=== PATIENT | male | born 1985 | race Caucasian/White ===

== ENCOUNTER 2018-07-18 17:08 | Emergency (ER) | payer MEDICAID, SELFPAY ==
[2018-07-18 17:13] VITALS: BP 145/79; PULSE 82; RESP 16; TEMP 36.8; O2SAT 99
--- NOTE | 2018-07-18 17:50 | W.ED.GENAD ---
Discharge Plan Disposition Patient Disposition: HOME Condition: Stable Discharge Details Chief Complaint: RespSymp Clinical Impression: Infection, respiratory tract Primary Care Provider: George Vigil ED Provider: Juan Rollins Home Meds and New Rx's Prescriptions: New azithromycin 250 mg tablet 250 mg PO DAILY 4 Days Qty: 4 RF: 0 benzonatate 200 mg capsule 200 mg PO TID PRN (Reason: cough) Qty: 30 RF: 0 Discharge Instructions Instructions: Cold Symptoms (ED) Additional Instructions: Return immediately for any new or significant worsening symptoms including high fevers, difficulty breathing, severe chest pain or further concerns he may have. Otherwise take medication as prescribed and follow-up with your primary care provider for reassessment if not improved in the next week Referrals: George Vigil [Primary Care Provider] - 1 week (If not improved) Medical Decision Making MDM Narrative Medical decision making narrative: Patient presenting to the emergency department for worsening cough. He states that his symptoms began about 2 weeks ago and thought it was his normal annual cold that he gets this time a year over the past 4 days has had significant worsening of cough, low-grade fever, and productive sputum. Physical exam shows clear lung sounds, ethmoid sinus tenderness, and mild erythema to the tonsils otherwise stable afebrile patient. Given patient's symptoms have worsened I am concerned for possible bacterial source of his illness and given his chief complaint of worsening cough I am concerned for a possible bronchitis or sinus infection. Patient is otherwise stable and there is still possibility that this is viral in nature so patient placed upon azithromycin given his otherwise healthy background and low risk. Patient given Tessalon Perles for cough suppressant and encouraged to use [id number] Mucinex and stay well-hydrated along with get plenty of rest. Patient encouraged to return for any new or worsening symptoms. After discussion of diagnosis and plan of care patient patient states no further needs, questions, or concerns at this time HPI General Mode of arrival: ambulatory. Date/Time Provider Initiated Documentation: 07/18/18 17:14. Limitations to Documentation: no limitations. Information obtained by: patient. History of Present Illness 33 year old M presents to the emergency department with the chief complaint of Cough, described as severe, with intensity rated at 5. and is localized to the chest. Patient reports no radiation. Patient started experiencing this week(s) (2) and it has been constant. No relieving factors improve symptom(s), No exacerbating factors reported . Patient did receive the following treatments prior to arrival, other (Tamiflu) Related Data Previous Rx's Medication Instructions Recorded azithromycin 250 mg PO DAILY 4 Days #4 tab 07/18/18 benzonatate 200 mg PO TID PRN #30 cap 07/18/18 Allergies Allergy/AdvReac Type Severity Reaction Status Date / Time aspirin AdvReac Unverified 07/18/18 17:19 General Stated Complaint: RespSymp FABY: 3 Review of Systems Constitutional Reports chills, Reports difficulty sleeping (Due to coughing), Reports fatigue, Reports fever(s) and Reports malaise ENT Reports hoarseness, Reports nasal congestion, Reports sinus pressure and Reports sore throat Cardiovascular Denies dyspnea Respiratory Denies dyspnea Musculoskeletal Denies joint swelling Integumentary/Breasts Denies rash Endocrine Reports fatigue PFSH Social History Smoking/Tobacco Use Status: Current every day Exam Const General: cooperative, comfortable and no acute distress Orientation: alert, awake and oriented x3 HENMT Head: normal to inspection Ears: hearing grossly normal bilaterally Face and sinus: sinus tenderness ethmoid Mouth: oral mucosae normal Throat: abnormal tonsil bilaterally erythema (mild) Eyes General: appearance normal, both eyes and all related structures Conjunctivae: conjunctivae normal Sclera: sclerae normal Neck Neck: normal visual inspection, full ROM, no lymphadenopathy, meningismus present and no JVD Resp Effort & Inspection: normal respiratory effort, able to speak in complete sentences, no audible wheezes, cough Quality of cough: actively coughing and not labored Auscultation: clear to auscultation bilaterally Cardio Rate: regular rate Rhythm: regular rhythm Heart Sounds: S1 normal and S2 normal Skin General skin exam: no rashes or lesions noted and dry skin Rashes: no rashes Neuro General: alert, awake, oriented x3 and gait normal Course Vital Signs Temperature 36.8 C 07/18/18 17:13 Pulse 82 07/18/18 17:13 Respiratory Rate 16 07/18/18 17:13 Blood Pressure 145/79 H 07/18/18 17:13 Pulse Oximetry 99 07/18/18 17:13 Temperature 36.8 C 07/18/18 17:13 Pulse 82 07/18/18 17:13 Respiratory Rate 16 07/18/18 17:13 Blood Pressure 145/79 H 07/18/18 17:13 Pulse Oximetry 99 07/18/18 17:13
--- NOTE | 2018-07-18 18:01 | ED.GENADUL_ITS ---
Discharge Plan Disposition Patient Disposition: HOME Condition: Stable Discharge Details Chief Complaint: RespSymp Clinical Impression: Infection, respiratory tract Primary Care Provider: George Vigil ED Provider: Juan Rollins Home Meds and New Rx's Prescriptions: New azithromycin 250 mg tablet 250 mg PO DAILY 4 Days Qty: 4 RF: 0 benzonatate 200 mg capsule 200 mg PO TID PRN (Reason: cough) Qty: 30 RF: 0 Discharge Instructions Instructions: Cold Symptoms (ED) Additional Instructions: Return immediately for any new or significant worsening symptoms including high fevers, difficulty breathing, severe chest pain or further concerns he may have. Otherwise take medication as prescribed and follow-up with your primary care provider for reassessment if not improved in the next week Referrals: George Vigil [Primary Care Provider] - 1 week (If not improved) Medical Decision Making MDM Narrative Medical decision making narrative: Patient presenting to the emergency department for worsening cough. He states that his symptoms began about 2 weeks ago and thought it was his normal annual cold that he gets this time a year over the past 4 days has had significant worsening of cough, low-grade fever, and productive sputum. Physical exam shows clear lung sounds, ethmoid sinus tenderness, and mild erythema to the tonsils otherwise stable afebrile patient. Given patient's symptoms have worsened I am concerned for possible bacterial source of his illness and given his chief complaint of worsening cough I am concerned for a possible bronchitis or sinus infection. Patient is otherwise stable and there is still possibility that this is viral in nature so patient placed upon azithromycin given his otherwise healthy background and low risk. Patient given Tessalon Perles for cough suppressant and encouraged to use [id number] Mucinex and stay well-hydrated along with get plenty of rest. Patient encouraged to return for any new or worsening symptoms. After discussion of diagnosis and plan of care patient patient states no further needs , questions, or concerns at this time HPI General Mode of arrival: ambulatory . Date/Time Provider Initiated Documentation: 07/18/18 17:14 . Limitations to Documentation: no limitations . Information obtained by: patient . History of Present Illness 33 year old M presents to the emergency department with the chief complaint of Cough, described as severe, with intensity rated at 5. and is localized to the chest. Patient reports no radiation. Patient started experiencing this week(s) (2) and it has been constant. No relieving factors improve symptom(s), No exacerbating factors reported . Patient did receive the following treatments prior to arrival, other (Tamiflu) Related Data Previous Rx's Medication Instructions Recorded azithromycin 250 mg PO DAILY 4 Days #4 tab 07/18/18 benzonatate 200 mg PO TID PRN #30 cap 07/18/18 Allergies Allergy/AdvReac Type Severity Reaction Status Date / Time aspirin AdvReac Unverified 07/18/18 17:19 General Stated Complaint: RespSymp FABY: 3 Review of Systems Constitutional Reports chills, Reports difficulty sleeping (Due to coughing), Reports fatigue, Reports fever(s) and Reports malaise ENT Reports hoarseness, Reports nasal congestion, Reports sinus pressure and Reports sore throat Cardiovascular Denies dyspnea Respiratory Denies dyspnea Musculoskeletal Denies joint swelling Integumentary/Breasts Denies rash Endocrine Reports fatigue PFSH Social History Smoking/Tobacco Use Status: Current every day Exam Const General: cooperative, comfortable and no acute distress Orientation: alert, awake and oriented x3 HENMT Head: normal to inspection Ears: hearing grossly normal bilaterally Face and sinus: sinus tenderness ethmoid Mouth: oral mucosae normal Throat: abnormal tonsil bilaterally erythema (mild) Eyes General: appearance normal, both eyes and all related structures Conjunctivae: conjunctivae normal Sclera: sclerae normal Neck Neck: normal visual inspection, full ROM, no lymphadenopathy, meningismus present and no JVD Resp Effort & Inspection: normal respiratory effort, able to speak in complete sentences, no audible wheezes, cough Quality of cough: actively coughing and not labored Auscultation: clear to auscultation bilaterally Cardio Rate: regular rate Rhythm: regular rhythm Heart Sounds: S1 normal and S2 normal Skin General skin exam: no rashes or lesions noted and dry skin Rashes: no rashes Neuro General: alert, awake, oriented x3 and gait normal Course Vital Signs Temperature 36.8 C 07/18/18 17:13 Pulse 82 07/18/18 17:13 Respiratory Rate 16 07/18/18 17:13 Blood Pressure 145/79 H 07/18/18 17:13 Pulse Oximetry 99 07/18/18 17:13 Temperature 36.8 C 07/18/18 17:13 Pulse 82 07/18/18 17:13 Respiratory Rate 16 07/18/18 17:13 Blood Pressure 145/79 H 07/18/18 17:13 Pulse Oximetry 99 07/18/18 17:13
[2018-07-18 18:15] VITALS: BP 122/80; PULSE 86; RESP 18; TEMP 36.8; O2SAT 99
[2018-07-18] MEDS: Azithromycin 250 MG TAB 500 MG PO (18:15)
[2018-07-18] MEDS: Benzonatate 200 MG CAP PO (18:15)
== END 2018-07-18 18:16 | disposition home or self-care (01) ==
PROVIDERS: Emergency Provider Nurse Practitioner Family; PCP Family Medicine
DX: J06.9 Acute upper respiratory infection, unspecified (principal)
CPT/HCPCS: 99283

== ENCOUNTER 2018-07-21 19:32 | Emergency (ER) | payer MEDICAID, SELFPAY ==
[2018-07-21 19:36] VITALS: PULSE 66; RESP 17; TEMP 37.1; O2SAT 98
--- NOTE | 2018-07-21 19:46 | DI.RAD_ITS ---
SYMPTOMS/DIAGNOSIS: COUGH, WHEEZE PA AND LATERAL CHEST: Comparison 11/03/17. The heart is normal in size. The lungs are clear. The mediastinal structures and pleura appear intact. CONCLUSION: Normal chest.
--- NOTE | 2018-07-21 19:47 | W.ED.GENAD ---
Discharge Plan Disposition Patient Disposition: HOME Condition: Good Discharge Details Chief Complaint: Recheck Clinical Impression: Bronchitis, acute, with bronchospasm Primary Care Provider: George Vigil ED Provider: Reji Staples Home Meds and New Rx's Prescriptions: New prednisone 20 mg tablet 40 mg PO DAILY 5 Days Qty: 10 RF: 0 Continue azithromycin 250 mg tablet 250 mg PO DAILY 4 Days Qty: 4 RF: 0 benzonatate 200 mg capsule 200 mg PO TID PRN (Reason: cough) Qty: 30 RF: 0 Discharge Instructions Instructions: Acute Bronchitis (ED) Additional Instructions: Continue your efforts to decrease smoking. Continue the previously prescribed azithromycin. Take prednisone as prescribed, next dose tomorrow morning. May use albuterol inhaler as needed every 4 hours during times of illness. May use Robitussin at bedtime as needed for cough. Follow-up with Dr. Vigil for recheck if not improving in 5-7 days time Medical Decision Making 33-year-old male smoker presents with persistent cough for 10-14 days time in the face of recent initiation of azithromycin. He is afebrile and well-appearing but with end expiratory wheeze bilaterally on exam. Differential diagnosis is bronchitis, bronchospasm, must rule out a pneumonia. Patient given oral steroids, inhaled DuoNeb and referred for chest x-ray. Patient improved with inhaled beta agonist. No evidence of pneumonia on x-ray. We will have him continue previously prescribed azithromycin. I will add a burst of steroids as do feel he has a significant component of bronchospasm. Will trial a small amount of Robitussin for home use as well. Stable for discharge to home. Return precautions to the ER were discussed with the patient prior to discharge. HPI General Mode of arrival: ambulatory. Date/Time Provider Initiated Documentation: 07/21/18 19:40. Limitations to Documentation: no limitations. Information obtained by: patient. History of Present Illness 33 year old M presents to the emergency department with the chief complaint of Cough, described as moderate, Quality is described as aching, and is localized to the chest. Patient reports no radiation. Patient started experiencing this day(s) No relieving factors improve symptom(s), No exacerbating factors reported . Patient notes other (Post tussive emesis); denies headaches, syncope and weakness. HPI Narrative: Cough: 33-year-old male smoker presents with 2+ weeks of persistent cough, congestion. He was seen on the and started on azithromycin which she has been taking for 3 days. No fever. Minimal production of sputum. No chest pain. Related Data Home Medications Medication Instructions Recorded Confirmed azithromycin 250 mg PO DAILY 4 Days #4 tab 07/18/18 benzonatate 200 mg PO TID PRN #30 cap 07/18/18 prednisone 40 mg PO DAILY 5 Days #10 tab 07/21/18 Previous Rx's Medication Instructions Recorded azithromycin 250 mg PO DAILY 4 Days #4 tab 07/18/18 benzonatate 200 mg PO TID PRN #30 cap 07/18/18 prednisone 40 mg PO DAILY 5 Days #10 tab 07/21/18 Allergies Allergy/AdvReac Type Severity Reaction Status Date / Time aspirin AdvReac Unverified 07/18/18 17:19 General Stated Complaint: Recheck FABY: 4 Review of Systems Review of Systems 6 systems reviewed and otherwise - [facility] Social History Smoking/Tobacco Use Status: Current every day Exam Narrative Exam Narrative: GEN: awake, alert, oriented 3. Pleasant, well groomed, interactive. HEAD: Normocephalic, atraumatic ENT: Mucous membranes moist, oropharynx unremarkable, External ear exam unremarkable EYES: PERRL, EOMI NECK: Full ROM, no KAMLESH, no menigismus CHEST/RESP: Nontender, bilateral and expiratory wheeze with trace rhonchi present CARDIOVASCULAR: RRR, no murmur, rub mansoor. 2+ Rad pulse bilateral ABDOMEN: Soft, nontender, no mass. +Bowel sounds EXT: Full ROM, no edema, no rash Neuro: Grossly normal neurologic exam, conversant, interactive. Psych: Speech fluent, thoughts congruent, affect normal Course Vital Signs Temperature 37.1 C 07/21/18 19:36 Pulse 66 07/21/18 19:36 Respiratory Rate 17 07/21/18 19:36 Pulse Oximetry 98 07/21/18 19:36 Temperature 37.1 C 07/21/18 19:36 Temperature Source Temporal Artery Scan 07/21/18 19:36 Pulse 66 07/21/18 19:36 Respiratory Rate 17 07/21/18 19:36 Respiratory Effort 07/21/18 19:36 Blood Pressure Position Sitting 07/21/18 19:36 Pulse Oximetry 98 07/21/18 19:36 Oxygen Delivery Method Room Air 07/21/18 19:36 Oxygen Flow Rate 0 07/21/18 19:36 Pain Level 8 07/21/18 19:36
--- NOTE | 2018-07-21 19:50 | ED.GENADUL_ITS ---
Discharge Plan Disposition Patient Disposition: HOME Condition: Good Discharge Details Chief Complaint: Recheck Clinical Impression: Bronchitis, acute, with bronchospasm Primary Care Provider: George Vigil ED Provider: Reji Staples Home Meds and New Rx's Prescriptions: New prednisone 20 mg tablet 40 mg PO DAILY 5 Days Qty: 10 RF: 0 Continue azithromycin 250 mg tablet 250 mg PO DAILY 4 Days Qty: 4 RF: 0 benzonatate 200 mg capsule 200 mg PO TID PRN (Reason: cough) Qty: 30 RF: 0 Discharge Instructions Instructions: Acute Bronchitis (ED) Additional Instructions: Continue your efforts to decrease smoking. Continue the previously prescribed azithromycin. Take prednisone as prescribed, next dose tomorrow morning. May use albuterol inhaler as needed every 4 hours during times of illness. May use Robitussin at bedtime as needed for cough. Follow-up with Dr. Vigil for recheck if not improving in 5-7 days time Medical Decision Making 33-year-old male smoker presents with persistent cough for 10-14 days time in the face of recent initiation of azithromycin. He is afebrile and well- appearing but with end expiratory wheeze bilaterally on exam. Differential diagnosis is bronchitis, bronchospasm, must rule out a pneumonia. Patient given oral steroids, inhaled DuoNeb and referred for chest x-ray. Patient improved with inhaled beta agonist. No evidence of pneumonia on x-ray. We will have him continue previously prescribed azithromycin. I will add a burst of steroids as do feel he has a significant component of bronchospasm. Will trial a small amount of Robitussin for home use as well. Stable for discharge to home. Return precautions to the ER were discussed with the patient prior to discharge. HPI General Mode of arrival: ambulatory . Date/Time Provider Initiated Documentation: 07/21/18 19:40 . Limitations to Documentation: no limitations . Information obtained by: patient . History of Present Illness 33 year old M presents to the emergency department with the chief complaint of Cough, described as moderate, Quality is described as aching, and is localized to the chest. Patient reports no radiation. Patient started experiencing this day(s) No relieving factors improve symptom(s), No exacerbating factors reported . Patient notes other (Post tussive emesis); denies headaches, syncope and weakness. HPI Narrative: Cough: 33-year-old male smoker presents with 2+ weeks of persistent cough, congestion. He was seen on the and started on azithromycin which she has been taking for 3 days. No fever. Minimal production of sputum. No chest pain. Related Data Home Medications Medication Instructions Recorded Confirmed azithromycin 250 mg PO DAILY 4 Days #4 tab 07/18/18 benzonatate 200 mg PO TID PRN #30 cap 07/18/18 prednisone 40 mg PO DAILY 5 Days #10 tab 07/21/18 Previous Rx's Medication Instructions Recorded azithromycin 250 mg PO DAILY 4 Days #4 tab 07/18/18 benzonatate 200 mg PO TID PRN #30 cap 07/18/18 prednisone 40 mg PO DAILY 5 Days #10 tab 07/21/18 Allergies Allergy/AdvReac Type Severity Reaction Status Date / Time aspirin AdvReac Unverified 07/18/18 17:19 General Stated Complaint: Recheck FABY: 4 Review of Systems Review of Systems 6 systems reviewed and otherwise - [facility] Social History Smoking/Tobacco Use Status: Current every day Exam Narrative Exam Narrative: GEN: awake, alert, oriented 3. Pleasant, well groomed, interactive. HEAD: Normocephalic, atraumatic ENT: Mucous membranes moist, oropharynx unremarkable, External ear exam unremarkable EYES: PERRL, EOMI NECK: Full ROM, no KAMLESH, no menigismus CHEST/RESP: Nontender, bilateral and expiratory wheeze with trace rhonchi present CARDIOVASCULAR: RRR, no murmur, rub mansoor. 2+ Rad pulse bilateral ABDOMEN: Soft, nontender, no mass. +Bowel sounds EXT: Full ROM, no edema, no rash Neuro: Grossly normal neurologic exam, conversant, interactive. Psych: Speech fluent, thoughts congruent, affect normal Course Vital Signs Temperature 37.1 C 07/21/18 19:36 Pulse 66 07/21/18 19:36 Respiratory Rate 17 07/21/18 19:36 Pulse Oximetry 98 07/21/18 19:36 Temperature 37.1 C 07/21/18 19:36 Temperature Source Temporal Artery Scan 07/21/18 19:36 Pulse 66 07/21/18 19:36 Respiratory Rate 17 07/21/18 19:36 Respiratory Effort 07/21/18 19:36 Blood Pressure Position Sitting 07/21/18 19:36 Pulse Oximetry 98 07/21/18 19:36 Oxygen Delivery Method Room Air 07/21/18 19:36 Oxygen Flow Rate 0 07/21/18 19:36 Pain Level 8 07/21/18 19:36
[2018-07-21] MEDS: predniSONE 20 MG TAB 60 MG PO (20:00)
[2018-07-21 20:24] VITALS: RESP 4
[2018-07-21] MEDS: Albuterol/Ipratropium 3 ML UPD VIAL UPD (20:24)
[2018-07-21] MEDS: guaiFENesin/D-METHORPHAN HB 5 ML CUP 10 ML PO (21:19)
[2018-07-21] MEDS: Albuterol HFA 8 GM 60 PUFF INH IH (21:19)
[2018-07-21] MEDS: guaiFENesin/D-METHORPHAN HB 5 ML CUP 20 ML PO (21:46)
[2018-07-21 21:56] VITALS: PULSE 66; RESP 17; TEMP 37.1; O2SAT 98
--- NOTE | 2018-07-21 22:03 | DI.VRAD_ITS ---
EXAM: XR Chest, 2 Views EXAM DATE/TIME: 07/21/2018 7:47 PM CLINICAL HISTORY: 33 years old, male; Signs and symptoms; Cough TECHNIQUE: XR of the chest, 2 views. COMPARISON: CR CHEST 2 VIEWS PA,LAT 11/03/2017 4:59 PM FINDINGS: Lungs: Unremarkable. No consolidation. Pleural space: Unremarkable. No pleural effusion. No pneumothorax. Heart/Mediastinum: Unremarkable. No cardiomegaly. Bones/joints: Unremarkable for patient's age. IMPRESSION: No acute findings. Dictated and Authenticated by: Kevin Lucero MD. Ordering:OSMIN OAKLEY MD
== END 2018-07-21 22:00 | disposition home or self-care (01) ==
PROVIDERS: Emergency Provider Emergency Medicine; PCP Family Medicine
DX: J20.9 Acute bronchitis, unspecified (principal); F17.210 Nicotine dependence, cigarettes, uncomplicated
CPT/HCPCS: 94640; 99284; 71046; J7512; J7620

== ENCOUNTER 2018-12-06 18:04 | Emergency (ER) | payer MEDICAID, SELFPAY ==
[2018-12-06] VITALS (7 sets, daily range): BP systolic 129–138; BP diastolic 64–101; PULSE 64–73; RESP 16–22; TEMP 36.6; O2SAT 96–99
--- NOTE | 2018-12-06 18:24 | DI.RAD_ITS ---
SYMPTOM/DIAGNOSIS: CHEST PAIN. CHEST X-RAY: PA and lateral. Comparison 07/21/18 The heart is normal in size. The lungs are clear. The mediastinal structures and pleura appear intact. CONCLUSION: Normal chest.
--- NOTE | 2018-12-06 18:25 | W.ED.GENAD ---
Discharge Plan Disposition Patient Disposition: HOME Condition: Stable Discharge Details Chief Complaint: GenMedical Clinical Impression: Chest pain Primary Care Provider: George Vigil ED Provider: Ramesh Avalos Home Meds and New Rx's Prescriptions: No Action benzonatate 200 mg capsule 200 mg PO TID PRN (Reason: cough) Qty: 30 RF: 0 Discharge Instructions Instructions: Chest Pain (ED) Additional Instructions: Your blood work, ecg and chest xray did not show any significant abnormalities Follow up with your primary care provider within 1-2 weeks if you feel your pain is worsening, difficulty breathing or feel significantly more ill return to the emergency department Medical Decision Making 33 yo male come in with chest pain since yesterday along with cough for several days and had small amount of blood in his sputum yesterday. Denies any recent travel, surgeries, and has no pain with exertion, shortness of breath or n/v or diaphoresis. He has no murmurs, clear lungs, no leg swelling or calf pain. Has no rashes, does smoke, denies alcohol or drug use. Has reproducible chest tenderness on exam. His heart score is 1 based on his hx of smoking, ekg shows no ischemic findings, will send troponin. Jama alas, had hemoptysis yesterday so can't use perc, will send d d felipa. Normal vascular exam so doubt dissection and no tearing back pain pt remains stable, labs and imaging negative, given over 4 hours of pain do not feel repeat troponin indicated. Advised f/u with pcp and return precautions Differential Diagnosis chest wall pain, pna, bronchitis, pe, acs Imaging Data Radiologic Study: Attestation: I personally reviewed and interpreted this imaging study as follows: Imaging: X-Ray Radiologist's impression: negative chest Lab Data Lab results reviewed: Yes I reviewed the patient's lab results. ECG Data Attestation: I personally reviewed and interpreted this ECG (s) as follows: Prior ECG tracings: not available for review Interpretation: sinus rhythm, rate of 55, pr 164, no acute st t wave ischemic findings HPI General Mode of arrival: ambulatory. Date/Time Provider Initiated Documentation: 12/06/18 18:10. Limitations to Documentation: no limitations. Information obtained by: patient. History of Present Illness 33 year old M presents to the emergency department with the chief complaint of chest pain, described as moderate, with intensity rated at 4. Quality is described as aching, and is localized to the chest. Patient reports no radiation. Patient started experiencing this day(s) (1) and it has been constant. No relieving factors improve symptom(s), No exacerbating factors reported . Patient notes cough. Patient did receive the following treatments prior to arrival, none Related Data Home Medications Medication Instructions Recorded Confirmed benzonatate 200 mg PO TID PRN #30 cap 07/18/18 Previous Rx's Medication Instructions Recorded benzonatate 200 mg PO TID PRN #30 cap 07/18/18 Allergies Allergy/AdvReac Type Severity Reaction Status Date / Time aspirin AdvReac Unverified 07/18/18 17:19 General Stated Complaint: GenMedical FABY: 2 Review of Systems Review of Systems All systems reviewed & are unremarkable except as noted in HPI and below Constitutional Denies chills, Denies fever(s) and Denies weakness ENT Denies change in voice Cardiovascular Denies dyspnea Respiratory Reports cough and Denies dyspnea Gastrointestinal Denies abdominal pain, Denies nausea and Denies vomiting Musculoskeletal Denies joint swelling Integumentary/Breasts Denies rash Neurologic Denies weakness Endocrine Denies cold intolerance and Denies heat intolerance [facility] Social History Smoking and Tabacco status: Current every day Exam Const General: no acute distress Orientation: alert HENMT Head: normal to inspection Ears: external ears normal General nose exam: external nose normal Mouth: moist mucous membranes Eyes General: appearance normal, both eyes and all related structures Neck Neck: normal visual inspection Resp Effort & Inspection: normal respiratory effort and able to speak in complete sentences Cardio Rate: regular rate Skin General skin exam: no rashes or lesions noted Neuro General: alert and oriented x3 Extrem General: normal to inspection Psych Mental Status: mental status grossly normal Course Vital Signs Temperature 36.6 C 12/06/18 18:09 Pulse 69 12/06/18 18:09 Respiratory Rate 18 12/06/18 18:09 Blood Pressure 130/101 H 12/06/18 18:09 Pulse Oximetry 99 12/06/18 18:09 Temperature 36.6 C 12/06/18 18:09 Temperature Source Temporal Artery Scan 12/06/18 18:09 Pulse 69 12/06/18 18:09 Respiratory Rate 18 12/06/18 18:09 Respiratory Effort Non-Labored 12/06/18 18:12 Blood Pressure 130/101 H 12/06/18 18:09 Blood Pressure Position Sitting 12/06/18 18:09 Pulse Oximetry 99 12/06/18 18:09 Oxygen Delivery Method Room Air 12/06/18 18:09 Oxygen Flow Rate 0 12/06/18 18:09
--- NOTE | 2018-12-06 18:29 | ED.GENADUL_ITS ---
Discharge Plan Disposition Patient Disposition: HOME Condition: Stable Discharge Details Chief Complaint: GenMedical Clinical Impression: Chest pain Primary Care Provider: George Vigil ED Provider: Ramesh Avalos Home Meds and New Rx's Prescriptions: No Action benzonatate 200 mg capsule 200 mg PO TID PRN (Reason: cough) Qty: 30 RF: 0 Discharge Instructions Instructions: Chest Pain (ED) Additional Instructions: Your blood work, ecg and chest xray did not show any significant abnormalities Follow up with your primary care provider within 1-2 weeks if you feel your pain is worsening, difficulty breathing or feel significantly more ill return to the emergency department Medical Decision Making 33 yo male come in with chest pain since yesterday along with cough for several days and had small amount of blood in his sputum yesterday. Denies any recent travel, surgeries, and has no pain with exertion, shortness of breath or n/v or diaphoresis. He has no murmurs, clear lungs, no leg swelling or calf pain. Has no rashes, does smoke, denies alcohol or drug use. Has reproducible chest tenderness on exam. His heart score is 1 based on his hx of smoking, ekg shows no ischemic findings, will send troponin. Jama alas, had hemoptysis yesterday so can't use perc, will send d d felipa. Normal vascular exam so doubt dissection and no tearing back pain pt remains stable, labs and imaging negative, given over 4 hours of pain do not feel repeat troponin indicated. Advised f/u with pcp and return precautions Differential Diagnosis chest wall pain, pna, bronchitis, pe, acs Imaging Data Radiologic Study: Attestation: I personally reviewed and interpreted this imaging study as follows: Imaging: X-Ray Radiologist's impression: negative chest Lab Data Lab results reviewed: Yes I reviewed the patient's lab results. ECG Data Attestation: I personally reviewed and interpreted this ECG (s) as follows: Prior ECG tracings: not available for review Interpretation: sinus rhythm, rate of 55, pr 164, no acute st t wave ischemic findings HPI General Mode of arrival: ambulatory . Date/Time Provider Initiated Documentation: 12/06/18 18:10 . Limitations to Documentation: no limitations . Information obtained by: patient . History of Present Illness 33 year old M presents to the emergency department with the chief complaint of chest pain, described as moderate, with intensity rated at 4. Quality is described as aching, and is localized to the chest. Patient reports no radiation. Patient started experiencing this day(s) (1) and it has been constant. No relieving factors improve symptom(s), No exacerbating factors reported . Patient notes cough. Patient did receive the following treatments prior to a rrival, none Related Data Home Medications Medication Instructions Recorded Confirmed benzonatate 200 mg PO TID PRN #30 cap 07/18/18 Previous Rx's Medication Instructions Recorded benzonatate 200 mg PO TID PRN #30 cap 07/18/18 Allergies Allergy/AdvReac Type Severity Reaction Status Date / Time aspirin AdvReac Unverified 07/18/18 17:19 General Stated Complaint: GenMedical FABY: 2 Review of Systems Review of Systems All systems reviewed & are unremarkable except as noted in HPI and below Constitutional Denies chills, Denies fever(s) and Denies weakness ENT Denies change in voice Cardiovascular Denies dyspnea Respiratory Reports cough and Denies dyspnea Gastrointestinal Denies abdominal pain, Denies nausea and Denies vomiting Musculoskeletal Denies joint swelling Integumentary/Breasts Denies rash Neurologic Denies weakness Endocrine Denies cold intolerance and Denies heat intolerance [facility] Social History Smoking and Tabacco status: Current every day Exam Const General: no acute distress Orientation: alert HENMT Head: normal to inspection Ears: external ears normal General nose exam: external nose normal Mouth: moist mucous membranes Eyes General: appearance normal, both eyes and all related structures Neck Neck: normal visual inspection Resp Effort & Inspection: normal respiratory effort and able to speak in complete sentences Cardio Rate: regular rate Skin General skin exam: no rashes or lesions noted Neuro General: alert and oriented x3 Extrem General: normal to inspection Psych Mental Status: mental status grossly normal Course Vital Signs Temperature 36.6 C 12/06/18 18:09 Pulse 69 12/06/18 18:09 Respiratory Rate 18 12/06/18 18:09 Blood Pressure 130/101 H 12/06/18 18:09 Pulse Oximetry 99 12/06/18 18:09 Temperature 36.6 C 12/06/18 18:09 Temperature Source Temporal Artery Scan 12/06/18 18:09 Pulse 69 12/06/18 18:09 Respiratory Rate 18 02/08/19 18:09 Respiratory Effort Non-Labored 12/06/18 18:12 Blood Pressure 130/101 H 12/06/18 18:09 Blood Pressure Position Sitting 12/06/18 18:09 Pulse Oximetry 99 12/06/18 18:09 Oxygen Delivery Method Room Air 12/06/18 18:09 Oxygen Flow Rate 0 12/06/18 18:09
[2018-12-06 18:51] LABS: Abs Immature Grans 0.02 k/cumm (0.0-0.09); Absolute Basophil Count 0.04 k/cumm (0.0-0.2); Absolute Eosinophil Count 0.22 k/cumm (0.0-0.7); Absolute Lymphocyte Count 2.91 k/cumm (1.2-3.4); Absolute Monocyte Count 0.76 k/cumm (0.11-0.7); Absolute Neutrophil Count 3.56 k/cumm (1.2-6.7); Basophils % 0.5; Eosinophils % 2.9; HCT 41.6 % (40.0-50.0); HGB 14.3 g/dL (13.5-17.5); Immature Grans % 0.3; Lymphocytes % 38.7; Mean Corp. HGB Concentration 34.4 g/dL (32.0-36.0); Mean Corpuscular Hemoglobin 31.1 pg (27.0-33.0); Mean Corpuscular Volume 90.4 fL (80-95); Mean Platelet Volume 8.9 fL (8.0-11.0); Monocytes % 10.1; Neutrophils % 47.5; Platelet Count 256 x1000/uL (130-400); RBC Distribution Width 12.1 % (11.8-14.1); White Blood Cell Count 7.51 k/cumm (4.4-10.8)
[2018-12-06] MEDS: Normal Saline Flush 10 ML SYR IVP (18:52)
[2018-12-06 19:15] LABS: ALT 24 U/L (12-78); AST 23 U/L (15-37); Albumin 3.9 g/dL (3.4-5.0); Alkaline Phosphatase 79 U/L (46-116); BUN 11 mg/dL (7-18); Bilirubin, Direct 0.08 mg/dL (0.00-0.20); Bilirubin, Total 0.3 mg/dL (0.2-1.0); CREATININE 0.93 mg/dL (0.70-1.30); Calcium 8.7 mg/dL (8.5-10.1); Chloride 105 mmol/L (98-107); Glucose 98 mg/dL (70-100); Lipase 126 U/L (73-393); Magnesium 1.9 mg/dL (1.8-2.4); Potassium 3.4 mmol/L (3.5-5.1); Sodium 141 mmol/L (136-145); Total Protein 7.3 g/dL (6.4-8.2); Troponin I < 0.02 ng/mL (0.00-0.06)
--- NOTE | 2018-12-06 19:21 | DI.VRAD_ITS ---
EXAM: XR Chest, 2 Views EXAM DATE/TIME: 12/06/2018 6:25 PM CLINICAL HISTORY: 33 years old, male; Pain; Chest pain; Type not specified TECHNIQUE: XR of the chest, 2 views. COMPARISON: CR XR CHEST 2V PA LATERAL 07/21/2018 8:35 PM FINDINGS: Lungs: Unremarkable. No consolidation. Pleural space: Unremarkable. No pleural effusion. No pneumothorax. Heart/Mediastinum: Unremarkable. No cardiomegaly. Bones/joints: Unremarkable. IMPRESSION: Negative chest. Dictated and Authenticated by: Jeremie Valencia MD. Ordering:JAIME Chandler MD
[2018-12-06 19:26] LABS: D-Dimer 177 ng/mlFEU (<500)
== END 2018-12-06 20:00 | disposition home or self-care (01) ==
PROVIDERS: Emergency Provider Emergency Medicine; PCP Family Medicine
DX: R07.9 Chest pain, unspecified (principal); R05 Cough; Z87.891 Personal history of nicotine dependence
CPT/HCPCS: 36415; 80053; 80076; 83690; 93005; 99285; 71046; 83735; 84484; 85025; 85379; 93010; J3490

== ENCOUNTER 2019-07-03 22:13 | Emergency (ER) | payer MEDICAID, SELFPAY ==
[2019-07-03 22:27] VITALS: BP 134/61; PULSE 81; RESP 16; TEMP 36.2; O2SAT 97
--- NOTE | 2019-07-03 22:32 | W.ED.GENAD ---
Discharge Plan Disposition Patient Disposition: HOME Condition: Stable Discharge Details Chief Complaint: Nk/Back Pain Clinical Impression: Acute low back pain with sciatica Primary Care Provider: George Vigil ED Provider: Juan Rollins Home Meds and New Rx's Prescriptions: New prednisone 20 mg tablet See Rx Instructions .ROUTE .COMPLEX Qty: 7 RF: 0 cyclobenzaprine 10 mg tablet 10 mg PO TID PRN (Reason: muscle spasm) Qty: 20 RF: 0 Discharge Instructions Instructions: Sciatica (ED), Lower Back Exercises (ED) Additional Instructions: Return immediately to the emergency department for any fever associate with your back pain, saddle anesthesia, change in bowel or bladder function, or significant or severe dysfunction of your lower extremities. Otherwise you should minimize heavy lifting bending and twisting type motions and perform gentle range of motion of your lower back. If not improving over the next week please follow-up with your primary care provider for reassessment. Please minimize use of NSAIDs while on steroids but you may take acetaminophen 1000 mg every 6 hours. You may take your Flexeril you have at home this evening or use Benadryl as sleep aid if needed. Referrals: George Vigil [Primary Care Provider] - (As needed for reassessment) Medical Decision Making Patient presenting to the emergency department for chief complaint of back pain. Patient reports this morning he woke up and noted a dull ache in his back with some radiation down his left leg. Throughout the course of the day pain is got significantly worse. Patient states history of bulging disc and that he had seen [facility] neurosurgery in the past with MRIs and that he was a possible surgical candidate but he did not follow-up with them as he did not want to have surgery performed. Patient does state he took a Flexeril this morning along with some Tylenol and acetaminophen with minimal improvement. Patient denies any fever chills, saddle anesthesia, change in bowel or bladder function. Physical exam is remarkable for mid lumbar tenderness with right buttock tenderness. DTRs are intact and equal bilateral, pulses also intact and strong bilateral, patient has positive straight leg test, otherwise unremarkable exam. Patient has no signs of cauda equina, central cord syndrome, or epidural abscess. Patient drove himself to the emergency department so we will plan to give patient ketorolac and lidocaine patch. Given patient's history of herniated disc I do feel that burst of steroids may be of benefit to patient. Patient placed on prednisone for radiculopathy. Return precautions discussed. After discussion of diagnosis and plan of care patient has no further needs, questions, or concerns and states clear understanding to return to the emergency department for any worsening symptoms. HPI General Mode of arrival: ambulatory. Date/Time Provider Initiated Documentation: 07/03/19 22:19. Limitations to Documentation: no limitations. Information obtained by: patient and RN notes reviewed. History of Present Illness 33 year old M presents to the emergency department with the chief complaint of Back pain, described as severe, with intensity rated at 8. Quality is described as sharp, and is localized to the back. Patient extremity (Right leg). Patient started experiencing this hour(s) (16) and it has been constant. Movement worsens symptoms . Patient notes no other symptoms.. Patient did receive the following treatments prior to arrival, NSAID Related Data Home Medications Medication Instructions Recorded Confirmed cyclobenzaprine 10 mg PO TID PRN #20 tab 07/03/19 prednisone See Rx Instructions .ROUTE 07/03/19 .COMPLEX #7 tab Previous Rx's Medication Instructions Recorded cyclobenzaprine 10 mg PO TID PRN #20 tab 07/03/19 prednisone See Rx Instructions .ROUTE 07/03/19 .COMPLEX #7 tab Allergies Allergy/AdvReac Type Severity Reaction Status Date / Time aspirin AdvReac Unverified 07/03/19 22:30 General Stated Complaint: Nk/Back Pain FABY: 4 Review of Systems Constitutional Denies chills and Denies fever(s) Cardiovascular Denies chest pain and Denies dyspnea on exertion Respiratory Denies cough and Denies dyspnea on exertion Gastrointestinal Denies abdominal pain, Denies change in bowel habits, Denies diarrhea, Denies nausea and Denies vomiting Genitourinary Denies difficulty urinating and Denies urinary incontinence Musculoskeletal Reports as per HPI and Reports back pain Neurologic Denies sensory deficit [facility] Social History Smoking/Tobacco Use Status: Current every day Drug use: Never Do you feel safe at home: Yes Do you feel safe in your relationship?: Yes Exam Const General: cooperative and no acute distress Orientation: alert, awake and oriented x3 Neck Neck: normal visual inspection, full ROM and no meningeal signs Resp Effort & Inspection: normal respiratory effort Auscultation: clear to auscultation bilaterally Cardio Rate: regular rate Rhythm: regular rhythm Heart Sounds: S1 normal and S2 normal Back/Spine/Pelvis Thoracic/Lumbar Spine: No mass, pain with thoraco-lumbar ROM, paraspinal tenderness, thoraco-lumbar ROM limited, No thoracic spinal tenderness, lumbar spinal tenderness (C3-C4) and straight leg raise positive Pelvis: no pain with anterior-posterior compression, no pain with lateral compression, buttock tenderness on the right and sciatic notch tenderness on the right Neuro General: alert, awake and oriented x3 DTR's: Rt Patellar: 2+, Lt Patellar: 2+, Rt Ankle: 2+ and Lt Ankle: 2+ Extrem Right lower extremity: full ROM and normal capillary refill Course Vital Signs Temperature 36.2 C L 07/03/19 22:27 Pulse 81 07/03/19 22:27 Respiratory Rate 16 07/03/19 22:27 Blood Pressure 134/61 07/03/19 22:27 Pulse Oximetry 97 07/03/19 22:27 Temperature 36.2 C L 07/03/19 22:27 Temperature Source Temporal Artery Scan 07/03/19 22:27 Pulse 81 07/03/19 22:27 Respiratory Rate 16 07/03/19 22:27 Respiratory Effort Non-Labored 07/03/19 22:30 Blood Pressure 134/61 07/03/19 22:27 Blood Pressure Position Sitting 07/03/19 22:27 Pulse Oximetry 97 07/03/19 22:27 Oxygen Delivery Method Room Air 07/03/19 22:27 Oxygen Flow Rate 0 07/03/19 22:27 Pain Level 8 07/03/19 22:30
[2019-07-03] MEDS: Lidocaine 5% Patch 1 PATCH TP (22:35)
[2019-07-03] MEDS: Ketorolac 60 MG/2 ML VIAL IM (22:36)
[2019-07-03 23:08] VITALS: BP 134/61; PULSE 81; RESP 16; TEMP 36.2; O2SAT 97
== END 2019-07-03 23:10 | disposition home or self-care (01) ==
PROVIDERS: Emergency Provider Nurse Practitioner Family; PCP Family Medicine
DX: M54.41 Lumbago with sciatica, right side (principal)
CPT/HCPCS: 96372; 99284; 99283; J1885

== ENCOUNTER 2019-09-07 19:34 | Emergency (ER) | payer MEDICAID, SELFPAY ==
[2019-09-07 19:40] VITALS: BP 138/91; PULSE 83; RESP 18; TEMP 36.5; O2SAT 98
--- NOTE | 2019-09-07 19:56 | ED.GENADUL_ITS ---
Discharge Plan Disposition Patient Disposition: HOME Condition: Good Discharge Details Chief Complaint: RespSymp Clinical Impression: Strep pharyngitis, Pneumonia Primary Care Provider: George Vigil ED Provider: Tess Bautista Home Meds and New Rx's Prescriptions: New amoxicillin-pot clavulanate [Augmentin] 875-125 mg tablet 1 tab PO BID Qty: 20 RF: 0 Discharge Instructions Instructions: Strep Throat (ED), Pneumonia (ED) Additional Instructions: Drink plenty of fluids. Motrin or Tylenol for soreness if needed. Use antibiotic as prescribed. Warm salt water gargles for comfort. Consider Cepacol lozenge for comfort. Throw away her toothbrush on day 3 of treatment then again at the end of course of treatment. Rest activities as tolerated. Increase vitamin C. Recheck with primary care doctor if not improving the next 3 to 5 days as discussed as expected. Return for any alarming symptoms, worsening, difficulty breathing, difficulty swallowing or eating as discussed if needed Medical Decision Making Is a 34-year-old gentleman who presents to the emergency room this evening for complaints of 2 days of illness. Patient reports mild nasal congestion, denies ear pain. Denies significant headache or dizziness. Patient does report fever of 102 noted today. Sore throat present without associated voice change or trismus. Patient does report a cough, is a smoker. Does report mild increase in cough with mild associated wheezing and occasional shortness of breath but no significant difficulty breathing. Patient does report he did have a coughing episode in which he produced sputum which was blood-tinged, this was a single isolated episode. Patient denies chest or back pain. Denies vomiting but does report nausea which began today. Patient does report a few bouts of diarrhea in the last 2 days with no associated blood. Denies abdominal pain. On exam patient is noted to have pharyngeal erythema associated with cervical lymphadenopathy. Clear breath sounds. Abdominal exam today is benign. Strep, flu, mono test ordered. Chest x-ray ordered given blood-tinged sputum described. Patient strep is ultimately positive. Negative influenza and mono testing. Chest x-ray does reveal mild right basilar airspace opacity likely representing atelectasis and/or pneumonia per V rad. This was discussed with the patient. Given patient's positive strep finding as well as a question of pneumonia we will cover patient with Augmentin. Patient agrees with plan of care. The patient was stable and requested discharge. Prior to discharge, my usual and customary return precautions were reviewed with the patient - this included follow-up instructions and reasons to return to the Emergency Department if conditions worsens, does not improve as expected, or other new concerns arise. HPI General Date/Time Provider Initiated Documentation: 09/07/19 19:40 . HPI Narrative: 34-year-old gentleman presents for complaints of fever for 2 days. Patient reports nasal congestion, sore throat and cough. Patient reports temperature of 102 today. Mild nausea noted today without active vomiting. Patient does report diarrhea present. No significant headache or joint pain. Patient reports cough was mildly productive today and he did have a single episode when coughing where he produced sputum which was blood tinged. Patient denies active chest or back pain. Patient denies abdominal pain. Patient reports mild wheezing but no associated difficulty breathing or shortness of breath. No voice change or trismus. Denies ear pain Related Data Home Medications Medication Instructions Recorded Confirmed amoxicillin-pot clavulanate 1 tab PO BID #20 tab 09/07/19 [Augmentin] Previous Rx's Medication Instructions Recorded amoxicillin-pot clavulanate 1 tab PO BID #20 tab 09/07/19 [Augmentin] Allergies Allergy/AdvReac Type Severity Reaction Status Date / Time aspirin AdvReac Unverified 09/07/19 19:43 General Stated Complaint: RespSymp FABY: 4 Review of Systems All systems reviewed & are unremarkable except as noted in HPI and below Constitutional Constitutional: Reports chills, Denies fatigue, Reports fever(s) and Denies headache(s) ENT Ears, Nose, Mouth, and Throat: Denies dental pain, Denies otalgia, Denies headache(s), Reports nasal congestion, Denies nasal obstruction, Reports post nasal drip, Denies sinus pain, Denies sinus pressure and Reports sore throat Cardiovascular Cardiovascular: Denies dyspnea on exertion Respiratory Respiratory: Reports cough, Denies pain with cough, Denies dyspnea on exertion and Reports wheezing Gastrointestinal Gastrointestinal: Denies abdominal pain, Reports diarrhea and Reports nausea Genitourinary Genitourinary: Denies dysuria Neurologic Neurologic: Denies headache(s) Endocrine Endocrine: Denies fatigue Allergic/Immunologic Allergic/Immunologic: Reports wheezing [facility] Social History Smoking/Tobacco Use Status: Current every day Tobacco Type: cigarettes Alcohol Intake: never Drug use: Never Substance use type: does not use Do you feel safe at home: Yes Do you feel safe in your relationship?: Yes Exam Narrative Exam Narrative: CONST: Healthy appearing patient, in no acute distress. Well hydrated. Alert and alert. HENMT: Head nomocephalic, normal to inspection. Atraumatic. Hearing grossly normal. External ear canal no erythema or swelling. TM normal bilaterally. Nose normal to inspection. No rhinnorhea. Normal facial exam. Oral mucosa normal. Tounge normal. Dentition normal. Erythema of posterior oropharynx. Uvula midline. EYES: General normal appearance. Alignment normal. Eyelids normal. Conjunctiva normal. Sclera normal. PERRL. NECK: Normal visual inspection. FROM. Bilateral lymphadenopathy. Trachea midline. No Midline tenderness. CHEST: Normal insepection of the chest. RESP: Normal respiratory effort. Speaking full sentences. No cough. No wheezing. No retractions. Clear to auscaltation. Breath sound equal and present bilaterally. CARDIO: No JVD. Normal PMI. Regular Rate. Regular Rhythm. Normal peripheral pulses. GI: Normal inspection of abdomen. No distension. Soft. Nontender. Bowel sounds present in all 4 quadrants. No rebound. No gaurding. Course Vital Signs Vital signs: Vital Signs Temperature 36.5 C 09/07/19 19:40 Pulse 83 09/07/19 19:40 Respiratory Rate 18 09/07/19 19:40 Blood Pressure 138/91 H 09/07/19 19:40 Pulse Oximetry 98 09/07/19 19:40 Temperature 36.5 C 09/07/19 19:40 Temperature Source Tympanic 09/07/19 19:40 Pulse 83 09/07/19 19:40 Respiratory Rate 18 09/07/19 19:40 Respiratory Effort Non-Labored 09/07/19 19:44 Respiratory Depth Normal 09/07/19 19:44 Blood Pressure 138/91 H 09/07/19 19:40 Blood Pressure Position Sitting 09/07/19 19:40 Pulse Oximetry 98 09/07/19 19:40 Oxygen Delivery Method Room Air 09/07/19 19:40 Oxygen Flow Rate 0 09/07/19 19:40 Pain Level 9 09/07/19 19:40
--- NOTE | 2019-09-07 20:10 | DI.RAD_ITS ---
EXAM: XR CHEST 2V PA LATERAL INDICATION: cough, blood tinged, fever. COMPARISON: XR CHEST 2V PA LATERAL from 12/06/2018 TECHNIQUE: 2D digital imaging was performed. FINDINGS: Heart size and pulmonary vasculature are within normal limits. The lungs appear unchanged compared to the prior examination. No focal consolidating infiltrates are present. No effusions or pneumothoraces are identified. The bones are unremarkable. IMPRESSION: No change in appearance of the chest x-ray compared to the prior examination. No acute pulmonary pro cess.
[2019-09-07 20:20] LABS: Mono Screening Negative (Negative)
--- NOTE | 2019-09-07 20:35 | DI.VRAD_ITS ---
PROCEDURE INFORMATION: Exam: XR Chest, 2 Views Exam date and time: 09/07/2019 8:06 PM Clinical history: 34 years old, male; Shortness of breath; Patient HX: SOB, swollen lymph nodes per PT TECHNIQUE: Imaging protocol: XR of the chest Views: 2 views. COMPARISON: CR XR CHEST 2V PA LATERAL 12/06/2018 6:51 PM FINDINGS: Lungs: Mild patchy airspace opacity in the right lower lung likely represent atelectasis and/or pneumonia. Mild peribronchial thickening, likely infectious or inflammatory. Pleural space: No pleural effusion. No pneumothorax. Heart/Mediastinum: No cardiomegaly. Bones/joints: No acute findings. IMPRESSION: Mild right basilar airspace opacity likely representing atelectasis and/or pneumonia. Dictated and Authenticated by: Tess Bermudez MD. Ordering:EDILBERTO Pulido MD
[2019-09-07] MEDS: Amoxicillin 875/Clav. 125 TAB PO (21:15)
== END 2019-09-07 21:15 | disposition home or self-care (01) ==
PROVIDERS: Emergency Provider Physician Assistant; PCP Family Medicine
DX: J18.9 Pneumonia, unspecified organism (principal); J02.0 Streptococcal pharyngitis
CPT/HCPCS: 36415; 87449; 87880; 99283; 71046; 86308

== ENCOUNTER 2019-09-16 16:47 | Emergency (ER) | payer MEDICAID, SELFPAY ==
[2019-09-16 16:52] VITALS: BP 137/82; PULSE 86; RESP 16; TEMP 36.7; O2SAT 100
--- NOTE | 2019-09-16 17:11 | DI.RAD_ITS ---
EXAM: XR CHEST 2V PA LATERAL CLINICAL HISTORY: cough TECHNIQUE: 2D digital imaging was performed. COMPARISON: No exams were available for comparison FINDINGS: The cardiac and mediastinal contours have a normal appearance. The lungs are well inflated and clear . No infiltrate, effusion or pneumothorax is seen. No spine or rib fracture is identified. IMPRESSION: Negative chest x-ray.
--- NOTE | 2019-09-16 17:12 | W.ED.GENAD ---
Discharge Plan Disposition Patient Disposition: HOME Condition: Stable Discharge Details Chief Complaint: RespSymp Clinical Impression: SOB (shortness of breath) Primary Care Provider: George Vigil ED Provider: Ramesh Avalos Home Meds and New Rx's Prescriptions: New prednisone 20 mg tablet 60 mg PO DAILY 4 Days Qty: 12 RF: 0 Continued amoxicillin-pot clavulanate [Augmentin] 875-125 mg tablet 1 tab PO BID Qty: 20 RF: 0 acetaminophen [Tylenol] 325 mg Tablet 975 mg PO ONCE RF: 0 ibuprofen [Advil] 200 mg Tablet 600 mg PO Q6H PRNRF: 0 Discharge Instructions Additional Instructions: use the inhaler 2 puffs every 4 hours as needed start taking the prednisone tomorrow I placed you on our follow up list to get set up with a primary care provider for follow up return to the emergency department if you feel more ill, have worsening difficulty breathing or high fevers return to the emergency department Medical Decision Making 34 yo male who denies chronic medical problems comes in with continued cough and shortness of breath. Was diagnosed with strep throat and pna on 09/07 and is on augmentin for this. Denies any fevers and systemically feels well but still has some shortness of breath and cough. He denies recent travel, does smoke but denies alcohol or drug use. HE is in no distress on exam with no murmurs, does have bilateral apical wheezing on exam otherwise clear lungs. N ojvd calf pain or leg swelling. Suspect this could be pneumonitis, but given continued symptoms will give prednisone and steroids and repeat xray. HE is wells low and perc negative so doubt PE and no chest pain/pressure, jvd or leg edema so feel acs and chf unlikely as well pt remains stable, xray unremarkable and lung sounds have improved. Given stable vital signs and reassuring exam feel he can be d/c'd. Will place on short course of steroids with albuterol inhaler and return precautions given, and will also place on f/u list to get set up with pcp Differential Diagnosis Differential Diagnosis: cap, pneumonitis, rad Medical Records Medical records reviewed: Yes I reviewed the patient's medical records. Imaging Data Radiologic Study: Attestation: I personally reviewed and interpreted this imaging study as follows: Imaging: X-Ray Radiologist's impression: no acute findings HPI General Mode of arrival: ambulatory. Date/Time Provider Initiated Documentation: 09/16/19 17:07. Limitations to Documentation: no limitations. Information obtained by: patient. History of Present Illness 34 year old M presents to the emergency department with the chief complaint of cough, described as moderate, and it has been constant. No relieving factors improve symptom(s), No exacerbating factors reported . Related Data Home Medications Medication Instructions Recorded Confirmed amoxicillin-pot clavulanate 1 tab PO BID #20 tab 09/07/19 09/16/19 [Augmentin] acetaminophen [Tylenol] 975 mg PO ONCE 09/16/19 09/16/19 ibuprofen [Advil] 600 mg PO Q6H PRN 09/16/19 09/16/19 prednisone 60 mg PO DAILY 4 Days #12 tab 09/16/19 Previous Rx's Medication Instructions Recorded amoxicillin-pot clavulanate 1 tab PO BID #20 tab 09/07/19 [Augmentin] prednisone 60 mg PO DAILY 4 Days #12 tab 09/16/19 Allergies Allergy/AdvReac Type Severity Reaction Status Date / Time aspirin AdvReac Unverified 09/16/19 16:56 General Stated Complaint: RespSymp FABY: 3 Review of Systems All systems reviewed & are unremarkable except as noted in HPI and below Constitutional Constitutional: Denies chills, Denies fever(s) and Denies weakness ENT Ears, Nose, Mouth, and Throat: Denies change in voice Gastrointestinal Gastrointestinal: Denies abdominal pain, Denies nausea and Denies vomiting Musculoskeletal Musculoskeletal: Denies joint swelling Neurologic Neurologic: Denies weakness [facility] Social History Smoking/Tobacco Use Status: Current every day Tobacco Type: cigarettes Alcohol Intake: never Drug use: Never Substance use type: does not use Do you feel safe at home: Yes Do you feel safe in your relationship?: Yes Exam Const General: no acute distress Orientation: alert HENMT Head: normal to inspection Ears: external ears normal General nose exam: external nose normal Mouth: moist mucous membranes Eyes General: appearance normal, both eyes and all related structures Neck Neck: normal visual inspection Resp Effort & Inspection: normal respiratory effort and able to speak in complete sentences Cardio Rate: regular rate Skin General skin exam: no rashes or lesions noted Neuro General: alert and oriented x3 Extrem General: normal to inspection Psych Mental Status: mental status grossly normal Course Vital Signs Vital signs: Vital Signs Temperature 36.7 C 09/16/19 16:52 Pulse 86 09/16/19 16:52 Respiratory Rate 16 09/16/19 16:52 Blood Pressure 137/82 09/16/19 16:52 Pulse Oximetry 100 09/16/19 16:52 Temperature 36.7 C 09/16/19 16:52 Temperature Source Temporal Artery Scan 09/16/19 16:52 Pulse 86 09/16/19 16:52 Respiratory Rate 16 09/16/19 16:52 Respiratory Effort 09/16/19 16:59 Respiratory Depth Normal 09/16/19 16:59 Blood Pressure 137/82 09/16/19 16:52 Blood Pressure Position Sitting 09/16/19 16:52 Pulse Oximetry 100 09/16/19 16:52 Oxygen Delivery Method Room Air 09/16/19 16:52 Oxygen Flow Rate 0 09/16/19 16:52 Pain Level 0 09/16/19 16:52
[2019-09-16 17:16] VITALS: RESP 8
[2019-09-16] MEDS: Albuterol/Ipratropium 3 ML UPD VIAL UPD (17:16)
[2019-09-16] MEDS: predniSONE 20 MG TAB 60 MG PO (17:16)
--- NOTE | 2019-09-16 17:51 | DI.VRAD_ITS ---
PROCEDURE INFORMATION: Exam: XR Chest, 2 Views Exam date and time: 09/16/2019 5:39 PM Age: 34 years old Clinical history: Other: Cough TECHNIQUE: Imaging protocol: XR of the chest Views: 2 views. COMPARISON: CR XR CHEST 2V PA LATERAL 09/07/2019 8:04 PM FINDINGS: Lungs: Unremarkable. No consolidation. Pleural space: Unremarkable. No pleural effusion. No pneumothorax. Heart/Mediastinum: Unremarkable. No cardiomegaly. Bones/joints: Unremarkable. IMPRESSION: No acute intrathoracic process or explanation for the patient's cough. Dictated and Authenticated by: Robinson Mora MD. Ordering:JAIME Chandler MD
[2019-09-16] MEDS: Albuterol HFA 8 GM 60 PUFF INH IH (18:16)
[2019-09-16 18:17] VITALS: BP 137/82; PULSE 86; RESP 16; TEMP 36.7; O2SAT 100
[2019-09-16] MEDS: Inhaler, Assist Device 1 EACH MC (18:17)
== END 2019-09-16 18:15 | disposition home or self-care (01) ==
PROVIDERS: Emergency Provider Emergency Medicine; PCP Family Medicine
DX: R06.02 Shortness of breath (principal)
CPT/HCPCS: 94640; 99283; 71046; J7512; J7620

== ENCOUNTER 2020-06-16 19:24 | Emergency (ER) | payer MEDICAID, SELFPAY ==
--- NOTE | 2020-06-16 19:32 | NUR.NOTE ---
Called by access, pt refusing to wear a mask. Out to speak to pt, states he is here for neck pain, states has chronic bronchitis and beginning stages of COPD and masks make him feel claustrophobic. Advised him hospital policy is everyone has to wear a mask. Nursing automobile body repair supervisor called to speak to pt. Pt is speaking in full sentences, ambulating with steady gait and moving all extremities.
[2020-06-16 19:42] VITALS: BP 130/95; PULSE 66; RESP 16; TEMP 36.8; O2SAT 96
--- NOTE | 2020-06-16 19:46 | NUR.NOTE ---
To room 3 after speaking to nursing retail shift supervisor. Pt and daughter agreeable to wearing masks.
--- NOTE | 2020-06-16 20:07 | W.ED.GENAD ---
Discharge Plan Disposition Patient Disposition: HOME Condition: Good Discharge Details Chief Complaint: Cellulitis Clinical Impression: Cellulitis of neck Primary Care Provider: George Vigil ED Provider: Moses Bal Home Meds and New Rx's Prescriptions: New mupirocin 2 % ointment 1 applic TP TID Qty: 15 RF: 0 cephalexin [Keflex] 500 mg capsule 500 mg PO QID 7 Days Qty: 28 RF: 0 Continued acetaminophen [Tylenol] 325 mg Tablet 975 mg PO ONCE RF: 0 ibuprofen [Advil] 200 mg Tablet 600 mg PO Q6H PRNRF: 0 Discontinued amoxicillin-pot clavulanate [Augmentin] 875-125 mg tablet 1 tab PO BID Qty: 20 RF: 0 Discharge Instructions Instructions: Cellulitis (ED) Additional Instructions: At this time there is no evidence of abscess that needs drainage. Please apply the mupirocin ointment 3 times per day, keep the areas covered and bandaged at all times and do not scrape or itch them at all. Do this for the next 3 to 4 days, if you notice improvement when you continue the topical antibiotic until symptom resolution. If you notice no improvement then I would start taking the oral antibiotic Keflex. If you notice that the lesions enlarge in size please contact me here in the emergency department after 8 PM to speak personally with me or you can speak with any physician in the ED at any time if you call at a different time. If you notice any worsening of your symptoms, or any new symptoms such as vomiting, diarrhea, fever, chills, shortness of breath, chest pain, numbness, weakness, or fainting , please return immediately to the emergency department for reevaluation. Please follow up with your primary care provider as soon as possible for reassessment and reevaluation. As always, it was a pleasure participating in your medical care today. Referrals: George Vigil [Primary Care Provider] - Medical Decision Making 34-year-old male with no significant past medical history presents today for evaluation of 2 lesions on his neck. The patient states that over the last 3 weeks he has had small little areas on his neck that he felt started as pimples, and then unfortunately he would scratch them notably regularly and squeeze them, getting out a clear serous colored fluid with occasional small amounts of blood. He denied any purulent material or white material. He denies fevers or chills. He denies any other complaints at this time. 1 is healing, the other 2 are not. He denies any Taoism ethnicity, history of Behcet's syndrome, oral lesions in his mouth, new pets, new detergents, or other lesions on the rest of his body. He has no history of interaction with the medical field in regards to MRSA risk. He denies IV or illicit drug use. He has not been applying anything to the lesions. Physical exam demonstrates 2 lesions on the posterior scalp/neck which appear to be pimples that were subsequently scratched notably. No abscess, fluctuance, or signs of significant cellulitis. With no significant risk factors for MRSA, we will prescribe mupirocin ointment for potential mild topical irritation/cellulitis. I discussed with the patient that if his symptoms do not show any improvement after 4 to 5 days and he can start taking oral Keflex. Discussed red flags which to return. No other concerning red flags at this time. I have extensively reviewed the treatment plan and discharge instructions with the patient. I have addressed all patient concerns at this time. The patient was made aware of what symptoms to monitor for that would warrant a return to the emergency department. Discussed the plan with the patient, they demonstrate verbal understanding and agreement with our assessment and plan at this time. HPI General Date/Time Provider Initiated Documentation: 06/16/20 19:31. HPI Narrative: 34-year-old male with no significant past medical history presents today for evaluation of 2 lesions on his neck. The patient states that over the last 3 weeks he has had small little areas on his neck that he felt started as pimples, and then unfortunately he would scratch them notably regularly and squeeze them, getting out a clear serous colored fluid with occasional small amounts of blood. He denied any purulent material or white material. He denies fevers or chills. He denies any other complaints at this time. 1 is healing, the other 2 are not. He denies any Taoism ethnicity, history of Behcet's syndrome, oral lesions in his mouth, new pets, new detergents, or other lesions on the rest of his body. He has no history of interaction with the medical field in regards to MRSA risk. He denies IV or illicit drug use. He has not been applying anything to the lesions. Related Data Home Medications Medication Instructions Recorded Confirmed acetaminophen [Tylenol] 975 mg PO ONCE 09/16/19 09/16/19 ibuprofen [Advil] 600 mg PO Q6H PRN 09/16/19 09/16/19 cephalexin [Keflex] 500 mg PO QID 7 Days #28 cap 06/16/20 mupirocin 1 applic TP TID #15 gm 06/16/20 Previous Rx's Medication Instructions Recorded cephalexin [Keflex] 500 mg PO QID 7 Days #28 cap 06/16/20 mupirocin 1 applic TP TID #15 gm 06/16/20 Allergies Allergy/AdvReac Type Severity Reaction Status Date / Time aspirin AdvReac Unverified 09/16/19 16:56 General Stated Complaint: Cellulitis FABY: 4 Review of Systems All systems reviewed & are unremarkable except as noted in HPI and below PFSH Social History Smoking/Tobacco Use Status: Current every day Tobacco Type: cigarettes Alcohol Intake: never Drug use: Never Substance use type: does not use Do you feel safe at home: Yes Do you feel safe in your relationship?: Yes Exam Narrative Exam Narrative: 1.Const: Well-nourished, Well-developed, appearing stated age 2.Eyes: PERRL, no conjunctival injection, and symmetrical lids. 3.ENT: Atraumatic external nose and ears. Moist MM. Neck: Symmetric, trachea midline, No thyromegaly. Patient demonstrates good movement of cervical neck. There is no nuchal rigidity, no nuchal tenderness. Patient is able to flex the neck without any difficulty or significant pain. Negative Kernig's and Brudzinski sign. 4.CVS: +S1/S2, No murmurs or gallops. Peripheral pulses 2+ and equal in all extremities. Brisk capillary refill in all extremities. 5.RESP: Unlabored respiratory effort. Clear to auscultation bilaterally. No wheezes rales or rhonchi 6.GI: Soft, Nontender/Nondistended, No hepatosplenomegaly. No guarding or rebound. 7.MSK: Normocephalic/Atraumatic, Extremities w/o deformity or ttp No cyanosis or clubbing, Normal movement of all extremities 8.Skin: Warm, Dry. Patient has 2 pimple-like lesions on his posterior neck which demonstrate notable excoriations from scratching. No fluctuant areas, no evidence of abscess requiring drainage, no evidence of significant erythema or redness. No other swelling or cervical lymphadenopathy. 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 Sensation grossly intact, no focal neurologic deficits. 10.Psych: (AAO) x3. Appropriate mood and affect Course Vital Signs Vital signs: Vital Signs Temperature 36.8 C 06/16/20 19:42 Pulse 66 06/16/20 19:42 Respiratory Rate 16 06/16/20 19:42 Blood Pressure 130/95 H 06/16/20 19:42 Pulse Oximetry 96 06/16/20 19:42 Temperature 36.8 C 06/16/20 19:42 Temperature Source Skin 06/16/20 19:42 Pulse 66 06/16/20 19:42 Respiratory Rate 16 06/16/20 19:42 Respiratory Effort Non-Labored 06/16/20 19:44 Blood Pressure 130/95 H 06/16/20 19:42 Blood Pressure Position Sitting 06/16/20 19:42 Pulse Oximetry 96 06/16/20 19:42 Oxygen Delivery Method Room Air 06/16/20 19:42 Oxygen Flow Rate 0 06/16/20 19:42 Pain Level 7 06/16/20 19:42
== END 2020-06-16 20:20 | disposition home or self-care (01) ==
LOC: ER 20:29
PROVIDERS: Emergency Provider Student in an Organized Health Care Education/Training Program; PCP Family Medicine
DX: L03.221 Cellulitis of neck (principal)
CPT/HCPCS: 99283

== ENCOUNTER 2021-01-13 22:26 | Emergency (ER) | payer MEDICAID, SELFPAY ==
[2021-01-13] VITALS (8 sets, daily range): BP systolic 127–144; BP diastolic 77–81; PULSE 74–93; RESP 14–18; TEMP 36.1; O2SAT 100
--- NOTE | 2021-01-13 22:30 | RT.EKG_ITS ---
APPROVED REPORT Exam: Resting ECG Patient Location: E HR:72 bpm ECG Measurements Heart Rate 72 AXIS MD 162 P 62 QRSd 103 QRS 72 QT 402 T 52 QTc 440 Conclusion Sinus rhythm...normal P axis, V-rate 60- 99 Probable left ventricular hypertrophy...multiple LVH criteria I have reviewed and interpreted ECG and agree with software generated interpretation.
--- NOTE | 2021-01-13 22:38 | ED.GENADUL_ITS ---
Discharge Plan Disposition Patient Disposition: HOME Condition: Stable Discharge Details Clinical Impression: Adverse reaction to antidepressant drug, Chest pain, Shortness of breath, Twitching Primary Care Provider: Leda Briggs ED Provider: Vishal Moses Home Meds and New Rx's Prescriptions: Continued acetaminophen [Tylenol] 325 mg Tablet 975 mg PO ONCE RF: 0 ibuprofen [Advil] 200 mg Tablet 600 mg PO Q6H PRNRF: 0 mupirocin 2 % ointment 1 applic TP TID Qty: 15 RF: 0 Discontinued fluoxetine 10 mg tablet 10 mg PO DAILY RF: 0 Discharge Instructions Additional Instructions: It is quite likely that the symptoms can be attributed to an adverse reaction to the fluoxetine. Please discontinue this medication. Use diphenhydramine 25 mg every 4-6 hours for the next few days. Contact the provider who prescribed the fluoxetine for follow-up and further management. Return to the ED for mental status changes, neurologic changes, fever, difficulty breathing, other concerns. Referrals: Leda Briggs [Primary Care Provider] - Discharge Data Discharge Date/Time-TO BE ENTERED AT DEPARTURE: 01/14/21 03:19 Medical Decision Making <Linda Watson DO - Last Filed: 01/14/21 21:17> 35-year-old male with a history migraine, depression who presents for sudden onset of chest pain, palpitations, shortness of breath, generalized twitching and shaking for the past hour. EKG notes a rate of 72, sinus, no STEMI, nondiagnostic. Vitals within normal limits. Patient is twitching and appears to have rigors but appears nontoxic. His temp is 97. Lungs clear bilaterally. Abdomen soft nontender. Patient notes increased stress recently. Suspect most likely anxiety but also consider PE, ACS, electrolyte abnormality, arrhythmia. Will place an IV, bolus IV fluids, Ativan, and will obtain a CT chest and abdomen/pelvis. Case endorsed to Dr. Moses to follow-up on labs and imaging. Will plan for repeat troponin and EKG. If work-up negative will plan for discharged home with follow-up with PCP. ECG Data Attestation: I personally reviewed and interpreted this ECG (s) as follows: Interpretation: Rate of 72, sinus, no STEMI, nondiagnostic. <Vishal Moses MD - Last Filed: 01/14/21 03:18> Patient signed out to me after presenting with onset of chest pain, shortness of breath, twitching. [place] to likely be anxiety related but full work-up to rule out life threat initiated. Initial laboratory studies are unremarkable other than potassium being slightly low at 3.2. CTA chest abdomen completely normal. On reevaluation patient sleeping but once I woke him up he began having more myoclonic jerking as opposed to what I would describe as twitching. Patient also still reports chest pain and shortness of breath despite receiving Ativan earlier. He has recently been started on fluoxetine. It can cause anxiety and extraparametal symptoms. He denies drug use but urine drug screen pending. Is being held for second troponin and EKG at 3 hours. 03:10 - Patient's repeat EKG and troponin remain normal. Patient continues to have involuntary muscle twitching consistent with myoclonic jerks of the major muscles. Occasionally some stuttering. Nonfocal neurologically. Hemodynamically stable. Ativan did seem to help some but symptoms returning as time goes on. Thinking this may be related to adverse reaction to the fluoxetine that he started about 3 weeks ago and may be related to extraparametal symptoms patient given dose of IV Benadryl. Patient feels that this did help a fair amount and the twitching has decreased. Will therefore discontinue the fluoxetine. Will have patient take 25 mg of diphenhydramine every 4-6 hours for the next couple of days. Contact the provider that started the fluoxetine for follow-up and further management. Return to ED for altered mental status, neurologic change, fever, other concerns. Lab Data Lab results reviewed: Yes I reviewed the patient's lab results. ECG Data Attestation: I personally reviewed and interpreted this ECG (s) as follows: Prior ECG tracings: available for review Interpretation: normal HPI <Linda Watson DO - Last Filed: 01/14/21 21:17> General Mode of arrival: wheelchair . Date/Time Provider Initiated Documentation: 01/13/21 22:27 . Limitations to Documentation: no limitations . Information obtained by: patient . HPI Narrative: Patient is a 35-year-old male with a history of depression, migraines and chronic tobacco smoker who presents to the ED with complaint of chest pain, shortness of breath, palpitations, shaking and twitching that started suddenly 1 hour ago at home. He states he has constant pressure-like substernal chest and epigastric pain. There is no radiation of pain. Patient states he was attempting to fall asleep when the symptoms awoke him suddenly from sleep. Patient states he also feels like he is having racing thoughts of thinking about shapes and lactic lesions but denies any visual or auditory hallucinations. He denies any suicidal homicidal ideations. Patient states he drinks 10 Red Bulls daily which is not unusual for him. He also states he ate a marijuana gummy today at noon but states his mom usual. He denies any other alcohol or drug use. He denies any recent illness, fever, cough, vomiting, diarrhea or urinary symptoms. He also states he started Celexa for depression 3 weeks ago and he is unsure if this is a reaction to that medication. Related Data Home Medications Medication Instructions Recorded Confirmed acetaminophen [Tylenol] 975 mg PO ONCE 09/16/19 01/13/21 ibuprofen [Advil] 600 mg PO Q6H PRN 09/16/19 01/13/21 mupirocin 1 applic TP TID #15 gm 06/16/20 01/13/21 Previous Rx's Medication Instructions Recorded mupirocin 1 applic TP TID #15 gm 06/16/20 Allergies Allergy/AdvReac Type Severity Reaction Status Date / Time aspirin AdvReac Unverified 01/13/21 22:34 General Stated Complaint: GenMedical FABY: 3 Review of Systems <Linda Watson DO - Last Filed: 01/14/21 21:17> All systems reviewed & are unremarkable except as noted in HPI and below Constitutional Constitutional: Reports as per HPI, Denies chills and Denies fever(s) Eyes Eyes: Denies blurry vision ENT Ears, Nose, Mouth, and Throat: Reports dizziness, Denies sore throat and Denies throat swelling Cardiovascular Cardiovascular: Reports chest pain and Reports dyspnea Respiratory Respiratory: Denies cough and Reports dyspnea Gastrointestinal Gastrointestinal: Denies abdominal pain, Denies diarrhea and Denies vomiting Genitourinary Genitourinary: Denies hematuria and Denies dysuria Musculoskeletal Musculoskeletal: Denies back pain and Denies numbness Integumentary/Breasts Skin/Breast: Denies lesions and Denies rash Neurologic Neurologic: Reports dizziness, Denies localized weakness, Denies numbness and Reports other (Generalized twitching and shaking) Allergic/Immunologic Allergic/Immunologic: Denies throat swelling PFSH <Linda Watson DO - Last Filed: 01/14/21 21:17> Medical History (Updated 01/14/21 @ 03:15 by Vishal Moses MD) Acute angle-closure glaucoma Chronic lower back pain History of depression Hx of migraines Muscle spasm Tobacco dependence Surgical History (Updated 01/13/21 @ 23:10 by Linda Watson DO) History of hernia repair History of knee surgery History of surgery on wrist Social History Smoking/Tobacco Use Status: Current every day Tobacco Type: cigarettes Smoking risk assessment performed?: Yes Alcohol Intake: never Drug use: Never Substance use type: does not use Do you feel safe at home: Yes Do you feel safe in your relationship?: Yes Exam <Linda Watson DO - Last Filed: 01/14/21 21:17> Const General: cooperative and other (Teeth chattering & generalized twitching at times, not c/w seizure activity) Orientation: alert, awake and oriented x3 HENMT Head: normal to inspection Ears: hearing grossly normal bilaterally, external ears normal and TM's normal bilaterally General nose exam: external nose normal Face and sinus: normal facial exam Mouth: oral mucosae normal Teeth and gingiva: dentition normal Throat: posterior oropharynx normal Eyes General: appearance normal, both eyes and all related structures Eyelids: eyelids normal EOM: EOM intact bilaterally Neck Neck: normal visual inspection Lymphatic: no lymphadenopathy noted Chest Chest: normal inspection of the chest, normal palpation of entire chest wall and no tenderness Resp Effort & Inspection: normal respiratory effort and able to speak in complete sentences Auscultation: clear to auscultation bilaterally Cardio Rate: regular rate Rhythm: regular rhythm GI Inspection: normal to inspection Palpation: soft, not firm, no guarding, no hepatosplenomegaly, no masses and nontender Auscultation: normal bowel sounds Skin General skin exam: no rashes or lesions noted Neuro General: patient alert and patient awake Cognition: normal cognition Speech: speech normal Gait: normal gait Motor: muscle tone normal throughout Sensory Exam: no sensory deficits noted Extrem General: normal to inspection, full ROM, capillary refill normal and no edema Psych Appearance: grossly normal Mental Status: mental status grossly normal Speech and Movement: speech and movement normal Affect: normal affect Thought Process: normal Course <Linda Watson DO - Last Filed: 01/14/21 21:17> Vital Signs Vital signs: Vital Signs Temperature 97.0 F L 01/13/21 22:31 Pulse 90 01/13/21 22:31 Respiratory Rate 18 01/13/21 22:31 Blood Pressure 144/79 H 01/13/21 22:31 Pulse Oximetry 100 01/13/21 22:31 Temperature 97.0 F L 01/13/21 22:31 Temperature Source Tympanic 01/13/21 22:31 Pulse 90 01/13/21 22:31 Respiratory Rate 18 01/13/21 22:31 Blood Pressure 144/79 H 01/13/21 22:31 Pulse Oximetry 100 01/13/21 22:31 Pain Level 0 01/13/21 22:31 Sign Out <Linda Watson DO - Last Filed: 01/14/21 21:17> Sign Out Data: Sign Out Comment: Follow-up on labs and CT imaging results. Follow-up on repeat troponin and EKG. If work-up negative and patient feels better, will plan for discharged home. Last updated by Linda Watson DO at 01/13/21 23:24
--- NOTE | 2021-01-13 23:00 | RT.EKG_ITS ---
APPROVED REPORT Exam: Resting ECG Patient Location: E HR:67 bpm ECG Measurements Heart Rate 67 AXIS MD 176 P 53 QRSd 98 QRS 64 QT 405 T 44 QTc 427 Conclusion Sinus rhythm...normal P axis, V-rate 60- 99 Normal Electrocardiogram There are no significant changes compared to prior EKG performed on 01/13/2021 at 22:59.
[2021-01-13 23:10] LABS: Abs Immature Grans 0.02 10^3/uL (0.0-0.06); Absolute Basophil Count 0.07 10^3/uL (0.0-0.2); Absolute Eosinophil Count 0.15 10^3/uL (0.0-0.7); Absolute Lymphocyte Count 2.71 10^3/uL (1.2-3.4); Absolute Monocyte Count 0.96 10^3/uL (0.1-0.8); Absolute Neutrophil Count 4.73 10^3/uL (1.2-6.7); Basophils % 0.8; Eosinophils % 1.7; HCT 40.3 % (40.0-50.0); HGB 14.5 g/dL (13.5-17.5); Immature Grans % 0.2; Lymphocytes % 31.4; MCH 31.3 pg (27.0-33.0); MCV 86.9 fL (80-95); MPV 8.9 fL (8.0-11.0); Monocytes % 11.1; Neutrophils % 54.8; Nucleated RBC 0 %; Platelet Count 260 10^3/uL (130-400); RBC 4.64 10^6/uL (4.36-5.78); RDW 11.3 % (11.8-14.1); RDW-SD 36.2 fL; WBC 8.64 10^3/uL (4.4-10.8)
[2021-01-13] MEDS: Normal Saline Flush 10 ML SYR IVP (23:16)
[2021-01-13 23:21] LABS: Lipase 83 U/L (73-393); Magnesium 1.9 mg/dL (1.8-2.4)
[2021-01-13] MEDS: Omnipaque 350 MG/ML 100 ML BTL IJ (23:21)
[2021-01-13] MEDS: Normal Saline - Diluent 50 ML VIAL IV (23:21)
--- NOTE | 2021-01-13 23:22 | DI.CT_ITS ---
EXAM: CT CHEST PE ABD PELVIS W CLINICAL HISTORY: substernal chest pain, epigastric pain. TECHNIQUE: Imaging Protocol: Axial CT angiography was performed with multi-slice acquisition and m ulti-planar and/or 3D reconstructions. CONTRAST MATERIAL: Intravenous: Omnipaque 350 Contrast volume:100 ml Oral: None COMPARISON: CT ABD PELVIS WITH CONTRAST from 12/06/2016 FINDINGS: CHEST: Respiratory motion artifact evident. PULMONARY ARTERIES: There are no intra-arterial filling defects to suggest the presence of acute pulm onary emboli. LUNGS: There is no evidence of pulmonary infarction. There are no pleural effusions. MEDIASTINUM: There is no hilar nor mediastinal adenopathy. Visualized thyroid unremarkable. CARDIAC: Heart size is normal. There is no pericardial effusion. There is no significant shift of t he interventricular septum.Caliber of the thoracic aorta is within normal limits. OSSEOUS: No significant osseous lesions.. ABDOMEN: There is no ascites. LIVER: There are no focal hepatic lesions nor dilatation of intrahepatic ducts. GALLBLADDER/BILIARY: No obvious gallbladder pathology. CBD is not dilated. PANCREAS: No evidence of pancreatic mass nor dilatation of the pancreatic duct. SPLEEN: Spleen is not enlarged. There are no intrasplenic lesions. Splenic and portal veins are aranda nt. ADRENALS: There are no significant adrenal masses. KIDNEYS:No cysts evident. No calculi nor hydronephrosis. No solid renal masses. ABDOMINAL AORTA: Abdominal aorta is not enlarged. LYMPH NODES: There is no retroperitoneal or para-aortic adenopathy. ABDOMINAL WALL/GI: No evidence of significant anterior abdominal wall hernia. No bowel obstruction. PELVIS: LYMPH NODES: There is no intrapelvic nor inguinal adenopathy. GI: No evidence of appendicitis.No evidence of sigmoid diverticulitis. URINARY BLADDER: No calculi nor masses evident REPRODUCTIVE: OSSEOUS: There is a unilateral pars interarticularis defect at L5 left side. Sclerosis is seen in th e right pars at this level. There is no significant slippage of L5 upon S1. No foraminal stenosis. IMPRESSION: 1. No evidence of acute pulmonary emboli nor pulmonary infarction. 2. There are no pleural effusions. 3. No obvious acute findings in the abdomen and pelvis. 4. Left-sided pars defect at L5. No listhesis RADIATION DOSE DELIVERED: 914.16mGy.cm Total DLP DATA REPOSITORY: All CT scans at this facility are submitted to the National Radiology Data Registry (NRDR) Dose Index Registry (DIR) with the [employer] (A[employer]). RADIATION OPTIMIZATION: All CT scans at this facility use at least one of these dose optimization te chniques: automated exposure control; mA and/or kV adjustment per patient size (includes targeted exa ms where dose is matched to clinical indication); or iterative reconstruction.
[2021-01-13 23:23] LABS: INR 1.1 (0.9-1.1); Prothrombin Time 10.8 sec (9.3-11.0)
[2021-01-13 23:27] LABS: ALT 32 U/L (16-63); AST 26 U/L (15-37); Albumin 4.2 g/dL (3.4-5.0); Alkaline Phosphatase 76 U/L (46-116); Anion Gap 10.9 mmol/L (3-11); BUN 14 mg/dL (7-18); Bilirubin, Total 0.7 mg/dL (0.2-1.0); CO2 27.1 mmol/L (21.0-32.0); CREATININE 1.1 mg/dL (0.70-1.30); Calcium 9.3 mg/dL (8.5-10.1); Chloride 102 mmol/L (98-107); Glucose 144 mg/dL (74-106); Potassium 3.2 mmol/L (3.5-5.1); Sodium 140 mmol/L (136-145); Total Protein 7.2 g/dL (6.4-8.2)
[2021-01-13 23:28] LABS: Troponin I < 0.05 ng/mL (<0.06)
[2021-01-13] MEDS: LORazepam 2 MG/ML VIAL 1 MG IVP (23:31)
[2021-01-13] MEDS: Normal Saline 1,000 ML 1000 ML IV (23:31)
--- NOTE | 2021-01-14 00:09 | DI.VRAD_ITS ---
PROCEDURE INFORMATION: Exam: CT Angiography Chest With Contrast Exam date and time: 01/13/2021 11:02 PM Age: 35 years old Clinical indication: Sternal or substernal pain; Abdominal pain; Patient HX: Substernal chest pain, epigastric pain, ? pe, effusion; Additional info: Sudden onset uncontrollable twitching TECHNIQUE: Imaging protocol: Computed tomographic angiography of the chest with contrast. 3D rendering (Not supervised by radiologist): MIP and/or 3D reconstructed images were created by the technologist. Radiation optimization: All CT scans at this facility use at least one of these dose optimization techniques: automated exposure control; mA and/or kV adjustment per patient size (includes targeted exams where dose is matched to clinical indication); or iterative reconstruction. Contrast material: [id number]; Contrast volume: 100 ml; Contrast route: INTRAVENOUS (IV); COMPARISON: CR XR CHEST 2V PA LATERAL 09/16/2019 5:38 PM FINDINGS: Pulmonary arteries: No pulmonary artery filling defects. Aorta: Unremarkable. No aortic aneurysm. No aortic dissection. Lungs: Unremarkable. No consolidation. No masses. Pleural spaces: Unremarkable. No pneumothorax. No pleural effusion. Heart: Unremarkable. No cardiomegaly. No pericardial effusion. Lymph nodes: Unremarkable. No enlarged lymph nodes. Bones/joints: Unremarkable. No acute fracture. Soft tissues: Unremarkable. IMPRESSION: No acute findings. PROCEDURE INFORMATION: Exam: CT Angiography Abdomen With Contrast Exam date and time: 01/13/2021 11:02 PM Age: 35 years old Clinical indication: Sternal or substernal pain; Abdominal pain; Patient HX: Substernal chest pain, epigastric pain, ? pe, effusion; Additional info: Sudden onset uncontrollable twitching TECHNIQUE: Imaging protocol: Computed tomographic angiography images of the abdomen with intravenous contrast material. 3D rendering (Not supervised by radiologist): MIP and/or 3D reconstructed images were created by the technologist. Radiation optimization: All CT scans at this facility use at least one of these dose optimization techniques: automated exposure control; mA and/or kV adjustment per patient size (includes targeted exams where dose is matched to clinical indication); or iterative reconstruction. Contrast material: [id number]; Contrast volume: 100 ml; Contrast route: INTRAVENOUS (IV); COMPARISON: CR XR CHEST 2V PA LATERAL 09/16/2019 5:38 PM FINDINGS: Aorta: No aortic aneurysm. No aortic dissection. Celiac trunk and mesenteric arteries: No occlusion or significant stenosis. Renal arteries: No occlusion or significant stenosis. Liver: Normal. No mass. Gallbladder and bile ducts: Normal. No calcified stones. No ductal dilation. Pancreas: Normal. No ductal dilation. Spleen: Normal. No splenomegaly. Adrenals: Normal. No mass. Kidneys and ureters: Normal. No hydronephrosis. Stomach and bowel: No dilated loops of small bowel or colonic dilatation. Appendix: Normal appendix. Lymph nodes: Unremarkable. No enlarged lymph nodes. Intraperitoneal space: No free intraperitoneal gas. No ascites. Bones/joints: Unremarkable. No acute fracture. No dislocation. Soft tissues: Unremarkable. IMPRESSION: No acute findings. Dictated and Authenticated by: Aurelio Abraham MD. Ordering:EULALIA Mckeon MD
[2021-01-14 00:20] VITALS: O2SAT 97
[2021-01-14 00:21] VITALS: BP 114/67; PULSE 81; O2SAT 96
[2021-01-14] MEDS: Potassium Chloride 20 MEQ TABCR 40 MEQ PO (00:23)
[2021-01-14 00:30] VITALS: O2SAT 98
[2021-01-14 01:00] LABS: *AMPHETAMINES SCREEN URINE Negative (Negative); *BARBITURATES SCREEN URINE Negative (Negative); *BENZODIAZEPINES SCREEN URINE Negative (Negative); Cannabinoids THC POSITIVE (Negative); Cocaine Screen,Urine Negative (Negative); METHADONE URINE SCREEN Negative (Negative); OPIATES URINE SCREEN Negative (Negative)
[2021-01-14 01:02] LABS: Tricyclic Antidepressants Negative (Negative)
[2021-01-14 02:19] LABS: Troponin I < 0.05 ng/mL (<0.06)
[2021-01-14] MEDS: diphenhydrAMINE 50 MG/ML VIAL 25 MG IVP (02:50)
[2021-01-14 03:11] VITALS: BP 109/58; PULSE 51; RESP 16; O2SAT 98
== END 2021-01-14 03:19 | disposition home or self-care (01) ==
PROVIDERS: Physician Assistant; Emergency Provider Emergency Medicine; PCP Nurse Practitioner Family
DX: R06.02 Shortness of breath (principal); R07.89 Other chest pain; R25.3 Fasciculation; T43.225A Adverse effect of selective serotonin reuptake inhibitors, initial encounter; E87.6 Hypokalemia
CPT/HCPCS: 36415; 71275; 74177; 80053; 80307; 83690; 93005; 96361; 96374; 96375; 99285; 83735; 84484; 85025; 85610; 85730; 93010; J1200; J2060; J3490

== ENCOUNTER 2021-04-13 18:06 | Emergency (ER) | payer MEDICAID, SELFPAY ==
[2021-04-13 18:15] VITALS: BP 138/78; PULSE 75; RESP 18; TEMP 36.7; O2SAT 98
--- NOTE | 2021-04-13 18:24 | W.ED.GENAD ---
Discharge Plan Disposition Patient Disposition: HOME Condition: Good Discharge Details Clinical Impression: Finger laceration Primary Care Provider: Leda Briggs ED Provider: Cate Restrepo Discharge Instructions Instructions: Finger Laceration (ED) Additional Instructions: Keep wound clean, dry, covered. Monitor for signs infection including redness, warmth, drainage, increased pain, fever/chills. If you develop any of the symptoms or other new/worsening symptoms please seek care urgently once again. Otherwise, please return in 10 to 12 days for suture removal. Please keep bulky dressing on for the next 24 hours. After that time, you may remove and cover with a Band-Aid. Please apply splint over this and keep it in place for at least the next 5 days. Referrals: Leda Briggs [Primary Care Provider] - Discharge Data Discharge Date/Time-TO BE ENTERED AT DEPARTURE: 04/13/21 19:35 Medical Decision Making Patient is a pleasant 35-year-old [id number] male presenting today with chief complaint of laceration to the right middle finger. Patient reports a prior to arrival he was working on tires when he slipped and cut his finger. Tetanus is up-to-date. Denies numbness or tingling. No other injury the time of the incident. On exam, patient has a 3 cm laceration only 2 of which are into the subcutaneous tissue. However, in the webspace there is another small 0.5 cm area of deeper laceration. Patient is neurovascularly intact. Ligamentously intact. Brisk capillary refill. Patient has history/benefits as well as procedural steps associated with closure. He was understanding and wishes to proceed. Plase see procedure note. Patient tolerated this well. Wound was copiously irrigated, explored to base in a bloodless field with no FB or debris noted. Wound was dressed with bulky dressing. Discussed wound care in depth. Will send home with splint to place on finger after the current bulky dressing has been removed. Return precautions discussed, in particular, signs of infection. He will return in 10 days for suture removal. All of his questions and concerns were addressed, he is in agreement with this plan. HPI General Mode of arrival: ambulatory. Date/Time Provider Initiated Documentation: 04/13/21 18:24. Limitations to Documentation: no limitations. Information obtained by: patient and RN notes reviewed. History of Present Illness 35 year old M presents to the emergency department with the chief complaint of right middle finger laceration, described as severe, with intensity rated at 9. Quality is described as aching, and is localized to the right and upper extremity. Patient reports no radiation. Patient started experiencing this minute(s) and it has been constant. Immobilization improves symptom(s), Movement worsens symptoms . Patient notes no other symptoms.. Patient did receive the following treatments prior to arrival, none Related Data Allergies Allergy/AdvReac Type Severity Reaction Status Date / Time aspirin AdvReac Unverified 04/13/21 18:19 General Stated Complaint: Laceration FABY: 4 Review of Systems Constitutional Constitutional: Reports as per HPI, Denies chills and Denies fever(s) Musculoskeletal Musculoskeletal: Reports as per HPI Integumentary/Breasts Skin/Breast: Reports as per HPI Neurologic Neurologic: Reports as per HPI, Denies sensory deficit and Denies paresthesias [facility] Medical History Acute angle-closure glaucoma Chronic lower back pain History of depression Hx of migraines Migraine headache without aura Muscle spasm Tobacco dependence Surgical History History of hernia repair History of knee surgery History of surgery on wrist Social History Smoking/Tobacco Use Status: Current every day Tobacco Type: cigarettes Smoking risk assessment performed?: Yes Alcohol Intake: never Drug use: Never Substance use type: does not use Household members: spouse Housing: house Number of Children: 3 Pets and animals: Yes Pets and animals: cat(s), dog(s) and bird(s) What is your relationship status?: Panel score (0-1 are the most socially isolated patients): 1 What type of physical activity do you participate in: walking Seatbelt use: always Do you feel safe at home: Yes Do you feel safe in your relationship?: Yes Exam Const General: cooperative, healthy appearing, comfortable, no acute distress and well developed Nutritional Appearance: average body habitus and well nourished Orientation: alert and awake Resp Effort & Inspection: normal respiratory effort, able to speak in complete sentences and no respiratory distress Cardio Rate: regular rate Rhythm: regular rhythm Skin Trauma: laceration Neuro General: patient alert and patient awake Cognition: normal cognition Speech: speech normal Gait: normal gait Sensory Exam: no sensory deficits noted Extrem Hand/finger images: 1. laceration. Into subQ tissue along ulnar side about 1cm. Along radial side, at the web space, there is another focal area off of the laceration that is a hole 5mm in diameter. Sensation intact. Capillary refill intact. Ligamentously intact. No deep structure involvement. No FB or debris noted Psych Appearance: grossly normal and well kempt Mental Status: mental status grossly normal Speech and Movement: speech and movement normal Course Vital Signs Vital signs: Vital Signs Temperature 36.7 C 04/13/21 18:15 Pulse 75 04/13/21 18:15 Respiratory Rate 18 04/13/21 18:15 Blood Pressure 138/78 04/13/21 18:15 Pulse Oximetry 98 04/13/21 18:15 Temperature 36.7 C 04/13/21 18:15 Temperature Source Tympanic 04/13/21 18:15 Pulse 75 04/13/21 18:15 Respiratory Rate 18 04/13/21 18:15 Respiratory Effort Non-Labored 04/13/21 18:18 Blood Pressure 138/78 04/13/21 18:15 Blood Pressure Position Sitting 04/13/21 18:15 Pulse Oximetry 98 04/13/21 18:15 Oxygen Delivery Method Room Air 04/13/21 18:15 Oxygen Flow Rate 0 04/13/21 18:15 Pain Level 9 04/13/21 18:15 Procedures Laceration Laceration 1: Site: hand Side (If applicable): right Size (cm): 2.5 Description: linear Depth: simple, single layer Local Anesthetic: Lidocaine 1% Amount of anesthesia used (mL): 5 Pre-repair: wound explored, irrigated extensively and deep structures intact Skin layer closed with: nylon Size (cm): 6-0 Number of sutures: 3 Technique: simple, interrupted
[2021-04-13] MEDS: Lidocaine 1% Pres-Free 5 ML VIAL (18:35)
== END 2021-04-13 19:35 | disposition home or self-care (01) ==
PROVIDERS: Emergency Provider Physician Assistant; PCP Nurse Practitioner Family
DX: S61.212A Laceration without foreign body of right middle finger without damage to nail, initial encounter (principal); W26.9XXA Contact with unspecified sharp object(s), initial encounter
CPT/HCPCS: 12001

== ENCOUNTER 2021-05-31 20:55 | Emergency (ER) | payer MEDICAID, SELFPAY ==
[2021-05-31 21:06] VITALS: BP 141/94; PULSE 84; RESP 17; TEMP 37; O2SAT 99
--- NOTE | 2021-05-31 21:15 | DI.CT_ITS ---
Exam(s) CT ABDOMEN PELVIS W EXAM: CT ABDOMEN PELVIS W CLINICAL HISTORY: right sided abdomen pain. TECHNIQUE: Imaging Protocol: Axial computed tomography images with coronal and sagittal reformatted images were created and reviewed CONTRAST MATERIAL: Intravenous: Omnipaque 100cc Oral: None COMPARISON: CT CT CHEST PE ABD PELVIS W from 01/13/2021 FINDINGS: VISUALIZED LUNG BASES: No nodules nor pleural effusions evident. ABDOMEN: There is no ascites. LIVER: There are no focal hepatic lesions evident . GALLBLADDER/BILIARY: No obvious gallbladder pathology. CBD is not dilated. PANCREAS: No evidence of pancreatic mass nor dilatation of the pancreatic duct. SPLEEN: Spleen is not enlarged. No obvious intrasplenic lesions. Splenic and portal veins are paten t. ADRENALS: There are no significant adrenal masses. KIDNEYS:No cysts evident. No solid renal masses. No calculi nor hydronephrosis.. ABDOMINAL AORTA: Abdominal aorta is not enlarged. LYMPH NODES:There is no retroperitineal nor paraaortic adenopathy. ABDOMINAL WALL: No evidence of significant anterior abdominal wall hernia. PELVIS: GI: Appendix diameter is 7 millimeters and there is very mild streaking in the mesoappendix. There i s no appendicular lith.There appears to be slight thickening of the terminal ileum and mild dilatatio n of terminal ileum just proximal to this. No evidence of bowel obstruction. No free air. No absce ss. LYMPH NODES: There is no intrapelvic nor inguinal adenopathy. REPRODUCTIVE: Prostate not enlarged. Seminal vesicles unremarkable. URINARY BLADDER: No calculi nor obvious masses evident OSSEOUS: No significant osseous lesions. IMPRESSION: 1. Appendix diameter is 6-7 millimeters, upper normal. There is very mild stranding in the fat aroun d the appendix. Cannot exclude very early appendicitis although or. 2. There is slight circumferential thickening of the terminal ileum loop. This, however, is difficul t to evaluate accurately on this study which was performed without oral contrast. Correlation with a ny symptomatology of inflammatory bowel disease such as Crohn's disease recommended. 3. There is no bowel obstruction. No free air. No abscess. 4. RADIATION DOSE DELIVERED: 567.72mGy.cm Total DLP DATA REPOSITORY: All CT scans at this facility are submitted to the National Radiology Data Registry (NRDR) Dose Index Registry (DIR) with the [employer] (A[employer]). RADIATION OPTIMIZATION: All CT scans at this facility use at least one of these dose optimization te chniques: automated exposure control; mA and/or kV adjustment per patient size (includes targeted exa ms where dose is matched to clinical indication); or iterative reconstruction.
--- NOTE | 2021-05-31 21:16 | ED.GENADUL_ITS ---
Discharge Plan Disposition Patient Disposition: AGAINST MEDICAL ADVICE Condition: Stable Discharge Details Clinical Impression: Abdominal pain Primary Care Provider: Leda Briggs ED Provider: Ramesh Avalos Home Meds and New Rx's Prescriptions: New amoxicillin-pot clavulanate [Augmentin] 875-125 mg tablet 1 tab PO BID Qty: 14 RF: 0 No Action penicillin V potassium 500 mg tablet 500 mg PO BID RF: 0 Discharge Instructions Additional Instructions: Your cat scan showed you likely have early appendicitis and you chose to leave against my medical advise If you change your mind, have severe worsening pain, fevers or persistent nausea and vomit return to the emergency department. If you choose not to return to the emergency department follow up with your primary care provider as soon as possible Medical Decision Making 35 yo male was eating dinner tonight when he started to have right sided abdomen pain. Denies vomit, fevers, chills, denies alcohol or drug use. He states he gets this pain intermittently in the past, not often however. He verbalizes the pain is in the right upper abdomen but on exam seems most tender in the right lower abdomen, mild tenderness in the right upper abdomen, negative gottlieb's sign, no other pain elsewhere. No testicle tenderness or swelling, no findings on exam to suggest torsion. Concern for possible appendicitis, will obtain labs and ct to further evaluate. Patient remains stable, pain has improved. His CT shows possible early retrocecal appendicitis. I discussed the findings with the patient and my recommendation of surgical consult and likely admission and possible surgery. He is caox4 and clinically not under the influence of alcohol or drugs and has the capacity to make his own decisions. He is declining my recommendation for care and is choosing to leave against my medical advise. I discussed risks of leaving including worsening infection, abscess, perforation leading to peritonitis and possible meterman permanent disability and . The patient is still declining to stay and wants to leave against my medical advise. Given he doesn't want to stay I will try treating him with antibiotics. I did advise he can return to the emergency department at any time if he changes his mind. Differential Diagnosis Differential Diagnosis: appendicitis, cholecystitis, obstruction Imaging Data Radiologic Study: Attestation: I personally reviewed and interpreted this imaging study as follows: Imaging: CT Scan Radiologist's impression: IMPRESSION: 1. Mild fat stranding around the retrocecal appendix. Early/mild acute appendicitis considered. 2. Abnormal terminal ileum also noted. Correlate for any concern of Crohn's disease. Lab Data Lab results reviewed: Yes I reviewed the patient's lab results. HPI General Mode of arrival: ambulatory . Date/Time Provider Initiated Documentation: 05/31/21 21:00 . Limitations to Documentation: no limitations . Information obtained by: patient . History of Present Illness 35 year old M presents to the emergency department with the chief complaint of right sided abdomen pain, described as moderate and severe, with intensity rated at 8. Quality is described as sharp, and is localized to the abdomen. Patient reports no radiation. Patient started experiencing this hour(s) (2) and it has been intermittent. No relieving factors improve symptom(s), No exacerbating factors reported . Patient notes no other symptoms.. Patient did receive the following treatments prior to arrival, none Related Data Home Medications Medication Instructions Recorded Confirmed amoxicillin-pot clavulanate 1 tab PO BID #14 tab 05/31/21 [Augmentin] penicillin V potassium 500 mg PO BID 05/31/21 05/31/21 Previous Rx's Medication Instructions Recorded amoxicillin-pot clavulanate 1 tab PO BID #14 tab 05/31/21 [Augmentin] Allergies Allergy/AdvReac Type Severity Reaction Status Date / Time aspirin AdvReac Intermediate Unverified 05/31/21 21:09 General Stated Complaint: Abd Prob FABY: 3 Review of Systems All systems reviewed & are unremarkable except as noted in HPI and below Constitutional Constitutional: Denies chills, Denies fever(s) and Denies weakness Cardiovascular Cardiovascular: Denies chest pain and Denies dyspnea Respiratory Respiratory: Denies cough and Denies dyspnea Gastrointestinal Gastrointestinal: Denies vomiting Musculoskeletal Musculoskeletal: Denies joint swelling Neurologic Neurologic: Denies weakness [facility] Medical History Acute angle-closure glaucoma Chronic lower back pain History of depression Hx of migraines Migraine headache without aura Muscle spasm Tobacco dependence Surgical History History of hernia repair History of knee surgery History of surgery on wrist Social History Smoking/Tobacco Use Status: Current every day Tobacco Type: cigarettes Smoking risk assessment performed?: Yes Alcohol Intake: never Drug use: Never Substance use type: does not use Household members: spouse Housing: house Number of Children: 3 Pets and animals: Yes Pets and animals: cat(s), dog(s) and bird(s) What is your relationship status?: Panel score (0-1 are the most socially isolated patients): 1 What type of physical activity do you participate in: walking Seatbelt use: always Do you feel safe at home: Yes Do you feel safe in your relationship?: Yes Exam Const General: no acute distress Orientation: alert HENMT Head: normal to inspection Ears: external ears normal General nose exam: external nose normal Mouth: moist mucous membranes Eyes General: appearance normal, both eyes and all related structures Neck Neck: normal visual inspection Resp Effort & Inspection: normal respiratory effort and able to speak in complete sentences Cardio Rate: regular rate GI Palpation: soft and tender Skin General skin exam: no rashes or lesions noted Neuro General: patient alert and patient oriented x3 Extrem General: normal to inspection Psych Mental Status: mental status grossly normal Course Vital Signs Vital signs: Vital Signs Temperature 37.0 C 05/31/21 21:06 Pulse 84 05/31/21 21:06 Respiratory Rate 17 05/31/21 21:06 Blood Pressure 141/94 H 05/31/21 21:06 Pulse Oximetry 99 05/31/21 21:06 Temperature 37.0 C 05/31/21 21:06 Temperature Source Temporal Artery Scan 05/31/21 21:06 Pulse 84 05/31/21 21:06 Respiratory Rate 17 05/31/21 21:06 Respiratory Effort Non-Labored 05/31/21 21:11 Blood Pressure 141/94 H 05/31/21 21:06 Blood Pressure Position Sitting 05/31/21 21:06 Pulse Oximetry 99 05/31/21 21:06 Oxygen Delivery Method Room Air 05/31/21 21:06 Oxygen Flow Rate 0 05/31/21 21:06 Pain Level 9 05/31/21 21:06
[2021-05-31] MEDS: MORPHine 4 MG/ML SYR IVP ×2 (21:25→22:10)
[2021-05-31] MEDS: Normal Saline 1,000 ML 1000 ML IV (21:25)
[2021-05-31 21:28] LABS: Abs Immature Grans 0.02 10^3/uL (0.0-0.06); Absolute Basophil Count 0.08 10^3/uL (0.0-0.2); Absolute Eosinophil Count 0.29 10^3/uL (0.0-0.7); Absolute Lymphocyte Count 2.98 10^3/uL (1.2-3.4); Absolute Monocyte Count 1.11 10^3/uL (0.1-0.8); Absolute Neutrophil Count 6.31 10^3/uL (1.2-6.7); Basophils % 0.7; Eosinophils % 2.7; HCT 44.6 % (40.0-50.0); HGB 15.4 g/dL (13.5-17.5); Immature Grans % 0.2; Lymphocytes % 27.6; MCH 30.8 pg (27.0-33.0); MCHC 34.5 % (32.0-36.0); MCV 89.2 fL (80-95); MPV 8.9 fL (8.0-11.0); Monocytes % 10.3; Neutrophils % 58.5; Nucleated RBC 0 %; Platelet Count 282 10^3/uL (130-400); RDW 11.8 % (11.8-14.1); RDW-SD 37.8 fL; WBC 10.79 10^3/uL (4.4-10.8)
[2021-05-31 21:42] LABS: ALT 31 U/L (16-63); AST 19 U/L (15-37); Albumin 4.4 g/dL (3.4-5.0); Alkaline Phosphatase 76 U/L (46-116); Anion Gap 7.6 mmol/L (3-11); BUN 11 mg/dL (7-18); Bilirubin, Direct 0.2 mg/dL (0.0-0.2); Bilirubin, Total 0.7 mg/dL (0.2-1.0); CO2 30.4 mmol/L (21.0-32.0); CREATININE 1.1 mg/dL (0.70-1.30); Calcium 9.1 mg/dL (8.5-10.1); Chloride 104 mmol/L (98-107); Glucose 98 mg/dL (74-106); Lipase 87 U/L (73-393); Potassium 3.5 mmol/L (3.5-5.1); Sodium 142 mmol/L (136-145); Total Protein 7.6 g/dL (6.4-8.2)
[2021-05-31 21:44] LABS: Bilirubin, Total 0.7 mg/dL (0.2-1.0)
[2021-05-31] MEDS: Omnipaque 350 MG/ML 100 ML BTL IJ (21:52)
[2021-05-31] MEDS: Normal Saline Flush 10 ML SYR IVP (21:53)
[2021-05-31] MEDS: Normal Saline - Diluent 50 ML VIAL IV (21:53)
[2021-05-31 22:08] LABS: Bilirubin Negative (Negative); Blood Negative (Negative); Clarity Clear (Clear); Glucose Negative (Negative); Ketones Negative (Negative); Leukocyte Esterase Negative (Negative); Nitrite Negative (Negative); Specific Gravity 1.015 (1.005-1.025); Urobilinogen 0.2 EU/dL (Up TO 0.2)
[2021-05-31 22:13] VITALS: BP 125/82; PULSE 72; RESP 17; TEMP 37; O2SAT 99
--- NOTE | 2021-05-31 22:25 | DI.VRAD_ITS ---
PROCEDURE INFORMATION: Exam: CT Abdomen And Pelvis With Contrast Exam date and time: 05/31/2021 9:16 PM Age: 35 years old Clinical indication: Localized; Patient HX: Right sided abdominal pain TECHNIQUE: Imaging protocol: Computed tomography of the abdomen and pelvis with contrast. Radiation optimization: All CT scans at this facility use at least one of these dose optimization techniques: automated exposure control; mA and/or kV adjustment per patient size (includes targeted exams where dose is matched to clinical indication); or iterative reconstruction. Contrast material: OMNIPAQUE 350; Contrast volume: 100 ml; Contrast route: INTRAVENOUS (IV); COMPARISON: CT CHEST PE ABD PELVIS W 01/13/2021 11:16 PM FINDINGS: Lungs: Lung bases are clear. Liver: Normal. No mass. Gallbladder and bile ducts: Normal. No calcified stones. No ductal dilation. Pancreas: Normal. No ductal dilation. Spleen: Normal. No splenomegaly. Adrenal glands: Normal. No mass. Kidneys and ureters: Normal. No hydronephrosis. No stones observed. Stomach and bowel: Stomach is mildly distended. Small bowel is not dilated, although moderate fluid is present in the small bowel. There is mild wall thickening and moderate mucosal enhancement and mucosal thickening at the terminal ileum, distal 5 cm. There are no inflammatory changes around the colon. Sigmoid colon is collapsed. Appendix: Mild fat stranding noted around the retrocecal appendix. The appendix measures 7 mm diameter. Intraperitoneal space: Negative for free fluid or free air. Negative for abscess. Vasculature: Unremarkable. No abdominal aortic aneurysm. Lymph nodes: Unremarkable. No enlarged lymph nodes. Urinary bladder: Unremarkable as visualized. Reproductive: Unremarkable as visualized. Bones/joints: Negative for compression fracture. 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 Negative for anterior or posterior translation of vertebral bodies. Soft tissues: Unremarkable. IMPRESSION: 1. Mild fat stranding around the retrocecal appendix. Early/mild acute appendicitis considered. 2. Abnormal terminal ileum also noted. Correlate for any concern of Crohn's disease. Dictated and Authenticated by: Ramesh Rob MD. Ordering:JAIME Chandler MD
--- NOTE | 2021-05-31 22:55 | NUR.NOTE ---
report given to venita huddleston
[2021-05-31] MEDS: Amoxicillin 875/Clav. 125 TAB PO (23:13)
[2021-05-31 23:16] VITALS: BP 131/80; PULSE 59; RESP 16; TEMP 36.7; O2SAT 97
== END 2021-05-31 23:27 | disposition left against medical advice (07) ==
PROVIDERS: Emergency Provider Emergency Medicine; PCP Nurse Practitioner Family
DX: R10.11 Right upper quadrant pain (principal); R10.31 Right lower quadrant pain; Z53.29 Procedure and treatment not carried out because of patient's decision for other reasons
CPT/HCPCS: 80053; 83690; 96361; 96374; 96376; 99285; 74177; 81003; 82247; 82248; 83735; 85025; 99284; J2270; J3490

== ENCOUNTER 2021-06-01 18:50 | Observation (INO) | payer MEDICAID, SELFPAY ==
[2021-06-01] VITALS (12 sets, daily range): BP systolic 106–132; BP diastolic 60–80; PULSE 59–77; RESP 16–28; TEMP 36.1–37.1; O2SAT 96–100; BMI 22.6
--- NOTE | 2021-06-01 19:18 | ED.GENADUL_ITS ---
Discharge Plan Disposition Patient Disposition: [facility] INPATIENT Condition: Serious Discharge Details Clinical Impression: Acute appendicitis Primary Care Provider: Leda Briggs ED Provider: Blayne Villalba Home Meds and New Rx's Prescriptions: No Action penicillin V potassium 500 mg tablet 500 mg PO BID RF: 0 amoxicillin-pot clavulanate [Augmentin] 875-125 mg tablet 1 tab PO BID Qty: 14 RF: 0 Medical Decision Making 35-year-old male with right lower quadrant abdominal pain since yesterday, CT abdomen pelvis showed acute appendicitis, left AMA and now returns with persistent pain. I consulted general surgery on-call, Dr. Greenberg, she has evaluated the patient and plans to take him to the operating room. Potassium 3.3. I have ordered potassium chloride 20 mEq IV. Patient was given Tylenol 1000 mg IV for pain and Ativan 0.5 mg for anxiety. Lab Data Lab results reviewed: Yes I reviewed the patient's lab results. HPI General Mode of arrival: ambulatory . Date/Time Provider Initiated Documentation: 06/01/21 19:00 . Limitations to Documentation: no limitations . Information obtained by: patient . HPI Narrative: 35-year-old male seen here yesterday for right lower quadrant abdominal pain, had CT of the abdomen pelvis that was interpreted as acute appendicitis, left AMA returns with persistent right lower quadrant abdominal pain. Pain is moderate, improved from yesterday but persistent. No modifiers. He has associated nausea and anorexia today but did have some tacos just prior to coming into the emergency department. He denies associated fever. Related Data Home Medications Medication Instructions Recorded Confirmed amoxicillin-pot clavulanate 1 tab PO BID #14 tab 05/31/21 06/01/21 [Augmentin] penicillin V potassium 500 mg PO BID 05/31/21 05/31/21 Previous Rx's Medication Instructions Recorded amoxicillin-pot clavulanate 1 tab PO BID #14 tab 05/31/21 [Augmentin] Allergies Allergy/AdvReac Type Severity Reaction Status Date / Time aspirin AdvReac Intermediate Unverified 05/31/21 21:09 General Stated Complaint: Abd Prob FABY: 3 Review of Systems All systems reviewed & are unremarkable except as noted in HPI and below Constitutional Constitutional: Denies fever(s) Gastrointestinal Gastrointestinal: Reports as per HPI and Reports abdominal pain [facility] Medical History Acute angle-closure glaucoma Chronic lower back pain History of depression Hx of migraines Migraine headache without aura Muscle spasm Tobacco dependence Surgical History History of hernia repair History of knee surgery History of surgery on wrist Social History Smoking/Tobacco Use Status: Current every day Tobacco Type: cigarettes Smoking risk assessment performed?: Yes Alcohol Intake: never Drug use: Never Substance use type: does not use Household members: spouse Housing: house Number of Children: 3 Pets and animals: Yes Pets and animals: cat(s), dog(s) and bird(s) What is your relationship status?: Panel score (0-1 are the most socially isolated patients): 1 What type of physical activity do you participate in: walking Seatbelt use: always Do you feel safe at home: Yes Do you feel safe in your relationship?: Yes Exam Const General: cooperative and no acute distress HENMT Mouth: moist mucous membranes Eyes Conjunctivae: normal conjunctivae Sclera: normal sclerae Neck Neck: trachea midline and supple Resp Auscultation: clear to auscultation bilaterally, no rales, no rhonchi and no wheezes Cardio Rate: regular rate and not tachycardic Rhythm: regular rhythm GI Inspection: non-distended Palpation: soft, not firm, no guarding, no masses, not rigid and tender in the RLQ Auscultation: normal bowel sounds Skin General skin exam: no rashes or lesions noted Neuro General: patient alert, patient awake, patient oriented x3 and tone normal Extrem General: no edema Psych Appearance: grossly normal Mental Status: mental status grossly normal Mood: other (Mildly anxious) Affect: other Course Vital Signs Vital signs: Vital Signs Temperature 37.1 C 06/01/21 18:56 Pulse 76 06/01/21 18:56 Respiratory Rate 18 06/01/21 18:56 Blood Pressure 132/80 06/01/21 18:56 Pulse Oximetry 98 06/01/21 18:56 Temperature 37.1 C 06/01/21 18:56 Temperature Source Temporal Artery Scan 06/01/21 18:56 Pulse 76 06/01/21 18:56 Respiratory Rate 18 06/01/21 18:56 Respiratory Effort Non-Labored 06/01/21 18:58 Blood Pressure 132/80 06/01/21 18:56 Pulse Oximetry 98 06/01/21 18:56 Oxygen Delivery Method Room Air 06/01/21 18:56 Oxygen Flow Rate 0 06/01/21 18:56 Pain Level 6 06/01/21 19:02
[2021-06-01] MEDS: Lactated Ringers 1,000 ML 125 ML IV (19:32)
[2021-06-01] MEDS: ACETAMINOPHEN 1,000 MG/100 ML BTL 400 MG IVPB (19:32)
[2021-06-01] MEDS: LORazepam 2 MG/ML VIAL 0.5 MG IVP (19:33)
[2021-06-01 19:40] LABS: Abs Immature Grans 0.02 10^3/uL (0.0-0.06); Absolute Basophil Count 0.07 10^3/uL (0.0-0.2); Absolute Eosinophil Count 0.21 10^3/uL (0.0-0.7); Absolute Lymphocyte Count 2.26 10^3/uL (1.2-3.4); Absolute Monocyte Count 0.69 10^3/uL (0.1-0.8); Eosinophils % 2.9; HCT 41.6 % (40.0-50.0); HGB 14.6 g/dL (13.5-17.5); Immature Grans % 0.3; Lymphocytes % 31.2; MCH 31.5 pg (27.0-33.0); MCHC 35.1 % (32.0-36.0); MCV 89.8 fL (80-95); MPV 9.1 fL (8.0-11.0); Monocytes % 9.5; Neutrophils % 55.1; Nucleated RBC 0 %; Platelet Count 270 10^3/uL (130-400); RBC 4.63 10^6/uL (4.36-5.78); RDW 11.9 % (11.8-14.1); WBC 7.25 10^3/uL (4.4-10.8)
[2021-06-01 19:41] LABS: ALT 26 U/L (16-63); AST 13 U/L (15-37); Alkaline Phosphatase 69 U/L (46-116); Anion Gap 6.9 mmol/L (3-11); BUN 11 mg/dL (7-18); Bilirubin, Total 0.4 mg/dL (0.2-1.0); CO2 28.1 mmol/L (21.0-32.0); Chloride 108 mmol/L (98-107); Glucose 141 mg/dL (74-106); Lipase 84 U/L (73-393); Potassium 3.3 mmol/L (3.5-5.1); Sodium 143 mmol/L (136-145)
[2021-06-01 19:45] LABS: Absolute Neutrophil Count 3.99 10^3/uL (1.2-6.7)
[2021-06-01 19:45] LABS: Source Nasal/Nares
--- NOTE | 2021-06-01 19:59 | W.PREOPHP ---
Date of service: 06/01/21 Time of Service: 19:59 Assessment and Plan Assessment and plan (1) Acute appendicitis: Status: Acute Assessment and plan: Mr. Reagan is a 35 year old male with early acute appendicitis. WBC count is normal and he has no fevers. We discussed laparoscopic appendectomy vs antibiotic treatment. Discussed reisk and benefits of both. After answering his questions he would like to proceed with Surgery Risks, benefits and complications have been reviewed. Complications include but are not limited to bleeding, infection, injury to adjacent bowel, abscess formation, staple line leak, inability to do the procedure laparoscopically and adverse reaction to the medications. Questions were entertained and answered to their satisfaction and they wished to proceed. No guarantees were given or implied. Laparoscopic Appendectomy Qualifiers: Acute appendicitis type: with localized peritonitis Appendicitis gangrene presence: without gangrene Appendicitis perforation presence: without perforation Appendicitis abscess presence: without abscess Qualified Code(s): K35.30 - Acute appendicitis with localized peritonitis, without perforation or gangrene History of Present Illness History of Present Illness Chief Complaint: RLQ pain Consults Consult date: 06/01/21 Requesting physician: Blayne Villalba Narrative: Mr. Reagan is a pleasant 35 year old male seen in the ER last night for abdominal pain. Labs were unremarkable but his CT scan did show mild fat stranding around his retrocecal appendix. He left AMA as he had to work today. he returns this evening with continued RLQ pain. He denies N/V. He last ate around [address] scan from yesterday reviewed. Exam(s) a CT:CT abdomen & pelvis w Exam(s) CT ABDOMEN PELVIS W EXAM: CT ABDOMEN PELVIS W CLINICAL HISTORY: right sided abdomen pain. TECHNIQUE: Imaging Protocol: Axial computed tomography images with coronal and sagittal reformatted images were created and reviewed CONTRAST MATERIAL: Intravenous: Omnipaque 100cc Oral: None COMPARISON: CT CT CHEST PE ABD PELVIS W from 01/13/2021 FINDINGS: VISUALIZED LUNG BASES: No nodules nor pleural effusions evident. ABDOMEN: There is no ascites. LIVER: There are no focal hepatic lesions evident . GALLBLADDER/BILIARY: No obvious gallbladder pathology. CBD is not dilated. PANCREAS: No evidence of pancreatic mass nor dilatation of the pancreatic duct. SPLEEN: Spleen is not enlarged. No obvious intrasplenic lesions. Splenic and portal veins are patent. ADRENALS: There are no significant adrenal masses. KIDNEYS:No cysts evident. No solid renal masses. No calculi nor hydronephrosis.. ABDOMINAL AORTA: Abdominal aorta is not enlarged. LYMPH NODES:There is no retroperitineal nor paraaortic adenopathy. ABDOMINAL WALL: No evidence of significant anterior abdominal wall hernia. PELVIS: GI: Appendix diameter is 7 millimeters and there is very mild streaking in the mesoappendix. There is no appendicular lith.There appears to be slight thickening of the terminal ileum and mild dilatation of terminal ileum just proximal to this. No evidence of bowel obstruction. No free air. No abscess. LYMPH NODES: There is no intrapelvic nor inguinal adenopathy. REPRODUCTIVE: Prostate not enlarged. Seminal vesicles unremarkable. URINARY BLADDER: No calculi nor obvious masses evident OSSEOUS: No significant osseous lesions. IMPRESSION: 1. Appendix diameter is 6-7 millimeters, upper normal. There is very mild stranding in the fat around the appendix. Cannot exclude very early appendicitis although or. 2. There is slight circumferential thickening of the terminal ileum loop. This, however, is difficult to evaluate accurately on this study which was performed without oral contrast. Correlation with any symptomatology of inflammatory bowel disease such as Crohn's disease recommended. 3. There is no bowel obstruction. No free air. No abscess. Todays labs show a normal WBC count again. He is afebrile Review of Systems Constitutional Constitutional: Denies fever(s) and Denies headache(s) Eyes Eyes: Denies change in vision ENT Ears, Nose, Mouth, and Throat: Denies headache(s) Cardiovascular Cardiovascular: Denies chest pain, Denies irregular heart rhythm, Denies palpitations and Denies dyspnea Respiratory Respiratory: Denies cough and Denies dyspnea Gastrointestinal Gastrointestinal: Reports as per HPI Genitourinary Genitourinary: Reports system reviewed and no additional complaints, except as documented Musculoskeletal Musculoskeletal: Reports system reviewed and no additional complaints, except as documented Integumentary/Breasts Skin/Breast: Reports system reviewed and no additional complaints, except as documented Neurologic Neurologic: Reports system reviewed and no additional complaints, except as documented and Denies headache(s) Psychiatric Psychiatric: Reports system reviewed and no additional complaints, except as documented Endocrine Endocrine: Reports system reviewed and no additional complaints, except as documented and Denies palpitations Hematologic/Lymphatic Hematologic/Lymphatic: Reports system reviewed and no additional complaints, except as documented [facility] Medical History Acute angle-closure glaucoma Chronic lower back pain History of depression Hx of migraines Migraine headache without aura Muscle spasm Tobacco dependence Surgical History History of hernia repair History of knee surgery History of surgery on wrist Social History Smoking/Tobacco Use Status: Current every day Tobacco Type: cigarettes Smoking risk assessment performed?: Yes Alcohol Intake: never Drug use: Never Substance use type: does not use Household members: spouse Housing: house Number of Children: 3 Pets and animals: Yes Pets and animals: cat(s), dog(s) and bird(s) What is your relationship status?: Panel score (0-1 are the most socially isolated patients): 1 What type of physical activity do you participate in: walking Seatbelt use: always Do you feel safe at home: Yes Do you feel safe in your relationship?: Yes Meds Allergies and Home Medications Allergies Allergy/AdvReac Type Severity Reaction Status Date / Time aspirin AdvReac Intermediate Unverified 05/31/21 21:09 Home Medications Medication Instructions Recorded Confirmed Type amoxicillin-pot clavulanate 1 tab PO BID #14 tab 05/31/21 06/01/21 Rx [Augmentin] penicillin V potassium 500 mg PO BID 05/31/21 05/31/21 History Exam Const General: cooperative, comfortable and no acute distress Orientation: alert and oriented x3 HENMT Head: normocephalic and atraumatic Resp Effort & Inspection: normal respiratory effort Auscultation: clear to auscultation bilaterally Cardio Rate: regular rate Rhythm: regular rhythm GI Inspection: normal to inspection Palpation: soft, no hepatosplenomegaly and tender in the RLQ (+ guarding); with no rebound tenderness Auscultation: normal bowel sounds Results Labs Result diagrams: 06/01/21 19:10 06/01/21 19:10 Labs: Laboratory Results - last 24 hr 06/01/21 06/01/21 06/01/21 19:10 19:10 19:29 WBC 7.25 D RBC 4.63 Hgb 14.6 Hct 41.6 MCV 89.8 MCH 31.5 MCHC 35.1 RDW 11.9 Plt Count 270 MPV 9.1 Immature Gran % 0.3 Neutrophils % 55.1 Lymphocytes % 31.2 Monocytes % 9.5 Eosinophils % 2.9 Basophils % 1.0 Nucleated RBC % 0 Absolute Neutrophils 3.99 Absolute Lymphocytes 2.26 Absolute Monocytes 0.69 Absolute Eosinophils 0.21 Absolute Basophils 0.07 Sodium 143 Potassium 3.3 L Chloride 108 H Carbon Dioxide 28.1 Anion Gap 6.9 BUN 11 Creatinine 1.0 Estimated GFR/1.73 m2 >= 60.00 Glucose 141 H Calcium 9.0 Total Bilirubin 0.4 AST 13 L ALT 26 Alkaline Phosphatase 69 Total Protein 7.0 Albumin 4.0 Lipase 84 COVID-19 Source Nasal/Nares Last Vital Signs Temp 98.8 F 06/01/21 18:56 Pulse 75 06/01/21 19:53 Resp 16 06/01/21 19:53 BP 110/64 06/01/21 19:53 Pulse Ox 97 06/01/21 19:53
--- NOTE | 2021-06-01 20:31 | W.ANESPRE ---
General Info Date of Service Date Performed: 06/01/21 Height: 5 ft 6 in Weight: 63.503 kg Body Mass Index (BMI): 22.6 Surgical Procedure: Operation Date: 06/01/21 20:05 Proposed Procedures Side Surgeon p Appendectomy Laparoscopic Vianey Greenberg MD Actual Procedures Side Surgeon p Appendectomy Laparoscopic Not Applicable Vianey Greenberg MD Pre-Op Diagnosis Post-Op Diagnosis Acute appendicitis Meds Allergies and Home Medications Allergies Allergy/AdvReac Type Severity Reaction Status Date / Time aspirin AdvReac Intermediate Unverified 05/31/21 21:09 Home Medication Medication Instructions Recorded amoxicillin-pot clavulanate 1 tab PO BID #14 tab 05/31/21 [Augmentin] penicillin V potassium 500 mg PO BID 05/31/21 Current Visit Medications: Current Medications Generic Name Dose Route Start Last Admin Trade Name Freq PRN Reason Stop Dose Admin Acetaminophen 650 mg 06/01/21 20:08 Acetaminophen 325 Mg Tab PO Q6H PRN PRN Pain Al Hydrox/Mg Hydrox/Simethicone 30 ml 06/01/21 20:08 Mylanta Suspension 30 Ml Cup PO Q4H PRN PRN Sodium Chloride 500 mls @ 0 mls/hr 06/01/21 19:16 Saline 500ml Bag IV PRN PRN As Directed Ringer's Solution 1,000 mls @ 125 mls/hr 06/01/21 19:30 06/01/21 19:32 IV 125 mls/hr INFUSION VALERY Administration Piperacillin Sod/Tazobactam 100 mls @ 200 mls/hr 06/01/21 20:08 Sod 4.5 gm/ Sodium Chloride IVPB 06/01/21 20:37 NOW ONE Protocol Sodium Chloride 500 mls @ 0 mls/hr 06/01/21 20:08 Saline 500ml Bag IV PRN PRN As Directed Ringer's Solution 1,000 mls @ 75 mls/hr 06/01/21 20:15 IV INFUSION VALERY Potassium Chloride 20 meq in 100 mls @ 50 mls/hr 06/01/21 20:11 IVPB 06/01/21 22:10 NOW ONE IV Miscellaneous Supplies 1 each 06/01/21 19:30 Iv Access IV DIRECTED VALERY IV Miscellaneous Supplies 1 each 06/01/21 20:15 Iv Access IV DIRECTED VALERY Ketorolac Tromethamine 30 mg 06/01/21 20:15 Ketorolac 30 Mg/Ml Vial IVP 06/06/21 20:14 Q6H VALERY Ondansetron HCl 0 mg 06/01/21 20:08 Ondansetron 4 Mg/2 Ml Vial IVP Q6H PRN PRN Oxycodone HCl 5 mg 06/01/21 20:08 Oxycodone 5 Mg Tab PO Q6H PRN PRN Simethicone 80 mg 06/01/21 20:08 Simethicone 80 Mg Chew PO Q4H PRN PRN Sodium Chloride 0 ml 06/01/21 19:16 Normal Saline Flush 10 Ml Syr IVP PRN PRN Sodium Chloride 0 ml 06/01/21 20:08 Normal Saline Flush 10 Ml Syr IVP PRN PRN PFSH Active Problems Active Problems: Problem Status Onset Code Acute appendicitis K35.80 Acute appendicitis K35.80 Finger laceration S61.219A Abdominal pain R10.9 Migraine headache without aura G43.009 Adverse reaction to antidepressant drug T43.205A Chest pain R07.9 Shortness of breath R06.02 Twitching R25.3 Medical History Medical History Acute angle-closure glaucoma Chronic lower back pain History of depression Hx of migraines Migraine headache without aura Muscle spasm Tobacco dependence Surgical History Surgical History History of hernia repair History of knee surgery History of surgery on wrist Tobacco Smoking/Tobacco Use Status: Current every day Tobacco Type: cigarettes Alcohol Alcohol Intake: never Substance Use Substance use: Never Substance use type: does not use Vital Signs and Lab Results Vital Signs Most Recent Vital Signs in EMR: Most Recent Vital Signs Temp Pulse Resp BP Pulse Ox 37.0 C 70 16 118/61 98 06/01/21 20:11 06/01/21 20:11 06/01/21 20:11 06/01/21 20:11 06/01/21 20:11 Lab Results Result Diagrams: 06/01/21 19:10 06/01/21 19:10 Blood Type / Crossmatch: No Data to Display Complete Blood Count: White Blood Count 7.25 10^3/uL (4.4-10.8) 06/01/21 19:10 06/01/21 Red Blood Count 4.63 10^6/uL (4.36-5.78) 06/01/21 19:10 06/01/21 Hemoglobin 14.6 g/dL (13.5-17.5) 06/01/21 19:10 06/01/21 Hematocrit 41.6 % (40.0-50.0) 06/01/21 19:10 06/01/21 Platelet Count 270 10^3/uL (130-400) 06/01/21 19:10 06/01/21 Complete Metabolic Panel: Sodium Level 143 mmol/L (136-145) 06/01/21 19:10 06/01/21 Potassium Level 3.3 mmol/L (3.5-5.1) L 06/01/21 19:10 06/01/21 Chloride Level 108 mmol/L (98-107) H 06/01/21 19:10 06/01/21 Carbon Dioxide Level 28.1 mmol/L (21.0-32.0) 06/01/21 19:10 06/01/21 Blood Urea Nitrogen 11 mg/dL (7-18) 06/01/21 19:10 06/01/21 Creatinine 1.0 mg/dL (0.70-1.30) 06/01/21 19:10 06/01/21 Estimated GFR/1.73 m2 >= 60.00 (mL/min/1.73m2) 06/01/21 19:10 06/01/21 Magnesium Level 2.0 mg/dL (1.8-2.4) 05/31/21 21:18 05/31/21 Calcium Level 9.0 mg/dL (8.5-10.1) 06/01/21 19:10 06/01/21 Albumin 4.0 g/dL (3.4-5.0) 06/01/21 19:10 06/01/21 Glucose Level 141 mg/dL (74-106) H 06/01/21 19:10 06/01/21 Liver Function Panel: Alanine Aminotransferase (ALT/SGPT) 26 U/L (16-63) 06/01/21 19:10 06/01/21 Aspartate Amino Transf (AST/SGOT) 13 U/L (15-37) L 06/01/21 19:10 06/01/21 Coagulation Panel: No Data to Display Cardiac Panel: No Data to Display Arterial Blood Gas: No Data to Display Venous Blood Gas: No Data to Display Pancreas Panel: Lipase 84 U/L (73-393) 06/01/21 19:10 06/01/21 Thyroid Panel: No Data to Display Infectious Disease: Coronavirus (COVID-19)(PCR) Pending 06/01/21 19:29 06/01/21 Coronavirus 2019 Source Nasal/Nares 06/01/21 19:29 06/01/21 Blood Cultures: No Data to Display Toxicology Panel: No Data to Display Anesthesia Assessment and Plan Anesthesia History Personal History: No History of Anesthesia Complications Family History: No Family History of Anesthesia Complications Exercise Tolerance Exercise Tolerance: Metabolic Equivalents<4 Pertinent Negatives Pertinent Negatives: No Symptoms of GERD, No Major Cardiovascular Symptoms or Complaints, No History of CVA/TIA and Other (Early stages of copd, [place].) Cardiac & Pulmonary Exam Cardiac Exam: Normal S1/S2 Heart Sounds Pulmonary Exam: Clear Bilateral Breath Sounds Airway Exam Known Difficult Airway: No Mallampati Class: 1 Mouth Opening: Normal (> 3cm) Thyromental Distance: Greater than 3 cm Neck Range of Motion: Full ROM Neck Circumference: Normal Teeth Condition: Normal Dentition ASA Classification ASA Score: ASA 2 Emergency Case?: Yes NPO Status NPO Status: NPO Clear Liquids>2 hours (Solid food 3 hrs ago) Anesthesia Plan Resuscitation Status: Full Code Anesthesia Technique: General Anesthesia Airway Planned: Endotracheal Tube Monitors Used: Standard Monitors
[2021-06-01 20:35] LABS: COVID-19 PCR Negative (Negative)
[2021-06-01] MEDS: PIPERACILLIN/TAZO 4.5 GM in Normal Saline 100 ML IVPB (21:21)
--- NOTE | 2021-06-01 21:49 | APP_PTH ---
PATIENT: Kang Reagan III LOC: U#:[id number] AGE/SX: 35/M ROOM: [facility] Ann214 RE06/01/[address]: Vianey Greenberg MD : 1985 BED: A DIS: 06/02/2021 SPEC #: [id number] RECD: 06/02/21 17:01 STATUS: ADRIANO REQ #: [id number] ALEYDA: 06/01/21 21:[address]: Vianey Greenberg DEPT: Surgical Specimen RECD BY: Bethany Rutherford ENTERED: 06/02/21 17:01 SP TYPE: Appendix OTHR DR: Leda Briggs Tissues: 1 - APPENDIX NOT INCIDENTAL Procedures: GROSS AND MICRO LEVEL 3 Comments: [id number]
[2021-06-01] MEDS: Bupivacaine LIPOSOME/PF 133 MG/10 ML VIAL IJ (21:58)
[2021-06-01] MEDS: Bupivacaine 0.25% Pres-Free 10 ML VIAL (21:58)
--- NOTE | 2021-06-01 22:22 | ROE_ITS ---
Date of service: 06/01/21 Time of Service: 22:22 Operative Note Operative Note DATE OF PROCEDURE: 06/01/21 PRE-OP DIAGNOSIS: Acute Appendicitis POST-OP DIAGNOSIS: same PROCEDURE: Laparoscopic Appendectomy SURGEON: Vianey Greenberg EPIC RADIANT ANALYST: Lucy Cornelius ANESTHESIA TYPE: Local By Surgeon and General LMA/ETT Refer to Anesthesia Record ESTIMATED BLOOD LOSS: 50 PATHOLOGY: other (Appendix) COMPLICATIONS: None Patient was transported to: PACU Patient's condition: stable Indications: Mr. Reagan is a 35-year-old gentleman who was initially seen in the emergency department last night with right lower quadrant pain. His labs were unremarkable. He did have a CT scan which was suggestive of very early appendicitis. The patient did leave AMA and then returned today with continued right lower quadrant pain. Labs were repeated and were still normal. Examination revealed tenderness in the right lower quadrant with guarding. There was no rebound tenderness. Risks benefits and complications of laparoscopic appendectomy were reviewed with him and he wished to proceed. No guarantees were given or implied. Findings: Mildly dilated appendix. No erythema was noted. Procedure Description: After informed consent was obtained the patient was taken to the operating room placed in the supine position, SCDs were applied as well as monitors. A timeout was done. The patient was then placed under general anesthesia and intubated without any difficulty. Next a Montes catheter was placed in a standard surgical fashion. At this point the abdomen was prepped and draped in a sterile surgical fashion with chlorhexidine. A second timeout was done and the patient's name, date of , operation to be performed, DVT prophylaxis, antibiotic given, and fire risk was assessed. Exparel was mixed 50-50 with 0.25% Bupivocaine. The mixture was injected into the dermis just below the umbilicus. A small 5 mm incision was made with an 11 blade. The skin was grasped with penetrating towel clamps on either side of the incision and then using a Visiport a 5 mm port was placed under direct visualization into the abdomen. The abdomen was insufflated. Local anesthetic was then injected just above the pubic symphysis just to the right of midline. A small 5 mm incision was made with an 11 blade and another 5 mm port was placed under direct visualization into the abdomen. The local anesthetic was then injected in the left lower quadrant area and a 12 mm incision was made with an 11 blade. A 12 mm port was then placed under direct visualization. The patient's bed was then turned to the left and head down allowing me to sweep of the small bowel out of the right lower quadrant. The terminal ileum was adhered to the peritoneum. It was gently dissected away so I could visualize the cecum. The cecum was gently grasped and the appendix was identified. The appendix looked mildly inflammed. No purulent fluid was noted. The appendix was grasped at the neck and pulled up slightly allowing me to visualize the junction with the cecum. Using the laparoscopic LigaSure the mesoappendix was slowely transected. Using a laparoscopic straight stapler the appendix was then transected at the junction with the cecum. The appendix was placed into an Endo Catch bag and removed through the 12 mm port site. The port was placed back into the abdomen and the staple line was identified. No bleeding was noted. The transected mesentery was identified and no bleeding was noted. The 2 5 mm ports were then removed under direct visualization and no bleeding was noted from the fascia. The insufflation was stopped and the 12 mm port was removed. The 12 mm port site fascia was closed with a 0 Vicryl [id number] suture. The skin was then closed with 4-0 Vicryl. The skin was cleaned and dried and skin affix was applied. The patient was woken up, extubated and taken back to recovery room in stable condition. There were no immediate complications. Sponge, instrument and needle counts were correct at the end of the case x2.
--- NOTE | 2021-06-01 22:51 | W.ANESPOSTOP ---
Postoperative Evaluation Date, Time and Location Date Performed: 06/01/21 Time Performed: 22:53 Patient Location: PACU Vital Signs Most Recent Imported Vital Signs: Most Recent Vital Signs Temp Pulse Resp BP Pulse Ox 36.2 C L 73 23 120/67 95 06/01/21 22:49 06/01/21 22:49 06/01/21 22:49 06/01/21 22:49 06/01/21 22:49 Pain Score Most Recent Pain Score: Most Recent Pain Score Pain Level 0 06/01/21 22:49 Assessment Mental Status: Arousable with meaningful communication Airway and Respiratory Function: Patent airway with normal (patient baseline) respiratory exam Cardiovascular Function: Hemodynamically Stable Hydration Status: Adequately Hydrated Nausea & Vomiting: No Nausea or Vomiting Pain: Pt. Denies Any Pain Peripheral Nerve Block: Patient did not receive a nerve block
[2021-06-01] MEDS: oxyCODONE 5 MG TAB PO (23:56)
[2021-06-01] MEDS: Lactated Ringers 1,000 ML 75 ML IV (23:57)
[2021-06-02 00:30] VITALS: BP 136/77; PULSE 71; RESP 19; TEMP 36.4; O2SAT 96
[2021-06-02] MEDS: POTASSIUM CHLORIDE 20 MEQ/100 ML BAG 50 MEQ IVPB (02:23)
[2021-06-02 03:55] VITALS: BP 117/71; PULSE 77; RESP 18; TEMP 36.2; O2SAT 95
[2021-06-02] MEDS: Ketorolac 30 MG/ML VIAL IVP ×2 (05:46→14:28)
[2021-06-02 08:10] VITALS: BP 116/71; PULSE 55; RESP 16; TEMP 36.3; O2SAT 97
--- NOTE | 2021-06-02 09:15 | W.PM.PROGNOT ---
Documented by User: TATIANA Araya 06/02/21 09:18 Date of Service Date of service: 06/02/21 Time of Service: 09:15 Assessment and Plan Assessment and plan (1) Acute appendicitis: Status: Acute Assessment and plan: POD #1 s/p Laproscopic Appendectomy. Tolerating regular diet Pain is well controlled. Encouraged use of soft tissue massage, heat and ambulation to help reduce his right shoulder discomfort. Ambulating in the hallway No fevers or chills over night. If he continues to do well d/c home later today. Qualifiers: Acute appendicitis type: with localized peritonitis Appendicitis abscess presence: without abscess Appendicitis gangrene presence: without gangrene Appendicitis perforation presence: without perforation Qualified Code(s): K35.30 - Acute appendicitis with localized peritonitis, without perforation or gangrene Subjective Subjective Interval history since last seen: Patient reports he has right shoulder pain this morning, he verbalized understanding that this was related to the CO2 from his procedure. He is tolerating a regular diet and states that he has also had a BM. Exam Const General: cooperative, healthy appearing and comfortable Orientation: alert and oriented x3 Resp Effort & Inspection: normal respiratory effort, no audible wheezes and no cough GI Palpation: soft, no guarding and tender in the RLQ Objective Last Vital Signs Temp 36.3 C L 06/02/21 08:10 Pulse 55 L 06/02/21 08:10 Resp 16 06/02/21 08:10 BP 116/71 06/02/21 08:10 Pulse Ox 97 06/02/21 08:10 Laboratory Results - last 24 hr 06/01/21 06/01/21 06/01/21 19:10 19:10 19:29 WBC 7.25 D RBC 4.63 Hgb 14.6 Hct 41.6 MCV 89.8 MCH 31.5 MCHC 35.1 RDW 11.9 Plt Count 270 MPV 9.1 Immature Gran % 0.3 Neutrophils % 55.1 Lymphocytes % 31.2 Monocytes % 9.5 Eosinophils % 2.9 Basophils % 1.0 Nucleated RBC % 0 Absolute Neutrophils 3.99 Absolute Lymphocytes 2.26 Absolute Monocytes 0.69 Absolute Eosinophils 0.21 Absolute Basophils 0.07 Sodium 143 Potassium 3.3 L Chloride 108 H Carbon Dioxide 28.1 Anion Gap 6.9 BUN 11 Creatinine 1.0 Estimated GFR/1.73 m2 >= 60.00 Glucose 141 H Calcium 9.0 Total Bilirubin 0.4 AST 13 L ALT 26 Alkaline Phosphatase 69 Total Protein 7.0 Albumin 4.0 Lipase 84 COVID-19 Source Nasal/Nares SARS-CoV-2 (PCR) Negative Documented by User: Brigette Jovel, 06/02/21 13:58 Assessment and Plan Assessment and plan (1) Acute appendicitis: Status: Acute Assessment and plan: pt seen and examined. agree w/ above. plan d/c home today Discussed with patient diet, pain management, wound care, activities and warning signs. He will follow-up with Dr. Greenberg in 2 weeks. He has a prescription for Ultram. All questions were answered and he is stable for discharge.
--- NOTE | 2021-06-02 09:18 | DSE_ITS ---
Documented by User: TATIANA Araya 06/02/21 09:23 Date of service: 06/02/21 Time of Service: 09:18 DS: Diagnosis Discharge Diagnosis (1) Acute appendicitis: Status: Acute Discharge Plan Disposition Patient Disposition: HOME Condition: Good Discharge Details Reason For Visit: Acute Appendicitis Admit Date/Time: 06/01/21 20:09 Admit Provider: Vianey Greenberg Attending Provider: Vianey Greenberg Primary Care Provider: Leda Briggs Hospital Course Hospital Course: 35 y/o male presented to the ER with complaints of RLQ pain x [address] scan showed acute appendicitis. He under went laparoscopic appendectomy. He is now tolerating a regular diet, ambulating independently and pain is well managed. No fevers or chills over night. Some mild right shoulder discomfort, mostly like secondary to irritation of C02 gas. Mildly relieved with use of hot pack. He will need to follow up in the surgical office in 2 weeks. Home Meds and New Rx's Prescriptions: New tramadol [Ultram] 50 mg tablet 50 mg PO Q6H PRNQty: 10 RF: 0 Continued penicillin V potassium 500 mg tablet 500 mg PO BID RF: 0 amoxicillin-pot clavulanate [Augmentin] 875-125 mg tablet 1 tab PO BID Qty: 14 RF: 0 Discharge Instructions Instructions: Laparoscopic Appendectomy (DC), Laparoscopic Appendectomy (GEN) Additional Instructions: No heavy lifting, pushing or pulling >10# x 2 weeks. No strenuous bending or twisting x 2 weeks. ? MEDICATIONS: Alternate Tylenol 1000mg by mouth every 8 hours and Ibuprofen 600mg every 6 hours. Make sure you take ibuprofen with food and not on an empty stomach. Take the Tylenol and ibuprofen continuously for the first 72hrs- not just when you have pain. Use the tramadol for breakthrough pain. Use ICE! Twenty minutes on, and then off, continuously for the first 72hours. If you are taking narcotic pain medication, follow the instructions on the label and do not drive. Pain medications can make you very constipated. Make sure you are moving your bowels daily. If not, take Miralax, milk of magnesia or magnesium citrate. Anesthesia makes you very constipated. Take a dose of milk of magnesia the morning after surgery. -No driving x5 days or of you are taking pain medications. -Do Not remove the purple skin glue that covers the incision. Will fall off on its own -Follow-up with Yari 06/17 @ 8:30am -regular diet -no straining to move bowels -pain meds are very constipating: if you do not move your bowels daily take a dose of OTC milk of magnesia -It is ok to shower. No bathe, soaking, swimming or hot tubs x 2 wks -Keep wound clean and dry. Wash incision with soap and water daily. Pat dry, don't rub. - You may find that your appetite is smaller. Eat 3-6 small meals throughout the day. It is important to drink lots of water after surgery, 6-10 glasses a day. -We do want you up walking, at least 5-6 times per day. This is very important to prevent pneumonia and blood clots. You can climb stairs, take them slowly. -No lifting over 5 pounds. This is very important to avoid developing a hernia in your incision. -You may find that you are very tired after surgery- this is normal. -please do not smoke for a minimum of 72 hours after surgery. Referrals: Vianey Greenberg MD [ [facility] STAFF PHYSICIAN] - 06/17/21 8:30 am Activity:: Activity as Tolerated Equipment/Supplies:: No Equipment Needed Diet:: Normal Diet Discharge Orders Discharge Orders: Discharge Order (Routine); Ordered 06/02/21 Ordered By: Brigette Jovel DS: Summary Time Spent with Patient providing and/or coordinating discharge services: Less than 30 minutes Status at Discharge Functional status at discharge: independent ambulation Overall status at discharge: patient is back to baseline Mental Status: mental status grossly normal Speech and Movement: speech and movement normal Mood: congruent mood Affect: normal affect Exam Psych Mental Status: mental status grossly normal Speech and Movement: speech and movement normal Mood: congruent mood Affect: normal affect DS: Data Vitals/I&O Vitals and I&O: Vital Signs Temperature 36.3 C L 06/02/21 08:10 Temperature Source Tympanic 06/02/21 08:10 Pulse 55 L 06/02/21 08:10 Pulse Rhythm Regular 06/01/21 23:29 Respiratory Rate 16 06/02/21 08:10 Respiratory Effort Non-Labored 06/01/21 23:29 Respiratory Depth Normal 06/01/21 23:29 Respiratory Pattern Normal 06/01/21 23:29 Blood Pressure 116/71 06/02/21 08:10 Pulse Oximetry 97 06/02/21 08:10 Respiratory End-tidal CO2 39 06/01/21 22:56 Oxygen Delivery Method Room Air 06/02/21 08:10 Oxygen Flow Rate 0 06/02/21 08:10 Pain Level 7 06/02/21 08:10 Intake & Output 06/01/21 06/02/21 06/02/21 18:59 06:59 18:59 Intake Total 1597.5 / 1597.5 Output Total 1400 / 1400 Balance 197.5 / 197.5 Weight 63.503 kg 68.039 kg Intake: IV 1397.5 / 1397.5 Oral 200 / 200 Output: Urine 1400 / 1400 Other: Urine Color Yellow Urine Appearance Clear Urine Odor None Emesis Description None Voiding Methods Urinal Data Completed and Pending Labs on day of discharge: Labs from last 24 hours 06/01/21 06/01/21 06/01/21 19:29 19:10 19:10 WBC 7.25 D RBC 4.63 Hgb 14.6 Hct 41.6 MCV 89.8 MCH 31.5 MCHC 35.1 RDW 11.9 Plt Count 270 MPV 9.1 Immature Gran % 0.3 Neutrophils % 55.1 Lymphocytes % 31.2 Monocytes % 9.5 Eosinophils % 2.9 Basophils % 1.0 Nucleated RBC % 0 Absolute Neutrophils 3.99 Absolute Lymphocytes 2.26 Absolute Monocytes 0.69 Absolute Eosinophils 0.21 Absolute Basophils 0.07 Sodium 143 Potassium 3.3 L Chloride 108 H Carbon Dioxide 28.1 Anion Gap 6.9 BUN 11 Creatinine 1.0 Estimated GFR/1.73 m2 >= 60.00 Glucose 141 H Calcium 9.0 Total Bilirubin 0.4 AST 13 L ALT 26 Alkaline Phosphatase 69 Total Protein 7.0 Albumin 4.0 Lipase 84 COVID-19 Source Nasal/Nares SARS-CoV-2 (PCR) Negative [facility] Medical History Acute angle-closure glaucoma Chronic lower back pain History of depression Hx of migraines Migraine headache without aura Muscle spasm Tobacco dependence Surgical History History of hernia repair History of knee surgery History of surgery on wrist Social History Smoking/Tobacco Use Status: Current every day Tobacco Type: cigarettes Smoking risk assessment performed?: Yes Alcohol Intake: never Drug use: Never Substance use type: does not use Household members: spouse Housing: house Number of Children: 3 Pets and animals: Yes Pets and animals: cat(s), dog(s) and bird(s) What is your relationship status?: Panel score (0-1 are the most socially isolated patients): 1 What type of physical activity do you participate in: walking Seatbelt use: always Do you feel safe at home: Yes Do you feel safe in your relationship?: Yes Documented by User: Brigette Jovel DO 06/02/21 13:56 Discharge Plan Disposition Patient Disposition: HOME Condition: Good Discharge Details Reason For Visit: Acute Appendicitis Admit Date/Time: 06/01/21 20:09 Admit Provider: Vianey Greenberg Attending Provider: Vianey Greenberg Primary Care Provider: [facility] Course Hospital Course: 35 y/o male presented to the ER with complaints of RLQ pain x [address] scan showed acute appendicitis. He under went laparoscopic appendectomy. He is now tolerating a regular diet, ambulating independently and pain is well managed. No fevers or chills over night. Some mild right shoulder discomfort, mostly like secondary to irritation of C02 gas. Mildly relieved with use of hot pack. He will need to follow up in the surgical office in 2 weeks. Home Meds and New Rx's Prescriptions: New tramadol [Ultram] 50 mg tablet 50 mg PO Q6H PRNQty: 10 RF: 0 Continued penicillin V potassium 500 mg tablet 500 mg PO BID RF: 0 amoxicillin-pot clavulanate [Augmentin] 875-125 mg tablet 1 tab PO BID Qty: 14 RF: 0 Discharge Instructions Instructions: Laparoscopic Appendectomy (DC), Laparoscopic Appendectomy (GEN) Additional Instructions: No heavy lifting, pushing or pulling >10# x 2 weeks. No strenuous bending or twisting x 2 weeks. ? MEDICATIONS: Alternate Tylenol 1000mg by mouth every 8 hours and Ibuprofen 600mg every 6 hours. Make sure you take ibuprofen with food and not on an empty stomach. Take the Tylenol and ibuprofen continuously for the first 72hrs- not just when you have pain. Use the tramadol for breakthrough pain. Use ICE! Twenty minutes on, and then off, continuously for the first 72hours. If you are taking narcotic pain medication, follow the instructions on the label and do not drive. Pain medications can make you very constipated. Make sure you are moving your bowels daily. If not, take Miralax, milk of magnesia or magnesium citrate. Anesthesia makes you very constipated. Take a dose of milk of magnesia the morning after surgery. -No driving x5 days or of you are taking pain medications. -Do Not remove the purple skin glue that covers the incision. Will fall off on its own -Follow-up with Yari 06/17 @ 8:30am -regular diet -no straining to move bowels -pain meds are very constipating: if you do not move your bowels daily take a dose of OTC milk of magnesia -It is ok to shower. No bathe, soaking, swimming or hot tubs x 2 wks -Keep wound clean and dry. Wash incision with soap and water daily. Pat dry, don't rub. - You may find that your appetite is smaller. Eat 3-6 small meals throughout the day. It is important to drink lots of water after surgery, 6-10 glasses a day. -We do want you up walking, at least 5-6 times per day. This is very important to prevent pneumonia and blood clots. You can climb stairs, take them slowly. -No lifting over 5 pounds. This is very important to avoid developing a hernia in your incision. -You may find that you are very tired after surgery- this is normal. -please do not smoke for a minimum of 72 hours after surgery. Referrals: Vianey Greenberg MD [ [facility] STAFF PHYSICIAN] - 06/17/21 8:30 am Activity:: Activity as Tolerated Equipment/Supplies:: No Equipment Needed Diet:: Normal Diet Discharge Orders Discharge Orders: Discharge Order (Routine); Ordered 06/02/21 Ordered By: Brigette Jovel [facility] Medical History Acute angle-closure glaucoma Chronic lower back pain History of depression Hx of migraines Migraine headache without aura Muscle spasm Tobacco dependence Surgical History History of hernia repair History of knee surgery History of surgery on wrist Social History Smoking/Tobacco Use Status: Current every day Tobacco Type: cigarettes Smoking risk assessment performed?: Yes Alcohol Intake: never Drug use: Never Substance use type: does not use Household members: spouse Housing: house Number of Children: 3 Pets and animals: Yes Pets and animals: cat(s), dog(s) and bird(s) What is your relationship status?: Panel score (0-1 are the most socially isolated patients): 1 What type of physical activity do you participate in: walking Seatbelt use: always Do you feel safe at home: Yes Do you feel safe in your relationship?: Yes
[2021-06-02 09:45] VITALS: O2SAT 97
[2021-06-02] MEDS: Milk of Magnesia 30 ML CUP PO (14:28)
== END 2021-06-02 14:48 | disposition home or self-care (01) ==
LOC: ER 20:19 → MS 23:18
PROVIDERS: Admitting Provider Surgery; Emergency Provider Student in an Organized Health Care Education/Training Program; PCP Nurse Practitioner Family; Visit Provider Surgery
PROC: 0DTJ4ZZ Resection of Appendix, Percutaneous Endoscopic Approach (ICD-10-PCS; CPT 44970; principal; 2021-06-01 20:05)
DX: K35.30 Acute appendicitis with localized peritonitis, without perforation or gangrene (principal); G89.29 Other chronic pain; M54.5 Low back pain; F17.210 Nicotine dependence, cigarettes, uncomplicated; F32.9 Major depressive disorder, single episode, unspecified; G43.009 Migraine without aura, not intractable, without status migrainosus; Z20.822 Contact with and (suspected) exposure to COVID-19
CPT/HCPCS: 44970; 80053; 83690; 87635; 96374; 96375; 99285; 85025; 88304; G0378; J0131; J1100; J1885; J2001; J2060; J2250; J2405; J2543; J3480

== ENCOUNTER 2021-12-22 17:24 | Emergency (ER) | payer MEDICAID, SELFPAY ==
[2021-12-22 17:31] VITALS: BP 155/78; PULSE 68; RESP 16; TEMP 36.4; O2SAT 100
--- NOTE | 2021-12-22 17:53 | ED.GENADUL_ITS ---
Discharge Plan Disposition Patient Disposition: HOME Condition: Improving Discharge Details Clinical Impression: Paresthesias, Muscle twitching Primary Care Provider: Leda Briggs ED Provider: Linda Watson Home Meds and New Rx's Prescriptions: Continued Ajovy Autoinjector 225 mg/1.5 mL auto-injector 225 mg subcut QMONTH Qty: 1.5 6RF Discharge Instructions Instructions: Paresthesia (ED), Anxiety (ED), Panic Attack (ED) Additional Instructions: Your lab work, EKG and chest x-ray today is reassuring and shows no evidence of acute concerning findings. Drink plenty of fluids and get plenty of rest. You are being sent home with two tabs of Ativan to take as needed and directed for return of your symptoms. Follow-up with your primary care doctor in 1 week. Return to the emergency department with any worsening or new concerning symptoms. Discharge Data Discharge Date/Time-TO BE ENTERED AT DEPARTURE: 12/22/21 20:02 Discharge Physician: Linda Watson Medical Decision Making 36-year-old male with a history of migraine and depression presents for an episode of tingling in his face, fingertips, toes, chest tightness, difficulty catching his breath and mind racing and feeling scared that occurred while sitting at the computer 2 hours ago. He states his symptoms are now 90% resolved. Blood pressure hypertensive, remainder vitals within normal limits. EKG notes a rate of 55, sinus, no STEMI and nondiagnostic. Patient appears mildly anxious upon my assessment. Review of records note that patient was seen here last year for a similar presentation and had a full cardiac work-up including CT chest which was unremarkable. He states his symptom presentation is similar to this. It was thought at that time to potentially be due to anxiety or fluoxetine medication reaction. He states he drinks two 5-hour energies and four red bulls daily. PERC negative. Discussed with patient that his presentation appears consistent with anxiety or panic attack but we can obtain screening labs, imaging, EKG and plan for repeat troponin and EKG considering his recent onset of symptoms. He states he does not want to stay for repeat troponin and EKG and states he feels the symptoms are now resolved and would like to go home. He is agreeable to EKG and chest x-ray at this time. Patient is aware of the risks of missed or incomplete diagnoses which potentially could lead to or disability and he understands and demonstrates capacity to make decisions. Labs and imaging reviewed and unremarkable. Normal white blood cell count, normal electrolytes, negative troponin, normal TSH. Chest x-ray negative. Patient reassessed and his symptoms are resolved and he would like to go home. Discussed with patient that we could obtain a repeat troponin and EKG but again he declined stating he would like to go home. Advised to follow-up with his PCP for reevaluation and consideration for outpatient youth nutritional monitor if the symptoms do not improve or worsen. Advised to limit energy drinks. He was given 2 tabs of Ativan to go. Usual and customary return precautions given prior to discharge. Medical Records Medical records reviewed: Yes I reviewed the patient's medical records. Imaging Data Radiologic Study: Radiologist's impression: XR Chest Exam date and time: 12/22/2021 6:36 PM Age: 36 years old Clinical indication: Pain; Chest pressure TECHNIQUE: Imaging protocol: XR of the chest. Views: 2 views. COMPARISON: CT CHEST PE ABD PELVIS W 01/13/2021 11:16 PM FINDINGS: Lungs: Unremarkable. No consolidation. Pleural spaces: Unremarkable. No pleural effusion. No pneumothorax. Heart/Mediastinum: Unremarkable. No cardiomegaly. Bones/joints: Unremarkable. IMPRESSION: No acute findings. Lab Data Lab results reviewed: Yes I reviewed the patient's lab results. Labs: Laboratory Tests Range/Units 12/22/21 12/22/21 12/22/21 18:05 18:05 18:05 WBC (4.4-10.8) 10^3/uL 7.42 RBC (4.36-5.78) 10^6/uL 5.06 Hgb (13.5-17.5) g/dL 15.4 Hct (40.0-50.0) % 45.4 MCV (80-95) fL 89.7 MCH (27.0-33.0) pg 30.4 MCHC (32.0-36.0) % 33.9 RDW (11.8-14.1) % 11.6 L Plt Count (130-400) 10^3/uL 301 MPV (8.0-11.0) fL 9.0 Immature Gran % 0.1 Neutrophils % 54.8 Lymphocytes % 32.2 Monocytes % 9.8 Eosinophils % 2.2 Basophils % 0.9 Nucleated RBC % % 0 Absolute Neutrophils (1.2-6.7) 10^3/uL 4.06 Absolute Lymphocytes (1.2-3.4) 10^3/uL 2.39 Absolute Monocytes (0.1-0.8) 10^3/uL 0.73 Absolute Eosinophils (0.0-0.7) 10^3/uL 0.16 Absolute Basophils (0.0-0.2) 10^3/uL 0.07 Sodium (136-145) mmol/L 140 Potassium (3.5-5.1) mmol/L 4.0 Chloride (98-107) mmol/L 104 Carbon Dioxide (21.0-32.0) mmol/L 28.8 Anion Gap (3-11) mmol/L 7.2 BUN (7-18) mg/dL 9 Creatinine (0.70-1.30) mg/dL 0.9 Estimated GFR/1.73 m2 (mL/min/1.73m2) >= 60.00 Glucose (74-106) mg/dL 99 Calcium (8.5-10.1) mg/dL 9.3 Total Bilirubin (0.2-1.0) mg/dL 0.5 AST (15-37) U/L 21 ALT (16-63) U/L 37 Alkaline Phosphatase (46-116) U/L 78 Troponin I (<or=60) ng/L Total Protein (6.4-8.2) g/dL 7.9 Albumin (3.4-5.0) g/dL 4.6 Lipase (73-393) U/L 67 TSH (0.36-3.74) uIU/mL 1.49 Range/Units 12/22/21 18:05 WBC (4.4-10.8) 10^3/uL RBC (4.36-5.78) 10^6/uL Hgb (13.5-17.5) g/dL Hct (40.0-50.0) % MCV (80-95) fL MCH (27.0-33.0) pg MCHC (32.0-36.0) % RDW (11.8-14.1) % Plt Count (130-400) 10^3/uL MPV (8.0-11.0) fL Immature Gran % Neutrophils % Lymphocytes % Monocytes % Eosinophils % Basophils % Nucleated RBC % % Absolute Neutrophils (1.2-6.7) 10^3/uL Absolute Lymphocytes (1.2-3.4) 10^3/uL Absolute Monocytes (0.1-0.8) 10^3/uL Absolute Eosinophils (0.0-0.7) 10^3/uL Absolute Basophils (0.0-0.2) 10^3/uL Sodium (136-145) mmol/L Potassium (3.5-5.1) mmol/L Chloride (98-107) mmol/L Carbon Dioxide (21.0-32.0) mmol/L Anion Gap (3-11) mmol/L BUN (7-18) mg/dL Creatinine (0.70-1.30) mg/dL Estimated GFR/1.73 m2 (mL/min/1.73m2) Glucose (74-106) mg/dL Calcium (8.5-10.1) mg/dL Total Bilirubin (0.2-1.0) mg/dL AST (15-37) U/L ALT (16-63) U/L Alkaline Phosphatase (46-116) U/L Troponin I (<or=60) ng/L < 50 Total Protein (6.4-8.2) g/dL Albumin (3.4-5.0) g/dL Lipase (73-393) U/L TSH (0.36-3.74) uIU/mL ECG Data Attestation: I personally reviewed and interpreted this ECG (s) as follows: Interpretation: Rate of 55, sinus, normal axis. No STEMI HPI General Mode of arrival: ambulatory . Date/Time Provider Initiated Documentation: 12/22/21 17:30 . Limitations to Documentation: no limitations . Information obtained by: patient . HPI Narrative: Patient is a 36-year-old male who has a history of migraines who presents to the ED with complaint of an episode of facial tingling, tingling in his fingertips and toes with chest tightness, difficulty catching his breath, and feeling that his mind was racing and feeling scared that started at 4 PM while sitting at the computer. He states the symptoms lasted for 30 minutes and now are 90% resolved. Patient states he was going to follow-up with his primary care doctor tomorrow for this but became concerned and wanted to be evaluated. He denies any chest pain at present. Patient admits to a similar episode occurring last year for which he had a work-up in the ED which was unremarkable and he was discharged. Patient also states that he drank two 5-hour energies and four red bulls today which is his usual daily intake. He denies any other new drug use, alcohol use and states he smokes 2 cigarettes daily. He is not vaccinated for COVID and denies any new exposure to coronavirus. He denies any recent surgeries, recent travel, leg pain or swelling. Related Data Home Medications Medication Instructions Recorded Confirmed fremanezumab-vfrm 225 mg/1.5 mL 225 mg (1.5 mL) SUBCUT QMONTH #1.5 06/07/21 12/22/21 subcutaneous auto-injector (Ajovy) ml Previous Rx's Medication Instructions Recorded fremanezumab-vfrm 225 mg/1.5 mL 225 mg (1.5 mL) SUBCUT QMONTH #1.5 06/07/21 subcutaneous auto-injector (Ajovy) ml Allergies Allergy/AdvReac Type Severity Reaction Status Date / Time aspirin AdvReac Intermediate Unverified 12/22/21 17:35 General Stated Complaint: GenMedical FABY: 3 Review of Systems All systems reviewed & are unremarkable except as noted in HPI and below Constitutional Constitutional: Reports as per HPI, Denies chills and Denies fever(s) Eyes Eyes: Denies blurry vision ENT Ears, Nose, Mouth, and Throat: Denies dizziness, Denies sore throat and Denies throat swelling Cardiovascular Cardiovascular: Reports chest pain (chest tightness) and Reports dyspnea Respiratory Respiratory: Denies cough and Reports dyspnea Gastrointestinal Gastrointestinal: Denies abdominal pain, Denies diarrhea and Denies vomiting Genitourinary Genitourinary: Denies hematuria and Denies dysuria Musculoskeletal Musculoskeletal: Denies back pain, Reports numbness and Reports tingling (In face, fingertips and toes.) Integumentary/Breasts Skin/Breast: Denies lesions and Denies rash Neurologic Neurologic: Denies dizziness, Denies localized weakness, Reports numbness and Reports tingling (In face, fingertips and toes.) Allergic/Immunologic Allergic/Immunologic: Denies throat swelling [facility] All Active Problems (Updated 12/22/21 @ 19:33 by Linda Watson DO) Paresthesias (Acute) Muscle twitching (Acute) Acute appendicitis (Acute) Acute appendicitis (Acute) Finger laceration (Acute) Abdominal pain (Acute) Migraine headache without aura (Acute) Adverse reaction to antidepressant drug (Acute) Chest pain (Acute) Shortness of breath (Acute) Twitching (Acute) Medical History (Updated 12/22/21 @ 19:33 by Linda Watson DO) Acute angle-closure glaucoma Chronic lower back pain History of depression Muscle spasm Tobacco dependence Surgical History (Updated 06/14/21 @ 11:38 by Vianey Greenberg MD) History of hernia repair History of knee surgery History of surgery on wrist S/P laparoscopic appendectomy (~06/01/21) Social History Smoking/Tobacco Use Status: Current every day Tobacco Type: cigarettes Smoking risk assessment performed?: Yes Alcohol Intake: never Drug use: Never Substance use type: does not use Household members: spouse Housing: house Number of Children: 3 Pets and animals: Yes Pets and animals: cat(s), dog(s) and bird(s) What is your relationship status?: Panel score (0-1 are the most socially isolated patients): 1 What type of physical activity do you participate in: walking Seatbelt use: always Do you feel safe at home: Yes Do you feel safe in your relationship?: Yes Exam Const General: cooperative, healthy appearing, no acute distress and anxious (mild) Orientation: alert, awake and oriented x3 HENMT Head: normal to inspection Ears: hearing grossly normal bilaterally and external ears normal Mouth: oral mucosae normal Eyes General: appearance normal, both eyes and all related structures Eyelids: eyelids normal Conjunctivae: conjunctivae normal Pupils: PERRL EOM: EOM intact bilaterally Neck Neck: normal visual inspection Resp Effort & Inspection: normal respiratory effort and able to speak in complete sentences Auscultation: clear to auscultation bilaterally Cardio Rate: regular rate Rhythm: regular rhythm GI Palpation: soft, not firm, no guarding, not rigid and nontender Skin General skin exam: no rashes or lesions noted Neuro General: patient alert, patient awake, patient oriented x3, gait normal, moves all extremities and no meningeal signs Cranial Nerves: CN's II-XI intact bilaterally Motor: muscle tone normal throughout and strength 5/5 throughout Extrem General: normal to inspection, full ROM and no edema Psych Appearance: grossly normal Affect: normal affect Course Vital Signs Vital signs: Vital Signs Temperature 97.5 F L 12/22/21 17:31 Pulse 68 12/22/21 17:31 Respiratory Rate 16 12/22/21 17:31 Blood Pressure 155/78 H 12/22/21 17:31 Pulse Oximetry 100 12/22/21 17:31 Temperature 97.5 F L 12/22/21 17:31 Temperature Source Skin 12/22/21 17:31 Pulse 68 12/22/21 17:31 Respiratory Rate 16 12/22/21 17:31 Respiratory Effort 12/22/21 17:31 Blood Pressure 155/78 H 12/22/21 17:31 Blood Pressure Position Sitting 12/22/21 17:31 Pulse Oximetry 100 12/22/21 17:31 Oxygen Delivery Method Room Air 12/22/21 17:31 Oxygen Flow Rate 0 12/22/21 17:31 Pain Level 0 12/22/21 17:31
[2021-12-22 18:06] VITALS: RESP 18
[2021-12-22 18:16] LABS: Abs Immature Grans 0.01 10^3/uL (0.0-0.06); Absolute Basophil Count 0.07 10^3/uL (0.0-0.2); Absolute Eosinophil Count 0.16 10^3/uL (0.0-0.7); Absolute Lymphocyte Count 2.39 10^3/uL (1.2-3.4); Absolute Monocyte Count 0.73 10^3/uL (0.1-0.8); Absolute Neutrophil Count 4.06 10^3/uL (1.2-6.7); Basophils % 0.9; Eosinophils % 2.2; HCT 45.4 % (40.0-50.0); HGB 15.4 g/dL (13.5-17.5); Immature Grans % 0.1; Lymphocytes % 32.2; MCH 30.4 pg (27.0-33.0); MCHC 33.9 % (32.0-36.0); MCV 89.7 fL (80-95); Monocytes % 9.8; Neutrophils % 54.8; Nucleated RBC 0 %; Platelet Count 301 10^3/uL (130-400); RBC 5.06 10^6/uL (4.36-5.78); RDW 11.6 % (11.8-14.1); RDW-SD 37.6 fL; WBC 7.42 10^3/uL (4.4-10.8)
[2021-12-22 18:25] LABS: ALT 37 U/L (16-63); AST 21 U/L (15-37); Albumin 4.6 g/dL (3.4-5.0); Alkaline Phosphatase 78 U/L (46-116); Anion Gap 7.2 mmol/L (3-11); BUN 9 mg/dL (7-18); Bilirubin, Total 0.5 mg/dL (0.2-1.0); CO2 28.8 mmol/L (21.0-32.0); CREATININE 0.9 mg/dL (0.70-1.30); Calcium 9.3 mg/dL (8.5-10.1); Chloride 104 mmol/L (98-107); Glucose 99 mg/dL (74-106); Lipase 67 U/L (73-393); Sodium 140 mmol/L (136-145); Total Protein 7.9 g/dL (6.4-8.2)
--- NOTE | 2021-12-22 18:30 | DI.RAD_ITS ---
Exam(s) XR CHEST 2V PA LATERAL EXAM: XR CHEST 2V PA LATERAL CLINICAL HISTORY: chest pain, r/o acute disease. TECHNIQUE: 2D digital imaging was performed. COMPARISON: Prior chest x-ray 09/16/2019 FINDINGS: Heart size is normal. The mediastinum is not widened. Lungs are clear. No infiltrates nor pleural effusions. IMPRESSION: No acute pulmonary findings. DATA REPOSITORY: RADIATION DOSE DELIVERED:
--- NOTE | 2021-12-22 18:30 | RT.EKG_ITS ---
APPROVED REPORT Exam: Resting ECG Reason for Exam: chest pain Patient Location: E HR:55 bpm ECG Measurements Heart Rate [address] 159 P 56 QRSd 99 QRS 49 QT 412 T 33 QTc 394 Conclusion Slow sinus arrhythmia...V-rate 46- 67, mean< 60. Sinus. Normal axis. No STEMI. I have reviewed and interpreted ECG and agree with software generated interpretation.
[2021-12-22] MEDS: Normal Saline 1,000 ML 1000 ML IV (18:42)
--- NOTE | 2021-12-22 18:52 | NUR.NOTE ---
Nursing Note: Pt to DI and return via stretcher, no new complaints, cont. to monitor.
--- NOTE | 2021-12-22 19:13 | DI.VRAD_ITS ---
PROCEDURE INFORMATION: Exam: XR Chest Exam date and time: 12/22/2021 6:36 PM Age: 36 years old Clinical indication: Pain; Chest pressure TECHNIQUE: Imaging protocol: XR of the chest. Views: 2 views. COMPARISON: CT CHEST PE ABD PELVIS W 01/13/2021 11:16 PM FINDINGS: Lungs: Unremarkable. No consolidation. Pleural spaces: Unremarkable. No pleural effusion. No pneumothorax. Heart/Mediastinum: Unremarkable. No cardiomegaly. Bones/joints: Unremarkable. IMPRESSION: No acute findings. Dictated and Authenticated by: Carolyn Poole MD. Ordering:EULALIA Mckeon MD
[2021-12-22 19:20] LABS: TSH (W/Ref FT4) 1.49 uIU/mL (0.36-3.74)
[2021-12-22 19:39] LABS: Troponin I < 50 ng/L (<or=60)
[2021-12-22] MEDS: LORazepam 0.5 MG TAB 1 MG PO (19:51)
[2021-12-22 20:00] VITALS: BP 138/88; PULSE 88; RESP 18; TEMP 36.8; O2SAT 98
== END 2021-12-22 20:02 | disposition home or self-care (01) ==
PROVIDERS: Emergency Provider Physician Assistant; PCP Nurse Practitioner Family
DX: R20.2 Paresthesia of skin (principal); R25.3 Fasciculation; R06.02 Shortness of breath; R07.89 Other chest pain
CPT/HCPCS: 36415; 80053; 83690; 93005; 96360; 99284; 71046; 84443; 84484; 85025; 93010; 99283

== ENCOUNTER 2022-02-11 19:24 | Emergency (ER) | payer MEDICAID, SELFPAY ==
[2022-02-11 19:29] VITALS: BP 146/80; PULSE 68; RESP 18; TEMP 36.5; O2SAT 99
--- NOTE | 2022-02-11 20:06 | W.ED.GENAD ---
Discharge Plan Disposition Patient Disposition: HOME Condition: Stable Discharge Details Clinical Impression: Anxiety Primary Care Provider: Leda Briggs ED Provider: Bethany Durham Home Meds and New Rx's Prescriptions: New bupropion HCl [Wellbutrin SR] 150 mg tablet sustained-release 12 hr 150 mg PO BID Qty: 30 0RF Continued lorazepam 0.5 mg tablet 0.5 mg PO PRN [id number] Label Comments: TAKE 1 TABLET BY MOUTH EVERY DAY NEEDED FOR PANIC ATTACKS Discharge Instructions Instructions: Anxiety (ED) Additional Instructions: Please follow-up with [facility] for counseling Start taking the Wellbutrin, 150 mg twice daily My recommendation is that you follow-up with primary care physician in 1 to 2 days for reassessment Should you have any thoughts of wanting to harm self, others, or with any new or worsening complaints, please return to the emergency room. You may take Ativan, 1 mg every 8 hours as needed for anxiety, do not take longer than 3 days straight Referrals: [facility] [Provider Group] Leda Briggs [Primary Care Provider] - Discharge Data Discharge Date/Time-TO BE ENTERED AT DEPARTURE: 02/11/22 21:00 Medical Decision Making Patient appears well, he has great insight and judgment He is very appropriate in demeanor Work-up with normal thyroid and blood work approximately a month prior to arrival today See no clear indication for repeat blood work at this time I did prescribe the patient Wellbutrin, I suspect an element of his symptoms related to his recent smoking cessation and he is made aware regarding the black box warning starting these medications and that he should stop immediately should he has any suicidal thoughts He had mental health assessment additionally and he is going to establish care with an nightly He feels comfortable discharge home at this time He is given several additional dose of Ativan and a prescription for Wellbutrin He is given low threshold to return should he have new or worsening complaints Medical Records Medical records reviewed: Yes I reviewed the patient's medical records. Lab Data Lab results reviewed: Yes I reviewed the patient's lab results. HPI General Date/Time Provider Initiated Documentation: 02/11/22 19:48. HPI Narrative: This 36-year-old male presents with report of paresthesias to hands, feet, and shortness of breath. Denies any chest pain. States his symptoms are similar to his prior panic attacks. He does state that he cannot smoking tobacco approximately a month ago and these episodes of anxiety and panic darted almost immediately thereafter. He has used tobacco of the. He quit smoking cigarettes on his own reportedly. He states that he was in a prescription for sertraline which unfortunately had adverse effects. There is also given a prescription for Ativan which he took this evening, 0.5 mg which did not help with symptoms. He denies any suicidal or homicidal ideation. He states he had prior evaluation in the emergency department and was subsequently established with a PCP for similar episode. Related Data Home Medications Medication Instructions Recorded Confirmed bupropion HCl 150 mg tablet,12 hr 150 mg PO BID #30 tab 02/11/22 sustained-release (Wellbutrin SR) lorazepam 0.5 mg tablet 0.5 mg PO PRN PRN 02/11/22 02/11/22 Previous Rx's Medication Instructions Recorded bupropion HCl 150 mg tablet,12 hr 150 mg PO BID #30 tab 02/11/22 sustained-release (Wellbutrin SR) Allergies Allergy/AdvReac Type Severity Reaction Status Date / Time aspirin AdvReac Intermediate Unverified 02/11/22 19:34 General Stated Complaint: Anxiety FABY: 4 Review of Systems All systems reviewed & are unremarkable except as noted in HPI and below PFSH All Active Problems (Updated 02/11/22 @ 20:14 by TATIANA Banegas) Anxiety (Chronic) Acute appendicitis (Acute) Acute appendicitis (Acute) Finger laceration (Acute) Abdominal pain (Acute) Migraine headache without aura (Acute) Adverse reaction to antidepressant drug (Acute) Chest pain (Acute) Shortness of breath (Acute) Twitching (Acute) Medical History (Updated 02/11/22 @ 20:14 by TATIANA Banegas) Acute angle-closure glaucoma Chronic lower back pain History of depression Muscle spasm Tobacco dependence Surgical History (Updated 06/14/21 @ 11:38 by Vianey Greenberg MD) History of hernia repair History of knee surgery History of surgery on wrist S/P laparoscopic appendectomy (~06/01/21) Social History Smoking/Tobacco Use Status: Current every day Tobacco Type: cigarettes Smoking risk assessment performed?: Yes Alcohol Intake: never Drug use: Never Substance use type: does not use Household members: spouse Housing: house Number of Children: 3 Pets and animals: Yes Pets and animals: cat(s), dog(s) and bird(s) What is your relationship status?: Panel score (0-1 are the most socially isolated patients): 1 What type of physical activity do you participate in: walking Seatbelt use: always Do you feel safe at home: Yes Do you feel safe in your relationship?: Yes Exam Const General: cooperative, comfortable and no acute distress Eyes Pupils: PERRL Resp Effort & Inspection: normal respiratory effort Cardio Rate: regular rate Rhythm: regular rhythm Neuro General: patient alert, patient oriented x3, no focal motor deficits and CN's II-XI intact bilaterally Cranial Nerves: PERRL Psych Appearance: grossly normal and well kempt Mental Status: mental status grossly normal Speech and Movement: speech and movement normal Affect: normal affect Attitude: cooperative Thought Process: normal Thought Content: normal Insight: insight good Judgment: judgment good Course Vital Signs Vital signs: Vital Signs Temperature 36.5 C 02/11/22 19:29 Pulse 68 02/11/22 19:29 Respiratory Rate 18 02/11/22 19:29 Blood Pressure 146/80 H 02/11/22 19:29 Pulse Oximetry 99 02/11/22 19:29 Temperature 36.5 C 02/11/22 19:29 Temperature Source Skin 02/11/22 19:29 Pulse 68 02/11/22 19:29 Respiratory Rate 18 02/11/22 19:29 Respiratory Effort 02/11/22 19:36 Blood Pressure 146/80 H 02/11/22 19:29 Blood Pressure Position Sitting 02/11/22 19:29 Pulse Oximetry 99 02/11/22 19:29 Oxygen Delivery Method Room Air 02/11/22 19:29 Oxygen Flow Rate 0 02/11/22 19:29 Pain Level 0 02/11/22 19:29
[2022-02-11] MEDS: LORazepam 1 MG TAB PO ×2 (20:56)
--- NOTE | 2022-02-11 22:23 | PDOC.MHCN_ITS ---
Date of service: 02/11/22 Time of Service: 20:15 Mental Health Crisis Note Presenting Issue How did you arrive at the ED and why did you come: Client arrived at [facility] ED via self after experiencing a panic attack. Precipitating Factors Client denies current SI/HI,intent and plan. Disposition BEHAVIOR: Client is sitting up in hospital bed dressed in hospital gown when this junior underwriter arrives via zoom. Client is cooperative answering all of the questions that are being asked of him. EYE CONTACT: Client gives good eye contact. MOOD: Clients mood appears to be anxious. AFFECT: Congruent with mood. APPETITE: did not assess. SLEEP(trouble falling/staying asleep: did not assess Plan Client completed intake paperwork with this junior underwriter. Provider will start client on Welbutrin. This junior underwriter will send referral for therapy. Signature Clinician's Name/Title: Shae Sanchez [facility] Emergency Clinician
== END 2022-02-11 21:00 | disposition home or self-care (01) ==
PROVIDERS: Emergency Provider Physician Assistant; PCP Nurse Practitioner Family
DX: F41.9 Anxiety disorder, unspecified (principal)
CPT/HCPCS: 99283

== ENCOUNTER 2022-04-16 11:29 | Emergency (ER) | payer MEDICAID, SELFPAY ==
--- NOTE | 2022-04-16 11:30 | RT.EKG_ITS ---
APPROVED REPORT Exam: Resting ECG Reason for Exam: shortness of breath Patient Location: E HR:61 bpm ECG Measurements Heart Rate 61 AXIS IL 151 P 69 QRSd 93 QRS 59 QT 398 T 37 QTc 400 Conclusion Sinus rhythm...normal P axis, V-rate 60- 99 ST elev, probable normal early repol pattern...ST elevation, age<55
[2022-04-16 11:32] VITALS: BP 124/74; PULSE 65; RESP 16; TEMP 36.7; O2SAT 100
--- NOTE | 2022-04-16 12:00 | DI.CT_ITS ---
Exam(s) CT HEAD CERVICAL SPINE WO EXAM: CT HEAD CERVICAL SPINE WO CLINICAL HISTORY: Left sided numbness, tingling. TECHNIQUE: Imaging Protocol: Axial computed tomography images with coronal and sagittal reformatted images were created and reviewed COMPARISON: No exams were available for comparison FINDINGS: Head CT Ventricles and Extra axial spaces: Normal in size and morphology for the patient's age. Hemorrhage: None. Cerebral parenchyma: Normal. Midline shift: None. Brainstem/Cerebellum: Normal. Calvarium: Normal. Visualized Paranasal sinuses/Mastoids: Clear. Cervical Spine CT BONES: Vertebral body heights are maintained. Alignment is normal. There is no evidence of acute frac ture. Minimal degenerative changes C3-4. SOFT TISSUES: No paraspinal hematoma. The airway appears intact. No pneumothorax is seen at the lung apices. small less than 1 cm circumscribed nodule right lobe of thyroid. IMPRESSION: Head CT: Normal C-spine CT: , no acute abnormality. RADIATION DOSE DELIVERED: 1,585.84mGy.cm Total DLP DATA REPOSITORY: All CT scans at this facility are submitted to the National Radiology Data Registry (NRDR) Dose Index Registry (DIR) with the [employer] ([employer]). RADIATION OPTIMIZATION: All CT scans at this facility use at least one of these dose optimization te chniques: automated exposure control; mA and/or kV adjustment per patient size (includes targeted exa ms where dose is matched to clinical indication); or iterative reconstruction.
--- NOTE | 2022-04-16 12:00 | DI.RAD_ITS ---
Exam(s) XR CHEST 2V PA LATERAL EXAM: XR CHEST 2V PA LATERAL CLINICAL HISTORY: SOB TECHNIQUE: 2D digital imaging was performed. COMPARISON: CR,XR XR CHEST 2V PA LATERAL from 12/22/2021 FINDINGS: MEDIASTINUM: Normal. HEART: Normal. PULMONARY VASCULATURE: Normal. LUNGS: Clear. PLEURAL SPACE: No pleural effusion or pneumothorax. BONE:Unremarkable for age. IMPRESSION: No acute abnormality. DATA REPOSITORY: RADIATION DOSE DELIVERED:
[2022-04-16 12:06] LABS: Abs Immature Grans 0.01 10^3/uL (0.0-0.06); Absolute Basophil Count 0.04 10^3/uL (0.0-0.2); Absolute Lymphocyte Count 1.48 10^3/uL (1.2-3.4); Absolute Monocyte Count 0.58 10^3/uL (0.1-0.8); Absolute Neutrophil Count 2.71 10^3/uL (1.2-6.7); Basophils % 0.8; HCT 42.2 % (40.0-50.0); HGB 14.3 g/dL (13.5-17.5); Immature Grans % 0.2; Lymphocytes % 30.1; MCH 30.6 pg (27.0-33.0); MCHC 33.9 % (32.0-36.0); MCV 90 fL (80-95); MPV 8.9 fL (8.0-11.0); Monocytes % 11.8; Neutrophils % 55.1; Platelet Count 249 10^3/uL (130-400); RBC 4.67 10^6/uL (4.36-5.78); RDW 11.9 % (11.8-14.1); RDW-SD 39.1 fL; WBC 4.92 10^3/uL (4.4-10.8)
--- NOTE | 2022-04-16 12:10 | ED.GENADUL_ITS ---
Discharge Plan Disposition Patient Disposition: HOME Condition: Stable Discharge Details Clinical Impression: Numbness and tingling of left arm and leg Primary Care Provider: Leda Briggs ED Provider: Daniella Mendez Home Meds and New Rx's Prescriptions: No Action lorazepam 0.5 mg tablet 0.5 mg PO PRN PRN Label Comments: TAKE 1 TABLET BY MOUTH EVERY DAY NEEDED FOR PANIC ATTACKS Discharge Instructions Instructions: Paresthesia (ED) Additional Instructions: At this time CT shows possible bulging disc at C3-C4 in your neck. This may cause some numbness and tingling or burning sensations. If this continues you may need an MRI of your neck please discuss this with your primary care provider. There is also a nodule on your thyroid which can cause some numbness and tingling, a thyroid blood test was added onto your labs. Please also follow-up with your primary care provider regarding this within a week if possible. Follow up with primary care provider in 7 days. Return to ED sooner if any worsening or concerns. Increase oral fluids. Referrals: Leda Briggs [Primary Care Provider] - 1 week Discharge Data Discharge Date/Time-TO BE ENTERED AT DEPARTURE: 04/16/22 13:58 Medical Decision Making 36-year-old male presents to the ER with chief complaint of left-sided numbness tingling which began last night before bed. Patient also endorses left elbow and knee achiness, mild shortness of breath and feeling as if his extremities are cold. He denies any headache no blurry vision denies any neck or back pain. He denies any chest pain or abdominal pain. He denies any nausea vomiting, does endorse diarrhea for the last few days. Patient has a past medical history of migraine headaches, acute appendicitis, anxiety, acute angle-closure glaucoma, chronic lower back pain. He is a smoker. He does endorse occasional marijuana did smoke marijuana last night. He also reports that he drinks approximately 4-6 Redbulls a day. He did have one this morning. Physical exam is largely unremarkable. Cranial nerves II through XII are intact. No pronator drift intact dorsiflexion pedal flexion bilaterally. Fishing Guide are equal bilaterally. Pupils are PERRLA. No midline C-spine tenderness no midline T or L-spine tenderness with palpation. Abdomen is soft nontender. This time work-up ordered including EKG, troponin, CBC CMP, urinalysis urine drug screen. Tick and Lyme panel added on due to patient reporting that he had tick bite on his left knee couple days ago he reports that it was not attached very long. Chest x-ray due to complaint of shortness of breath. CT shows minimal disc bulge at C3-C4. No obvious compression of the prather canal or central stenosis identified by CT. I do recommend an MRI if symptoms persist. I do feel is appropriate to have patient follow-up with PCP regarding this. There is also noted to be a thyroid approximately 8 mm in diameter a TSH was added onto labs. I will also encourage follow-up with PCP. This text was generated using [employer] dictation system, please disregard any oddi ties of phrase or misspellings. Patient ambulatory without difficulty upon discharge. Remained alert and oriented x4 hemodynamically stable alert and oriented verbalized understanding of follow-up. Medical Records Medical records reviewed: Yes I reviewed the patient's medical records. Imaging Data Radiologic Study: Imaging: X-Ray Radiologist's impression: Views: 2 views. COMPARISON: CR XR CHEST 2V PA LATERAL 22/12/2021 18:54 FINDINGS: Lungs: Unremarkable. No consolidation. Pleural spaces: Unremarkable. No pleural effusion. No pneumothorax. Heart/Mediastinum: Unremarkable. No cardiomegaly. Bones/joints: Unremarkable for patient's age. IMPRESSION: No acute cardiopulmonary findings. Radiologic Study #2: Imaging: CT Scan Radiologist's impression: Exam: CT Head Without Contrast Exam date and time: 04/16/2022 1:02 PM Age: 36 years old Clinical indication: Other: Left sided numbness and tingling TE CHNIQUE: Imaging protocol: Computed tomography of the head without contrast. Radiation optimization: All CT scans at this facility use at least one of these dose optimization techniques: automated exposure control; mA and/or kV adjustment per patient size (includes targeted exams where dose is matched to clinical indication); or iterative reconstruction. COMPARISON: MRI - BRAIN WO CONTRAST 01/05/2017 5:42 PM FINDINGS: Brain: The cerebral sulci and the ventricles are within normal limits. There is no evidence of acute hemorrhage, mass or shift. There is no evidence of an acute cortical or major vascular territory infarct. No abnormal extra-axial collections are identified. Cerebral ventricles: No significant ventricular enlargement/hydrocephalus. Paranasal sinuses: No significant sinus opacification or fluid level Mastoid air cells: No significant mastoid opacification Bones/joints: There is no acute bony abnormality Soft tissues: Subcutaneous soft tissues are unremarkable IMPRESSION: No acute findings. FINDINGS: Bones/joints: There is mild straightening of the cervical lordosis which may be positional or due to spasm. Bony mineralization is within normal limits. There is no evidence of an acute fracture. There is no decrease of vertebral body height. There is no acute or destructive bony abnormality. Discs/Spinal canal/Neural foramina: There is a minimal disc bulge or right paracentral protrusion noted at C3-C4. There is no high-grade central stenosis or cord compression identified by CT examination. The foramina appear patent at all visualized levels. Lungs: Visualized lung apices are clear Thyroid: There is a small nonspecific nodule within the thyroid gland approximately 8 mm in diameter on series 11, image 56. Lymph nodes: There are small shotty bilateral cervical nodes likely reactive. Soft tissues: There is no evidence of a discrete soft tissue mass in the neck IMPRESSION: 1. No acute findings. 2. Minimal bulge or protrusion at C3-C4.If further evaluation of the intervertebral discs, canal, cord, foramina is indicated MR correlation recommended Lab Data Lab results reviewed: Yes I reviewed the patient's lab results. Labs: Laboratory Tests Range/Units 04/16/22 04/16/22 04/16/22 12:00 12:00 12:00 WBC (4.4-10.8) 10^3/uL 4.92 RBC (4.36-5.78) 10^6/uL 4.67 Hgb (13.5-17.5) g/dL 14.3 Hct (40.0-50.0) % 42.2 MCV (80-95) fL 90 MCH (27.0-33.0) pg 30.6 MCHC (32.0-36.0) % 33.9 RDW (11.8-14.1) % 11.9 Plt Count (130-400) 10^3/uL 249 MPV (8.0-11.0) fL 8.9 Immature Gran % 0.2 Neutrophils % 55.1 Lymphocytes % 30.1 Monocytes % 11.8 Eosinophils % 2.0 Basophils % 0.8 Nucleated RBC % (0.0-0.3) % 0.0 Absolute Neutrophils (1.2-6.7) 10^3/uL 2.71 Absolute Lymphocytes (1.2-3.4) 10^3/uL 1.48 Absolute Monocytes (0.1-0.8) 10^3/uL 0.58 Absolute Eosinophils (0.0-0.7) 10^3/uL 0.10 Absolute Basophils (0.0-0.2) 10^3/uL 0.04 Sodium (136-145) mmol/L 144 Potassium (3.5-5.1) mmol/L 3.8 Chloride (98-107) mmol/L 109 H Carbon Dioxide (21.0-32.0) mmol/L 28.3 Anion Gap (3-11) mmol/L 6.7 BUN (7-18) mg/dL 14 Creatinine (0.70-1.30) mg/dL 1.0 Estimated GFR/1.73 m2 (mL/min/1.73m2) >= 60.00 Glucose (74-106) mg/dL 83 Calcium (8.5-10.1) mg/dL 8.8 Magnesium (1.8-2.4) mg/dL 1.7 L Total Bilirubin (0.2-1.0) mg/dL 0.8 AST (15-37) U/L 22 ALT (16-63) U/L 29 Alkaline Phosphatase (46-116) U/L 60 Troponin I (<or=60) ng/L < 50 Total Protein (6.4-8.2) g/dL 6.7 Albumin (3.4-5.0) g/dL 4.0 TSH (0.36-3.74) uIU/mL 0.84 Urine Color (Yellow) Urine Clarity (Clear) Urine pH (5-8) Ur Specific [place] (1.005-1.025) Urine Protein (Negative) mg/dL Urine Ketones (Negative) mg/dL Urine Blood (Negative) Urine Nitrite (Negative) Urine Bilirubin (Negative) Urine Urobilinogen (Up TO 0.2) EU/dL Ur Leukocyte Esterase (Negative) Urine Glucose (Negative) mg/dL Urine Opiates Screen (Negative) Urine Methadone Screen (Negative) Ur Barbiturates Screen (Negative) Ur Tricyclics Screen (Negative) Ur Amphetamines Screen (Negative) U Benzodiazepines Scrn (Negative) Urine Cocaine Screen (Negative) Ur THC Screen (Negative) Range/Units 04/16/22 04/16/22 04/16/22 12:20 12:20 14:46 WBC (4.4-10.8) 10^3/uL RBC (4.36-5.78) 10^6/uL Hgb (13.5-17.5) g/dL Hct (40.0-50.0) % MCV (80-95) fL MCH (27.0-33.0) pg MCHC (32.0-36.0) % RDW (11.8-14.1) % Plt Count (130-400) 10^3/uL MPV (8.0-11.0) fL Immature Gran % Neutrophils % Lymphocytes % Monocytes % Eosinophils % Basophils % Nucleated RBC % (0.0-0.3) % Absolute Neutrophils (1.2-6.7) 10^3/uL Absolute Lymphocytes (1.2-3.4) 10^3/uL Absolute Monocytes (0.1-0.8) 10^3/uL Absolute Eosinophils (0.0-0.7) 10^3/uL Absolute Basophils (0.0-0.2) 10^3/uL Sodium (136-145) mmol/L Potassium (3.5-5.1) mmol/L Chloride (98-107) mmol/L Carbon Dioxide (21.0-32.0) mmol/L Anion Gap (3-11) mmol/L BUN (7-18) mg/dL Creatinine (0.70-1.30) mg/dL Estimated GFR/1.73 m2 (mL/min/1.73m2) Glucose (74-106) mg/dL Calcium (8.5-10.1) mg/dL Magnesium (1.8-2.4) mg/dL Total Bilirubin (0.2-1.0) mg/dL AST (15-37) U/L ALT (16-63) U/L Alkaline Phosphatase (46-116) U/L Troponin I (<or=60) ng/L Cancelled Total Protein (6.4-8.2) g/dL Albumin (3.4-5.0) g/dL TSH (0.36-3.74) uIU/mL Urine Color (Yellow) Straw Urine Clarity (Clear) Clear Urine pH (5-8) 6.5 Ur Specific [place] (1.005-1.025) 1.010 Urine Protein (Negative) mg/dL Negative Urine Ketones (Negative) mg/dL Negative Urine Blood (Negative) Negative Urine Nitrite (Negative) Negative Urine Bilirubin (Negative) Negative Urine Urobilinogen (Up TO 0.2) EU/dL 0.2 Ur Leukocyte Esterase (Negative) Negative Urine Glucose (Negative) mg/dL Negative Urine Opiates Screen (Negative) Negative Urine Methadone Screen (Negative) Negative Ur Barbiturates Screen (Negative) Negative Ur Tricyclics Screen (Negative) Negative Ur Amphetamines Screen (Negative) Negative U Benzodiazepines Scrn (Negative) Negative Urine Cocaine Screen (Negative) Negative Ur THC Screen (Negative) Negative HPI General Date/Time Provider Initiated Documentation: 04/16/22 11:46 . Limitations to Documentation: no limitations . Information obtained by: patient, RN notes reviewed and old records reviewed . HPI Narrative: 36-year-old male presents to the ER with chief complaint of left-sided numbness tingling which began last night before bed. He awoke today at approximately 10 am and tingling was still there and worse. He did take a lorazepam 0.5 mg p.o. approximately 45 minutes prior to arrival. Patient also endorses left elbow and knee achiness, mild shortness of breath and feeling as if his extremities are cold. He denies any headache no blurry vision denies any neck or back pain. He denies any chest pain or abdominal pain. He denies any nausea vomiting, does endorse diarrhea for the last few days. Patient has a past medical history of migraine headaches, acute appendicitis, anxiety, acute angle-closure glaucoma, chronic lower back pain. He is a smoker. He does endorse occasional marijuana did smoke marijuana last night. He also reports that he drinks approximately 4-6 Redbulls a day. He did have one this morning. Related Data Home Medications Medication Instructions Recorded Confirmed lorazepam 0.5 mg tablet 0.5 mg PO PRN PRN 02/11/22 02/11/22 Allergies Allergy/AdvReac Type Severity Reaction Status Date / Time aspirin AdvReac Intermediate Unverified 04/16/22 11:44 General Stated Complaint: CVA/TIA FABY: 2 Review of Systems All systems reviewed & are unremarkable except as noted in HPI and below Constitutional Constitutional: Denies chills, Denies fever(s), Denies frequent falls, Denies headache(s) and Denies weakness Eyes Eyes: Denies loss of vision ENT Ears, Nose, Mouth, and Throat: Denies abnormal hearing, Denies vertigo, Denies dizziness and Denies headache(s) Cardiovascular Cardiovascular: Denies chest pain, Denies syncope, Denies irregular heart rhythm, Denies leg edema and Reports dyspnea Respiratory Respiratory: Denies cough, Denies hemoptysis, Reports dyspnea, Denies stridor and Denies wheezing Gastrointestinal Gastrointestinal: Denies abdominal pain, Reports diarrhea, Denies nausea and Denies vomiting Musculoskeletal Musculoskeletal: Reports as per HPI, Denies abnormal gait, Reports arthralgias, Reports numbness and Reports tingling Neurologic Neurologic: Denies abnormal hearing, Denies abnormal speech, Denies abnormal gait, Denies confusion, Denies vertigo, Denies dizziness, Denies syncope, Denies frequent falls, Denies headache(s), Denies lack of coordination, Denies loss of vision, Denies memory loss, Reports numbness, Denies other visual disturbances, Denies convulsions, Denies seizure-like activity, Denies sensory deficit, Reports tingling, Denies tremor(s) and Denies weakness Psychiatric Psychiatric: Denies confusion, Denies memory loss and Reports panic attacks Allergic/Immunologic Allergic/Immunologic: Denies wheezing PFSH All Active Problems (Updated 04/16/22 @ 13:45 by Daniella Mendez NP) Numbness and tingling of left arm and leg (Acute) Acute appendicitis (Acute) Acute appendicitis (Acute) Finger laceration (Acute) Abdominal pain (Acute) Migraine headache without aura (Acute) Adverse reaction to antidepressant drug (Acute) Chest pain (Acute) Shortness of breath (Acute) Twitching (Acute) Medical History (Updated 04/16/22 @ 13:45 by Daniella Mendez NP) Acute angle-closure glaucoma Chronic lower back pain History of depression Muscle spasm Tobacco dependence Surgical History (Updated 06/14/21 @ 11:38 by Vianey Greenberg MD) History of hernia repair History of knee surgery History of surgery on wrist S/P laparoscopic appendectomy (~06/01/21) Social History Smoking/Tobacco Use Status: Current every day Tobacco Type: cigarettes Smoking risk assessment performed?: Yes Alcohol Intake: never Drug use: Never Substance use type: does not use Household members: spouse Housing: house Number of Children: 3 Pets and animals: Yes Pets and animals: cat(s), dog(s) and bird(s) What is your relationship status?: Panel score (0-1 are the most socially isolated patients): 1 What type of physical activity do you participate in: walking Seatbelt use: always Do you feel safe at home: Yes Do you feel safe in your relationship?: Yes Exam Narrative Exam Narrative: Constitutional: Alert and oriented x3. Appears stated age. Normal body habitus. Head: Normocephalic, no trauma. Eyes: Pupils PERRL, Red reflex noted, EOM's intact. Eyelids symmetrical without lesions, discharge, or swelling. ENT: Bilateral TM's WNL, External ear normal to inspection, no mastoid TTP, swelling, or erythema, Nasal turbinates WNL, no nasal discharge. Normal dentition, Posterior pharynx WNL, no exudate. Chest: RRR, Normal S1, S2, distal pulses intact. Resp: Lungs clear to auscultation bilaterally, no wheezes, rales, or rhonchi. Abdomen: Soft, non-distended, Normoactive bowel sounds all 4 quads. Musculoskeletal: Normal gait, 5/5 strength to all four extremities. Skin: No suspicious rashes or lesions. Capillary refill less than 2 sec. Neurologic: Cranial nerves II-XII intact. Alert and oriented x 3. Motor: No deficits noted. Sensory: Intact bilaterally all 4 extremities. Reflexes: DTR's intact bilaterally.. Hematologic/Lymphatic: No ecchymosis, no lymphadenopathy. Course Vital Signs Vital signs: Vital Signs Temperature 36.7 C 04/16/22 11:32 Pulse 65 04/16/22 11:32 Respiratory Rate 16 04/16/22 11:32 Blood Pressure 124/74 04/16/22 11:32 Pulse Oximetry 100 04/16/22 11:32 Temperature 36.7 C 04/16/22 11:32 Temperature Source Temporal Artery Scan 04/16/22 11:32 Pulse 65 04/16/22 11:32 Respiratory Rate 16 04/16/22 11:32 Respiratory Effort Non-Labored 04/16/22 11:43 Blood Pressure 124/74 04/16/22 11:32 Blood Pressure Position Sitting 04/16/22 11:32 Pulse Oximetry 100 04/16/22 11:32 Oxygen Delivery Method Room Air 04/16/22 11:32 Oxygen Flow Rate 0 04/16/22 11:32 Pain Level 0 04/16/22 11:32 Lab/Test Results Lab/Test Results: Laboratory Tests Range/Units 04/16/22 12:00 WBC (4.4-10.8) 10^3/uL 4.92 RBC (4.36-5.78) 10^6/uL 4.67 Hgb (13.5-17.5) g/dL 14.3 Hct (40.0-50.0) % 42.2 MCV (80-95) fL 90 MCH (27.0-33.0) pg 30.6 MCHC (32.0-36.0) % 33.9 RDW (11.8-14.1) % 11.9 Plt Count (130-400) 10^3/uL 249 MPV (8.0-11.0) fL 8.9 Immature Gran % 0.2 Neutrophils % 55.1 Lymphocytes % 30.1 Monocytes % 11.8 Eosinophils % 2.0 Basophils % 0.8 Nucleated RBC % (0.0-0.3) % 0.0 Absolute Neutrophils (1.2-6.7) 10^3/uL 2.71 Absolute Lymphocytes (1.2-3.4) 10^3/uL 1.48 Absolute Monocytes (0.1-0.8) 10^3/uL 0.58 Absolute Eosinophils (0.0-0.7) 10^3/uL 0.10 Absolute Basophils (0.0-0.2) 10^3/uL 0.04
[2022-04-16 12:22] LABS: ALT 29 U/L (16-63); AST 22 U/L (15-37); Alkaline Phosphatase 60 U/L (46-116); Anion Gap 6.7 mmol/L (3-11); BUN 14 mg/dL (7-18); Bilirubin, Total 0.8 mg/dL (0.2-1.0); CO2 28.3 mmol/L (21.0-32.0); Calcium 8.8 mg/dL (8.5-10.1); Chloride 109 mmol/L (98-107); Glucose 83 mg/dL (74-106); Magnesium 1.7 mg/dL (1.8-2.4); Potassium 3.8 mmol/L (3.5-5.1); Sodium 144 mmol/L (136-145); Total Protein 6.7 g/dL (6.4-8.2); Troponin I < 50 ng/L (<or=60)
[2022-04-16 12:26] LABS: Bilirubin Negative (Negative); Blood Negative (Negative); Clarity Clear (Clear); Glucose Negative (Negative); Ketones Negative (Negative); Leukocyte Esterase Negative (Negative); Nitrite Negative (Negative); Urobilinogen 0.2 EU/dL (Up TO 0.2); pH 6.5 (5-8)
[2022-04-16 12:38] LABS: *AMPHETAMINES SCREEN URINE Negative (Negative); *BARBITURATES SCREEN URINE Negative (Negative); *BENZODIAZEPINES SCREEN URINE Negative (Negative); Cannabinoids THC Negative (Negative); Cocaine Screen,Urine Negative (Negative); METHADONE URINE SCREEN Negative (Negative); OPIATES URINE SCREEN Negative (Negative)
[2022-04-16 12:39] LABS: Tricyclic Antidepressants Negative (Negative)
[2022-04-16 13:22] VITALS: BP 110/68; PULSE 60; TEMP 36.1; O2SAT 99
--- NOTE | 2022-04-16 13:24 | DI.VRAD_ITS ---
PROCEDURE INFORMATION: Exam: XR Chest Exam date and time: 04/16/2022 1:09 PM Age: 36 years old Clinical indication: Shortness of breath TECHNIQUE: Imaging protocol: Radiologic exam of the chest. Views: 2 views. COMPARISON: CR XR CHEST 2V PA LATERAL 22/12/2021 18:54 FINDINGS: Lungs: Unremarkable. No consolidation. Pleural spaces: Unremarkable. No pleural effusion. No pneumothorax. Heart/Mediastinum: Unremarkable. No cardiomegaly. Bones/joints: Unremarkable for patient's age. IMPRESSION: No acute cardiopulmonary findings. Dictated and Authenticated by: Lucie Crystal MD. Ordering:TYE Brewer MD
--- NOTE | 2022-04-16 13:34 | DI.VRAD_ITS ---
PROCEDURE INFORMATION: Exam: CT Head Without Contrast Exam date and time: 04/16/2022 1:02 PM Age: 36 years old Clinical indication: Other: Left sided numbness and tingling TECHNIQUE: Imaging protocol: Computed tomography of the head without contrast. Radiation optimization: All CT scans at this facility use at least one of these dose optimization techniques: automated exposure control; mA and/or kV adjustment per patient size (includes targeted exams where dose is matched to clinical indication); or iterative reconstruction. COMPARISON: MRI - BRAIN WO CONTRAST 01/05/2017 5:42 PM FINDINGS: Brain: The cerebral sulci and the ventricles are within normal limits. There is no evidence of acute hemorrhage, mass or shift. There is no evidence of an acute cortical or major vascular territory infarct. No abnormal extra-axial collections are identified. Cerebral ventricles: No significant ventricular enlargement/hydrocephalus. Paranasal sinuses: No significant sinus opacification or fluid level Mastoid air cells: No significant mastoid opacification Bones/joints: There is no acute bony abnormality Soft tissues: Subcutaneous soft tissues are unremarkable IMPRESSION: No acute findings. PROCEDURE INFORMATION: Exam: CT Cervical Spine Without Contrast Exam date and time: 04/16/2022 1:02 PM Age: 36 years old Clinical indication: Other: Left sided numbness and tingling TECHNIQUE: Imaging protocol: Computed tomography of the cervical spine without contrast. Radiation optimization: All CT scans at this facility use at least one of these dose optimization techniques: automated exposure control; mA and/or kV adjustment per patient size (includes targeted exams where dose is matched to clinical indication); or iterative reconstruction. COMPARISON: CT CHEST PE ABD PELVIS W 01/13/2021 11:16 PM FINDINGS: Bones/joints: There is mild straightening of the cervical lordosis which may be positional or due to spasm. Bony mineralization is within normal limits. There is no evidence of an acute fracture. There is no decrease of vertebral body height. There is no acute or destructive bony abnormality. Discs/Spinal canal/Neural foramina: There is a minimal disc bulge or right paracentral protrusion noted at C3-C4. There is no high-grade central stenosis or cord compression identified by CT examination. The foramina appear patent at all visualized levels. Lungs: Visualized lung apices are clear Thyroid: There is a small nonspecific nodule within the thyroid gland approximately 8 mm in diameter on series 11, image 56. Lymph nodes: There are small shotty bilateral cervical nodes likely reactive. Soft tissues: There is no evidence of a discrete soft tissue mass in the neck IMPRESSION: 1. No acute findings. 2. Minimal bulge or protrusion at C3-C4.If further evaluation of the intervertebral discs, canal, cord, foramina is indicated MR correlation recommended. Dictated and Authenticated by: Rosario Medel MD. Ordering:TYE Brewer MD
[2022-04-16] MEDS: Magnesium Oxide 400 MG TAB PO (13:39)
[2022-04-16 13:58] VITALS: RESP 16
[2022-04-16 15:31] LABS: TSH (W/Ref FT4) 0.84 uIU/mL (0.36-3.74)
--- NOTE | 2022-04-17 00:59 | NUR.NOTE ---
Referral faxed to [facility] Leda Briggs to f/u within a week for weakness, numbness, thyroid nodule.Nursing Note:
[2022-04-18 11:15] LABS: Lyme Ab w Rflx to Lyme Confirm Positive (Negative)
[2022-04-18 12:24] LABS: Lyme IgG Ab Negative (Negative); Lyme IgM Ab Negative (Negative)
[2022-04-18 23:49] LABS: Anaplasma phagocytophilum Negative (Negative); B. miyamotoi PCR Negative (Negative); Babesia divergens/MO-1 Negative (Negative); Babesia duncani Negative (Negative); Babesia microti Negative (Negative); Ehrlichia chaffeensis Negative (Negative); Ehrlichia ewingii/canis Negative (Negative); Ehrlichia muris eauclairensis Negative (Negative)
== END 2022-04-16 13:58 | disposition home or self-care (01) ==
PROVIDERS: Emergency Provider Registered Nurse Emergency; PCP Nurse Practitioner Family
DX: R20.2 Paresthesia of skin (principal); M25.522 Pain in left elbow; M25.562 Pain in left knee; R06.02 Shortness of breath; E04.1 Nontoxic single thyroid nodule; S80.262A Insect bite (nonvenomous), left knee, initial encounter; W57.XXXA Bitten or stung by nonvenomous insect and other nonvenomous arthropods, initial encounter; M50.31 Other cervical disc degeneration, high cervical region
CPT/HCPCS: 80053; 80307; 86617; 87798; 93005; 99285; 70450; 71046; 72125; 81003; 83735; 84443; 84484; 85025; 86618; 93010; 99284

== ENCOUNTER → 2022-05-09 01:29 | Outpatient (CLI) | payer MEDICAID, SELFPAY ==
--- NOTE | 2022-05-09 10:33 | DI.MRI_ITS ---
Exam(s) MR CERVICAL SPINE WO EXAM: MR CERVICAL SPINE WO CLINICAL HISTORY: THYROID NODULE E04.1 DEGENERATIVE DISC DISEASE W/ RADICULOPATHY M50.10 TECHNIQUE: Multiplanar multisequence MRI of the cervical spine was performed without intravenous con trast. COMPARISON: CT CT HEAD CERVICAL SPINE WO from 04/16/2022 FINDINGS: BONES: Vertebral body heights are maintained. Intervertebral disc spaces are normal. Alignment is nor mal. Bone marrow signal intensity is within normal limits. CERVICAL CORD: Craniovertebral junction is unremarkable. The cervical cord is normal size and signal intensity. SOFT TISSUES: Unremarkable. C2-3: No disc herniation or bulge is identified. No significant central spinal canal or neural forami nal stenosis. C3-4: There is a small central disc herniation at C3-C4. No impingement on the spinal cord or neural foramen is noted. No significant central spinal canal or neural foraminal stenosis C4-5: No disc herniation or bulge is identified. No significant central spinal canal or neural forami nal stenosis C5-6: No disc herniation or bulge is identified. No significant central spinal canal or neural forami nal stenosis C6-7: No disc herniation or bulge is identified. No significant central spinal canal or neural forami nal stenosis C7-T1: No disc herniation or bulge is identified. No significant central spinal canal or neural eber inal stenosis IMPRESSION: There is a small central disc herniation at C3-C4. No central spinal canal or neural foraminal steno sis results. DATA REPOSITORY:
== END ==
PROVIDERS: PCP Nurse Practitioner Family; Visit Provider Nurse Practitioner Family
DX: E04.1 Nontoxic single thyroid nodule (principal); M50.11 Cervical disc disorder with radiculopathy, high cervical region
CPT/HCPCS: 72141

== ENCOUNTER → 2022-06-02 00:10 | Outpatient (CLI) | payer MEDICAID, SELFPAY ==
--- NOTE | 2022-06-02 | DI.US_ITS ---
Exam(s) US THYROID EXAM: US THYROID CLINICAL HISTORY: THYROID NODULE, E04.1. TECHNIQUE: Ultrasound thyroid performed using standard protocol. COMPARISON: No exams were available for comparison FINDINGS: ISTHMUS: 4.3 mm RIGHT LOBE: Size: 4.8 x 1.9 x 1.4 cm Echogenicity: Normal. Vascularity: Normal. Nodules: There is a 1 x 0.7 x 0.9 cm solid isoechoic nodule. It is not taller than wide. It has smo oth margins and no echogenic foci. It is consistent with a TI rads level 3 nodule. Based on its siz e no follow-up is recommended. LEFT LOBE: Size: 4.6 x 1.4 x 1.5 cm Echogenicity: Normal. Vascularity: Normal. Nodules: None. OTHER FINDINGS: None. IMPRESSION: No nodules are seen in the thyroid gland to warrant follow-up or FNA. DATA REPOSITORY:
== END ==
PROVIDERS: PCP Nurse Practitioner Family; Visit Provider Nurse Practitioner Family
DX: E04.1 Nontoxic single thyroid nodule (principal)
CPT/HCPCS: 76536

== ENCOUNTER 2022-07-17 16:03 | Emergency (ER) | payer MEDICAID, SELFPAY ==
--- NOTE | 2022-07-17 16:00 | RT.EKG_ITS ---
APPROVED REPORT Exam: Resting ECG Reason for Exam: confusion Patient Location: E HR:65 bpm ECG Measurements Heart Rate 65 AXIS MO 149 P 68 QRSd 89 QRS 61 QT 377 T 49 QTc 392 Conclusion Sinus rhythm...normal P axis, V-rate 60- 99 Probable left atrial enlargement...P >50mS, <-0.10mV V1
[2022-07-17 16:08] VITALS: BP 133/75; PULSE 73; RESP 16; TEMP 36.6
--- NOTE | 2022-07-17 16:44 | ED.GENADUL_ITS ---
Discharge Plan Disposition Patient Disposition: HOME Condition: Improving Discharge Details Clinical Impression: Paresthesias Primary Care Provider: Leda Briggs ED Provider: Axel Harris Home Meds and New Rx's Prescriptions: Continued lorazepam 0.5 mg tablet 0.5 mg PO PRN PRN Label Comments: TAKE 1 TABLET BY MOUTH EVERY DAY NEEDED FOR PANIC ATTACKS Vyvanse 30 mg capsule 30 cap PO DAILY Label Comments: TAKE ONE CAPSULE BY MOUTH EVERY MORNING Discharge Instructions Instructions: Paresthesia (ED) Additional Instructions: Work-up in the ER does not reveal any obvious emergent process. As we discussed your symptoms certainly could be related to the medication change but I cannot prove this with blood work. Please watch for new or worsening symptoms and return to the ER for any concerns. Lastly, please contact your primary care provider tomorrow to make the aware of your ER visit, discuss your medications, and set up outpatient reevaluation. Discharge Data Discharge Date/Time-TO BE ENTERED AT DEPARTURE: 07/17/22 18:52 Medical Decision Making This is a 37-year-old gentleman with past medical history of anxiety, depression, migraines, reports currently being worked up for potential ADHD and/or bipolar disorder, medication changed 5 days ago from Ritalin to Vyvanse and states he has not felt well since then, increased anxiety, today began having paresthesias in both of his hands and feet. Patient states a similar episode back in March. He denies recent illness or trauma. Triage note reported shortness of breath but he denies this to me whatsoever. Clinically he appears well, nontoxic, neurologically intact, hemodynamically stable. I reviewed his record in March and at that time he had both a head and C-spine CT. I do not believe it is indicated to repeat this today. Plan is to provide him 1 mg p.o. Ativan, he has not taken any today. Will obtain EKG, routine screening laboratory values and reassess. When reviewing the side effects of Vyvanse certainly his symptoms fall into the potential side effects; however, he did have symptoms like this back in March prior to any medication change. Patient given 1 mg p.o. Ativan, reports his symptoms are improving but have not resolved completely. Laboratory values imaging, EKG, all reveal no obvious emergent process. Patient remains hemodynamically stable. He remains neurologically intact. At this time I do not believe that further work-up in the ER is warranted. Patient continues to be concerned regarding taking his Vyvanse. He typically takes the dose of medication in the morning. Plan is to contact the office of his PCP prior to taking the medication to get their recommendations and discuss outpatient follow-up. Standard discharge and return precautions were provided. Patient understands, is agreeable to this plan, and has no additional questions or concerns upon discharge. This documentation was generated using [employer]ation system, please disregard any oddities of phrase or misspellings. Medical Records Medical records reviewed: Yes I reviewed the patient's medical records. Imaging Data Radiologic Study: Attestation: I personally reviewed and interpreted this imaging study as follows: Imaging: X-Ray Radiologist's impression: PROCEDURE INFORMATION: Exam: XR Chest Exam date and time: 07/17/2022 6:09 PM Age: 37 years old Clinical indication: Other: Paresthesias TECHNIQUE: Imaging protocol: Radiologic exam of the chest. Views: 1 view. COMPARISON: CR XR CHEST 2V PA LATERAL 04/16/2022 1:09 PM FINDINGS: Lungs: Unremarkable. No consolidation. Pleural spaces: Unremarkable. No pleural effusion. No pneumothorax. Heart/Mediastinum: Unremarkable. No cardiomegaly. Bones/joints: Unremarkable. IMPRESSION: No acute findings. Lab Data Lab results reviewed: Yes I reviewed the patient's lab results. Labs: PROCEDURE INFORMATION: Exam: XR Chest Exam date and time: 07/17/2022 6:09 PM Age: 37 years old Clinical indication: Other: Paresthesias TECHNIQUE: Imaging protocol: Radiologic exam of the chest. Views: 1 view. COMPARISON: CR XR CHEST 2V PA LATERAL 04/16/2022 1:09 PM FINDINGS: Lungs: Unremarkable. No consolidation. Pleural spaces: Unremarkable. No pleural effusion. No pneumothorax. Heart/Mediastinum: Unremarkable. No cardiomegaly. Bones/joints: Unremarkable. IMPRESSION: No acute findings. ECG Data Attestation: I personally reviewed and interpreted this ECG (s) as follows: Interpretation: Sinus rhythm, ventricular rate 65, no STEMI. HPI General Mode of arrival: ambulatory . Date/Time Provider Initiated Documentation: 07/17/22 16:13 . Limitations to Documentation: no limitations . Information obtained by: patient . HPI Narrative: This is a 37-year-old male with a past medical history that includes migraine headaches, anxiety, working through potential ADHD versus bipolar disorder, currently had his Ritalin discontinued 5 days ago and initiated on Vyvanse, presenting to the ER today reporting paresthesias in his hands and feet and simply not feeling himself, like a head fog. Patient reports a history of anxiety but reports that he has nothing to be anxious about at the time triage note reported shortness of breath but patient adamantly declines this to me. He denies recent illness or trauma, headache, visual changes. He reports chronic neck pain for which she sees physical therapy. He denies chest pain, shortness of breath, cough, wheezing, abdominal pain, nausea, vomiting, focal weakness. He denies change in bladder function. Reports occasional diarrhea. Patient states that the symptoms were somewhat similar to his anxiety back in March but they have lasted longer today. Patient reports that he has not felt well since the medication change. He states that he was able to not require taking any Ativan for nearly 2 weeks but has required taking a milligram of Ativan each night the past 2 nights because of anxiety attacks. Related Data Home Medications Medication Instructions Recorded Confirmed lorazepam 0.5 mg tablet 0.5 mg PO PRN PRN 02/11/22 07/17/22 lisdexamfetamine 30 mg capsule 30 cap PO DAILY 07/17/22 07/17/22 (Vyvanse) Allergies Allergy/AdvReac Type Severity Reaction Status Date / Time aspirin AdvReac Intermediate Unverified 07/17/22 18:07 General Stated Complaint: GenMedical FABY: 3 Review of Systems Constitutional Constitutional: Denies fatigue, Denies fever(s), Reports headache(s) (Migraines, not currently) and Denies weakness Eyes Eyes: Denies change in vision ENT Ears, Nose, Mouth, and Throat: Reports headache(s) (Migraines, not currently) and Reports neck pain (Chronic) Cardiovascular Cardiovascular: Denies chest pain and Denies dyspnea Respiratory Respiratory: Denies cough and Denies dyspnea Gastrointestinal Gastrointestinal: Denies abdominal pain, Reports diarrhea (Occasional), Denies nausea and Denies vomiting Genitourinary Genitourinary: Denies dysuria Musculoskeletal Musculoskeletal: Reports back pain (Low, chronic), Reports neck pain (Chronic), Denies numbness and Reports tingling Integumentary/Breasts Skin/Breast: Denies rash Neurologic Neurologic: Reports headache(s) (Migraines, not currently), Denies numbness, Reports tingling and Denies weakness Psychiatric Psychiatric: Reports anxiety and Reports depression Endocrine Endocrine: Denies fatigue PFSH All Active Problems (Updated 07/17/22 @ 18:45 by TATIANA Hobbs) Paresthesias (Acute) Acute appendicitis (Acute) Acute appendicitis (Acute) Finger laceration (Acute) Abdominal pain (Acute) Migraine headache without aura (Acute) Adverse reaction to antidepressant drug (Acute) Chest pain (Acute) Shortness of breath (Acute) Twitching (Acute) Medical History Acute angle-closure glaucoma Chronic lower back pain History of depression Muscle spasm Tobacco dependence Surgical History History of hernia repair History of knee surgery History of surgery on wrist S/P laparoscopic appendectomy (~06/01/21) Social History Smoking/Tobacco Use Status: Current every day Tobacco Type: cigarettes Smoking risk assessment performed?: Yes Alcohol Intake: never Drug use: Never Substance use type: does not use Household members: spouse Housing: house Number of Children: 3 Pets and animals: Yes Pets and animals: cat(s), dog(s) and bird(s) What is your relationship status?: Panel score (0-1 are the most socially isolated patients): 1 What type of physical activity do you participate in: walking Seatbelt use: always Do you feel safe at home: Yes Do you feel safe in your relationship?: Yes Exam Const General: cooperative, healthy appearing, comfortable and no acute distress Orientation: alert, awake and oriented x3 HENMT Head: normal to inspection, normocephalic and atraumatic Face and sinus: normal facial exam Mouth: moist mucous membranes Eyes General: appearance normal, both eyes and all related structures Conjunctivae: conjunctivae normal Neck Neck: normal visual inspection, full ROM, no meningeal signs, trachea midline and supple Resp Effort & Inspection: normal respiratory effort and able to speak in complete sentences Auscultation: clear to auscultation bilaterally Cardio Rate: regular rate Rhythm: regular rhythm GI Palpation: soft and nontender Back/Spine/Pelvis Back: No back tenderness Skin General skin exam: no rashes or lesions noted Neuro General: patient alert, patient awake, patient oriented x3, moves all extremities and no focal motor deficits Cranial Nerves: CN's II-XI intact bilaterally Cognition: normal cognition Speech: speech normal Gait: normal gait Motor: muscle tone normal throughout, strength 5/5 throughout, no movement abnormalities noted and no fasciculations Sensory Exam: no sensory deficits noted Extrem General: normal to inspection, full ROM, capillary refill normal, no pedal edema and no calf tenderness Psych Appearance: grossly normal Mental Status: mental status grossly normal Course Vital Signs Vital signs: Vital Signs Temperature 36.6 C 07/17/22 16:08 Pulse 73 07/17/22 16:08 Respiratory Rate 16 07/17/22 16:08 Blood Pressure 133/75 07/17/22 16:08 Temperature 36.6 C 07/17/22 16:08 Temperature Source Skin 07/17/22 16:08 Pulse 73 07/17/22 16:08 Respiratory Rate 16 07/17/22 16:08 Respiratory Effort 07/17/22 16:12 Blood Pressure 133/75 07/17/22 16:08 Blood Pressure Position Sitting 07/17/22 16:08 Oxygen Delivery Method Room Air 07/17/22 16:08 Oxygen Flow Rate 0 07/17/22 16:08 Pain Level 1 07/17/22 16:08
--- NOTE | 2022-07-17 16:45 | DI.RAD_ITS ---
Exam(s) XR PORTABLE CHEST AP EXAM: XR PORTABLE CHEST AP CLINICAL HISTORY: paresthesias. TECHNIQUE: 2D digital imaging was performed. COMPARISON: CR,XR XR CHEST 2V PA LATERAL from 04/16/2022 FINDINGS: Single AP portable view. Heart size is upper normal. The mediastinum is not widened. Lungs are clear. No infiltrates nor obvious pleural effusions. IMPRESSION: No acute pulmonary findings on this single AP portable view of the chest. DATA REPOSITORY: RADIATION DOSE DELIVERED: All CT scans at this facility use at least one of these dose optimization techniques: automated exposure control; mA and/or kV adjustment per patient size (includes targeted e xams where dose is matched to clinical indication); or iterative reconstruction.
[2022-07-17] MEDS: LORazepam 1 MG TAB PO (17:29)
[2022-07-17 17:40] LABS: Abs Immature Grans 0.02 10^3/uL (0.0-0.06); Absolute Basophil Count 0.05 10^3/uL (0.0-0.2); Absolute Eosinophil Count 0.19 10^3/uL (0.0-0.7); Absolute Lymphocyte Count 1.53 10^3/uL (1.2-3.4); Absolute Monocyte Count 0.64 10^3/uL (0.1-0.8); Absolute Neutrophil Count 4.65 10^3/uL (1.2-6.7); Basophils % 0.7; Eosinophils % 2.7; HCT 46.8 % (40.0-50.0); HGB 16.5 g/dL (13.5-17.5); Immature Grans % 0.3; Lymphocytes % 21.6; MCHC 35.3 % (32.0-36.0); MCV 88 fL (80-95); MPV 9.1 fL (8.0-11.0); Neutrophils % 65.7; Platelet Count 300 10^3/uL (130-400); RBC 5.32 10^6/uL (4.36-5.78); RDW 11.6 % (11.8-14.1); RDW-SD 37.1 fL; WBC 7.08 10^3/uL (4.4-10.8)
[2022-07-17 17:58] LABS: ALT 27 U/L (16-63); AST 18 U/L (15-37); Albumin 4.3 g/dL (3.4-5.0); Alkaline Phosphatase 83 U/L (46-116); Anion Gap 6.7 mmol/L (3-11); BUN 12 mg/dL (7-18); Bilirubin, Total 0.6 mg/dL (0.2-1.0); CO2 30.3 mmol/L (21.0-32.0); CREATININE 1.1 mg/dL (0.70-1.30); Calcium 9.1 mg/dL (8.5-10.1); Chloride 104 mmol/L (98-107); Estimated GFR 88.67 (mL/min/1.73m2); Glucose 88 mg/dL (74-106); Potassium 4.1 mmol/L (3.5-5.1); Sodium 141 mmol/L (136-145); Total Protein 7.8 g/dL (6.4-8.2); Troponin I < 50 ng/L (<or=60)
[2022-07-17 18:04] VITALS: RESP 17
--- NOTE | 2022-07-17 18:34 | DI.VRAD_ITS ---
PROCEDURE INFORMATION: Exam: XR Chest Exam date and time: 07/17/2022 6:09 PM Age: 37 years old Clinical indication: Other: Paresthesias TECHNIQUE: Imaging protocol: Radiologic exam of the chest. Views: 1 view. COMPARISON: CR XR CHEST 2V PA LATERAL 04/16/2022 1:09 PM FINDINGS: Lungs: Unremarkable. No consolidation. Pleural spaces: Unremarkable. No pleural effusion. No pneumothorax. Heart/Mediastinum: Unremarkable. No cardiomegaly. Bones/joints: Unremarkable. IMPRESSION: No acute findings. Dictated and Authenticated by: Leon Cabrera MD. Ordering:YVETTE Reyna MD
== END 2022-07-17 18:52 | disposition home or self-care (01) ==
PROVIDERS: Emergency Provider Physician Assistant; PCP Nurse Practitioner Family
DX: R20.2 Paresthesia of skin (principal); F41.9 Anxiety disorder, unspecified; F17.210 Nicotine dependence, cigarettes, uncomplicated
CPT/HCPCS: 36415; 80053; 93005; 99284; 71045; 83735; 84484; 85025; 93010

== ENCOUNTER 2022-07-18 13:18 | Outpatient (REF) | payer MEDICAID, SELFPAY ==
[2022-07-18 16:16] LABS: C-Reactive Protein 0.06 mg/dL (0.0-0.3); Vitamin B12 676 pg/mL (193-986)
[2022-07-19 10:11] LABS: Syphilis Serology (RPR) Negative (Negative)
== END 2022-07-18 13:19 | disposition home or self-care (01) ==
LOC: NCHCN 13:18
PROVIDERS: PCP Nurse Practitioner Family; Visit Provider Family Medicine
DX: E83.42 Hypomagnesemia (principal); G62.89 Other specified polyneuropathies; Z11.3 Encounter for screening for infections with a predominantly sexual mode of transmission
CPT/HCPCS: 82607; 83735; 86140; 86592

== ENCOUNTER 2022-07-18 15:44 | Emergency (ER) | payer MEDICAID, SELFPAY ==
[2022-07-18 15:45] VITALS: BP 124/73; PULSE 92; RESP 16; TEMP 37.1; O2SAT 99
--- NOTE | 2022-07-18 17:05 | ED.GENADUL_ITS ---
Discharge Plan Disposition Patient Disposition: HOME Condition: Stable Discharge Details Clinical Impression: Paresthesias Primary Care Provider: Leda Briggs ED Provider: Axel Harris Home Meds and New Rx's Prescriptions: Continued lorazepam 0.5 mg tablet 0.5 mg PO PRN PRN Label Comments: TAKE 1 TABLET BY MOUTH EVERY DAY NEEDED FOR PANIC ATTACKS Vyvanse 30 mg capsule 30 cap PO DAILY Label Comments: TAKE ONE CAPSULE BY MOUTH EVERY MORNING Discharge Instructions Instructions: Paresthesia (ED) Additional Instructions: At this time unfortunately I am unable to obtain any emergent MRI here from the ER as it is after business hours. I personally called your new PCP, Dr. Vigil to make them aware of this. He states that he is in the process of trying to obtain even urgent outpatient MRI for further evaluation of the ongoing symptoms. In the meantime you could certainly wear a soft collar, it appears as though you bought a collar off of [employer] and has had symptomatic relief with this, please wear as tolerated. As we discussed, please watch for new or wo rsening symptoms such as fever, headache, visual changes, loss of bowel or bladder function, focal weakness, etc. please return immediately to the ER. Discharge Data Discharge Date/Time-TO BE ENTERED AT DEPARTURE: 07/18/22 17:18 Medical Decision Making Patient presents in the hopes of obtaining MRI of his cervical spine. Unfortunately it is after hours and we do not have the capability to obtain this. I see no acute neurological deficit, examination is unchanged from yesterday, I do not believe that he requires emergent transfer to a facility with MRI capabilities. I was able to speak with Dr. Vigil. He is obtaining a urgent outpatient MRI cervical spine without and with contrast. He feels as though if the patient is neurologically intact here in the ER then emergent MRI is not indicated at this time. Unfortunately we cannot obtain MRI after hours here in the ER. He is comfortable following the patient and being sure that this gets done in a timely fashion as an outpatient. He does state that we could add on a cervical collar. I discussed this plan with the patient. Patient states that he actually bought a collar [id number] that does help with his discomfort. He understands that we are not obtaining an MRI at this time and he will continue to work with his PCP to get this done in a timely fashion as an outpatient. Strict discharge and return precautions were provided. Patient understands, is agreeable to this plan, and has no additional questions or concerns upon discharge. This documentation was generated using [employer] dictation system, please disregard any oddities of phrase or misspellings. Medical Records Medical records reviewed: Yes I reviewed the patient's medical records. HPI General Mode of arrival: ambulatory . Date/Time Provider Initiated Documentation: 07/18/22 15:51 . Limitations to Documentation: no limitations . Information obtained by: patient . HPI Narrative: This is a 37-year-old gentleman who presents to the ER hoping to obtain an MRI of his cervical spine. Patient was seen in the ER yesterday for paresthesias in his hands and legs, had recently had a medication change, and had a similar episode back in March. At that time he had a CT of his head and C-spine and subsequent outpatient MRI. Patient followed up with his PCP today, plan was to obtain an MRI with and without contrast of the cervical spine for a cervical myelitis work-up as well as outpatient laboratory values. Patient went home, was resting, and then upon waking felt as though the tingling in his hands and feet were slightly worse extending up just superior to his ankles and toward his wrist. Given his symptoms were worse he follow the directions of his primary care provider and came to the ER. He denies recent illness or trauma, headache, visual changes, current neck pain, fever, chest pain, shortness of breath, change of bowel or bladder function. Related Data Home Medications Medication Instructions Recorded Confirmed lorazepam 0.5 mg tablet 0.5 mg PO PRN PRN 02/11/22 07/18/22 lisdexamfetamine 30 mg capsule 30 cap PO DAILY 07/17/22 07/17/22 (Vyvanse) Allergies Allergy/AdvReac Type Severity Reaction Status Date / Time aspirin AdvReac Intermediate Unverified 07/18/22 15:48 General Stated Complaint: Vascular FABY: 3 Review of Systems Constitutional Constitutional: Denies fever(s), Denies headache(s) and Denies weakness Eyes Eyes: Denies change in vision ENT Ears, Nose, Mouth, and Throat: Denies headache(s) and Denies neck pain Cardiovascular Cardiovascular: Denies chest pain and Denies dyspnea Respiratory Respiratory: Denies dyspnea Gastrointestinal Gastrointestinal: Denies abdominal pain, Denies fecal incontinence, Denies nausea and Denies vomiting Genitourinary Genitourinary: Denies urinary incontinence Musculoskeletal Musculoskeletal: Denies neck pain, Denies numbness, Denies stiffness and Reports tingling Integumentary/Breasts Skin/Breast: Denies rash Neurologic Neurologic: Denies headache(s), Denies numbness, Reports tingling and Denies weakness PFSH All Active Problems Paresthesias (Acute) Acute appendicitis (Acute) Acute appendicitis (Acute) Finger laceration (Acute) Abdominal pain (Acute) Migraine headache without aura (Acute) Adverse reaction to antidepressant drug (Acute) Chest pain (Acute) Shortness of breath (Acute) Twitching (Acute) Medical History Acute angle-closure glaucoma Chronic lower back pain History of depression Muscle spasm Tobacco dependence Surgical History History of hernia repair History of knee surgery History of surgery on wrist S/P laparoscopic appendectomy (~06/01/21) Social History Smoking/Tobacco Use Status: Current every day Tobacco Type: cigarettes Smoking risk assessment performed?: Yes Alcohol Intake: never Drug use: Never Substance use type: does not use Household members: spouse Housing: house Number of Children: 3 Pets and animals: Yes Pets and animals: cat(s), dog(s) and bird(s) What is your relationship status?: Panel score (0-1 are the most socially isolated patients): 1 What type of physical activity do you participate in: walking Seatbelt use: always Do you feel safe at home: Yes Do you feel safe in your relationship?: Yes Exam Const General: cooperative, healthy appearing, comfortable and no acute distress Orientation: alert, awake and oriented x3 HENMT Head: normal to inspection, normocephalic and atraumatic Eyes General: appearance normal, both eyes and all related structures Conjunctivae: conjunctivae normal Neck Neck: normal visual inspection, full ROM, no meningeal signs, trachea midline, supple and nontender Resp Effort & Inspection: normal respiratory effort and able to speak in complete sentences Skin General skin exam: no rashes or lesions noted Neuro General: patient alert, patient awake, patient oriented x3, moves all extremities and no focal motor deficits Cognition: normal cognition Speech: speech normal Gait: normal gait Motor: muscle tone normal throughout, strength 5/5 throughout, no movement abnormalities noted and no fasciculations Sensory Exam: no sensory deficits noted Extrem General: normal to inspection, full ROM, capillary refill normal, no pedal edema and no calf tenderness Psych Appearance: grossly normal Mental Status: mental status grossly normal Course Vital Signs Vital signs: Vital Signs Temperature 37.1 C 07/18/22 15:45 Pulse 92 H 07/18/22 15:45 Respiratory Rate 16 07/18/22 15:45 Blood Pressure 124/73 07/18/22 15:45 Pulse Oximetry 99 07/18/22 15:45 Temperature 37.1 C 07/18/22 15:45 Pulse 92 H 07/18/22 15:45 Respiratory Rate 16 07/18/22 15:45 Respiratory Effort 07/18/22 15:48 Respiratory Depth Normal 07/18/22 15:48 Respiratory Pattern Normal 07/18/22 15:48 Blood Pressure 124/73 07/18/22 15:45 Pulse Oximetry 99 07/18/22 15:45
[2022-07-18 17:12] VITALS: PULSE 74; RESP 14; O2SAT 98
--- NOTE | 2022-07-19 09:09 | NUR.NOTE ---
Nursing Note: Patient presented to [facility] stating that he was told to return for emergent MRI. I spoke with Dr Blayne Villalba about this, he reviewed Dayana Harris's note and spoke with Dr Vigil regarding patient. Dr Blayne Villalba spoke with patient and he elected to not book in to the ED.
== END 2022-07-18 17:18 | disposition home or self-care (01) ==
PROVIDERS: Emergency Provider Physician Assistant; PCP Nurse Practitioner Family
DX: R20.2 Paresthesia of skin (principal); F17.210 Nicotine dependence, cigarettes, uncomplicated
CPT/HCPCS: 99281

== ENCOUNTER 2022-07-25 13:37 | Outpatient (REF) | payer MEDICAID, SELFPAY ==
[2022-07-25 12:08] LABS: C Diff PCR Negative (Negative)
[2022-07-25 22:21] LABS: Campylobacter PCR Negative (Negative); Salmonella PCR Negative (Negative); Shiga Toxin PCR Negative (Negative); Shigella/Enteroinvasive Ecoli Negative (Negative)
== END 2022-07-25 13:38 | disposition home or self-care (01) ==
LOC: LBN 13:37
PROVIDERS: PCP Nurse Practitioner Family; Visit Provider Registered Nurse
DX: R19.7 Diarrhea, unspecified (principal)
CPT/HCPCS: 87329; 87493; 87505

== ENCOUNTER → 2022-08-01 00:32 | Outpatient (CLI) | payer MEDICAID, SELFPAY ==
[2022-08-01] MEDS: Normal Saline Flush 10 ML SYR IVP (13:43)
--- NOTE | 2022-08-01 13:45 | DI.MRI_ITS ---
Exam(s) MR CERVICAL SPINE WO/W EXAM: MR CERVICAL SPINE WO/W CLINICAL HISTORY: CERVICAL DISC DISORDER W/MYELOPATHY, M50.00, DDD W/RADICULOPATHY, M50.10 TECHNIQUE: Multiplanar multisequence MRI of the cervical spine was performed both pre and post contr ast infused sequences. Contrast infused was 13 mL Dotarem. COMPARISON: MR MR CERVICAL SPINE WO from 05/09/2022 FINDINGS: CERVICOMEDULLARY JUNCTION: Intact with no evidence of cerebellar tonsillar ectopia. No obvious abnor mality of the odontoid process. No evidence of Chiari 1 malformation. CERVICAL SPINAL CORD: There is no abnormal signal in the cervical spinal cord and no evidence of foca l cord atrophy nor focal cord swelling. There is no abnormal enhancement in the cervical spinal cord nor in the epidural space. OSSEOUS:There are no cervical fractures evident. No significant osseous lesions in the cervical vert ebrae. No abnormal intraosseous enhancement. INDIVIDUAL DISC LEVELS: All of the disc spaces exhibit normal height and signal. There is a small central subligamentous gilda ular bulge at C3-4 which is minimal and actually smaller than on the previous study. There is no abn ormal enhancement this level nor in the cervical spinal column. There is no evidence of central spin al canal stenosis. There is also no evidence of foraminal stenosis. There is no prominent facet art hropathy. OTHER: Incidentally noted is a small nodule in the right thyroid lobe measuring 5 x 5 millimeters. T his can be further investigated with outpatient ultrasound if clinically indicated. IMPRESSION: 1. No evidence of significant disc herniation, central spinal canal stenosis, nor foraminal stenosis. 2. The previously described small disc protrusion at C3-4 level described on the April 2022 MRI is act ually less evident on the present study. 3. No abnormal enhancing lesions in the spinal canal, spinal cord, epidural space, nor abnormal intra osseous enhancement. Other findings as above. DATA REPOSITORY:
== END ==
PROVIDERS: PCP Nurse Practitioner Family; Visit Provider Family Medicine
DX: M50.21 Other cervical disc displacement, high cervical region (principal)
CPT/HCPCS: 72156

== ENCOUNTER 2022-08-28 10:33 | Emergency (ER) | payer MEDICAID, SELFPAY ==
[2022-08-28] VITALS (16 sets, daily range): BP systolic 113–136; BP diastolic 67–80; PULSE 55–72; RESP 9–21; TEMP 36.7; O2SAT 96–100
--- NOTE | 2022-08-28 10:30 | RT.EKG_ITS ---
APPROVED REPORT Exam: Resting ECG Reason for Exam: SOB Patient Location: E HR:60 bpm ECG Measurements Heart Rate [address] 151 P 63 QRSd 100 QRS 61 QT 404 T 39 QTc 404 Conclusion Sinus rhythm...normal P axis, V-rate 60- 99 no STEMI, non-diagnostic EKG
--- NOTE | 2022-08-28 10:49 | ED.GENADUL_ITS ---
Discharge Plan Disposition Patient Disposition: HOME Condition: Stable Discharge Details Clinical Impression: Chest pain Primary Care Provider: Leda Briggs ED Provider: Cate Restrepo Discharge Instructions Instructions: Chest Pain (ED) Additional Instructions: Xray and labs are reassuring here today. Please encourage hydration. You may take tylenol and/or ibuprofen as needed for discomfort. Please follow up with primary care in one week for reevaluation. If you develop increased shortness of breath, difficulty breathing or other new/worsening symptoms please seek care urgently with again. Referrals: Leda Briggs [Primary Care Provider] - Discharge Data Discharge Date/Time-TO BE ENTERED AT DEPARTURE: 08/28/22 13:00 Medical Decision Making Patient is a pleasant 37-year-old male presenting with chief complaint of left- sided chest pain that began 3 days ago. He states that the pain is always present. Is not exacerbated by movement or exertion. However, he does states that his pain is positional. He reports that when he lays flat, he has increased discomfort. He has been needing to lay on his left side or slightly more upright. Patient also denies that he has relief from his discomfort when leaning forward. He denies any fevers or chills. States baseline chronic smokers cough. Has had some increased discomfort with deep inhalation. Denies smoking or chills. No increased sputum production. Denies any abdominal pain. No alcohol consumption. Denies illicit drug use. Denies any personal history of ACS. Past family history pertinent for father and brother both have a CVA at young age which was associated with a thrombophilia. He reports that he has been tested for this and it was negative. She denies any trauma. 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 On exam, patient appears nontoxic. Vital signs are nausea medically stable. Lungs are clear, normal cardiac auscultation. No murmurs rubs or gallops, even with positional changes. Abdomen is benign with no left upper quadrant or epigastric discomfort. He has no significant pain elicited with palpation over the affected area. No rashes appreciated. No lower extremity edema, calves are soft and nontender. Patient is PERC negative. No low suspicion for infectious etiology given his symptomatology. Considered ACS but this too, seems less likely as there is no exertional component to it. He has no pain rating into the back or symptoms/exam findings to suggest aortic dissection. This could be associated with muscular injury as he does have significant change in his discomfort with movement. Also considered pericarditis given the fact that the pain worsens when lying flat. EKG was obtained and reviewed by Dr. Katlyn Villalba. Patient is in normal sinus rhythm, no acute ischemic changes noted. Labs reviewed. No leukocytosis. Stable H&H. Troponin within normal limits. ESR and CRP are within normal limits. HEART: Normal size.? Aorta: PULMONARY VASCULATURE: Normal. LUNGS: Clear. ? PLEURAL SPACE: No pleural effusion or pneumothorax. BONE:Unremarkable for age.? IMPRESSION: No acute abnormality.? Discussed the findings with the patient. Given the length of time since the initial onset of this chest discomfort, I do not feel a delta troponin is warranted at this time. Advised that this may be musculoskeletal in nature, particularly given the movement and positional component. Has inflammatory markers are normal, is not consistent with a pericarditis. Encourage hydration. We discussed stretching activities. Advised Tylenol and ibuprofen as needed for discomfort. Encourage follow-up with primary care. Return precautions were discussed. All questions and concerns were addressed HPI General Date/Time Provider Initiated Documentation: 08/28/22 10:45 . Limitations to Documentation: no limitations . Information obtained by: patient and RN notes reviewed . History of Present Illness 37 year old M presents to the emergency department with the chief complaint of chest pain, described as mild, with intensity rated at 3. Quality is described as aching, and is localized to the chest. Patient reports no radiation. Patient started experiencing this day(s) and it has been intermittent. Immobilization improves symptom(s), Movement worsens symptoms . Patient notes chest pain; denies cough, diaphoresis, fever/chills, headaches, loss of appetite, malaise, nausea/vomiting, rash and shortness of breath. Patient did receive the following treatments prior to arrival, none Related Data Allergies Allergy/AdvReac Type Severity Reaction Status Date / Time aspirin AdvReac Intermediate Unverified 08/28/22 10:41 General Stated Complaint: Chest Pain FABY: 2 Review of Systems Constitutional Constitutional: Reports as per HPI, Denies chills, Denies fever(s), Denies headache(s), Denies lethargy and Denies poor appetite ENT Ears, Nose, Mouth, and Throat: Denies headache(s) Cardiovascular Cardiovascular: Reports as per HPI, Denies dyspnea and Denies dyspnea on exertion Respiratory Respiratory: Reports as per HPI, Denies chest congestion, Denies cough, Denies dyspnea and Denies dyspnea on exertion Gastrointestinal Gastrointestinal: Reports as per HPI, Denies abdominal pain, Denies diarrhea, Denies nausea and Denies vomiting Musculoskeletal Musculoskeletal: Reports as per HPI and Denies back pain Integumentary/Breasts Skin/Breast: Reports as per HPI and Denies rash Neurologic Neurologic: Reports as per HPI and Denies headache(s) PFSH All Active Problems (Updated 08/28/22 @ 12:53 by TATIANA Jimenez) Acute appendicitis (Acute) Acute appendicitis (Acute) Finger laceration (Acute) Abdominal pain (Acute) Migraine headache without aura (Acute) Adverse reaction to antidepressant drug (Acute) Chest pain (Acute) Shortness of breath (Acute) Twitching (Acute) Medical History Acute angle-closure glaucoma Chronic lower back pain History of depression Muscle spasm Tobacco dependence Surgical History History of hernia repair History of knee surgery History of surgery on wrist S/P laparoscopic appendectomy (~06/01/21) Social History Smoking/Tobacco Use Status: Current every day Tobacco Type: cigarettes Smoking risk assessment performed?: Yes Alcohol Intake: never Drug use: Never Substance use type: does not use Household members: spouse Housing: house Number of Children: 3 Pets and animals: Yes Pets and animals: cat(s), dog(s) and bird(s) What is your relationship status?: Panel score (0-1 are the most socially isolated patients): 1 What type of physical activity do you participate in: walking Seatbelt use: always Do you feel safe at home: Yes Do you feel safe in your relationship?: Yes Exam Const General: cooperative, healthy appearing, comfortable, no acute distress and well developed Nutritional Appearance: average body habitus and well nourished Orientation: alert, awake and oriented x3 HENMT Head: normal to inspection Ears: hearing grossly normal bilaterally Mouth: moist mucous membranes Chest Chest: normal inspection of the chest, normal palpation of entire chest wall and no crepitus Resp Effort & Inspection: normal respiratory effort, able to speak in complete sentences and no respiratory distress Auscultation: clear to auscultation bilaterally, no rales, no rhonchi and no wheezes Cardio Rate: regular rate Rhythm: regular rhythm Heart Sounds: S1 normal and S2 normal GI Inspection: normal to inspection, no edema and non-distended Palpation: soft, no hepatosplenomegaly, not firm, no guarding, not rigid and nontender Auscultation: normal bowel sounds Back/Spine/Pelvis Back: no CVA tenderness Skin General skin exam: no rashes or lesions noted Trauma: no lacerations or abrasions Neuro General: patient alert, patient awake and patient oriented x3 Cognition: normal cognition Speech: speech normal Gait: normal gait Extrem General: normal to inspection, capillary refill normal, no pedal edema, no calf tenderness and normal gait Psych Appearance: grossly normal and well kempt Mental Status: mental status grossly normal Speech and Movement: speech and movement normal Course Vital Signs Vital signs: Vital Signs Temperature 36.7 C 08/28/22 10:36 Pulse 72 08/28/22 10:36 Respiratory Rate 16 08/28/22 10:36 Blood Pressure 136/80 08/28/22 10:36 Pulse Oximetry 98 08/28/22 10:36 Temperature 36.7 C 08/28/22 10:36 Temperature Source Temporal Artery Scan 08/28/22 10:36 Pulse 72 08/28/22 10:36 Respiratory Rate 16 08/28/22 10:39 Respiratory Effort Short of Breath 08/28/22 10:39 Respiratory Depth Normal 08/28/22 10:39 Respiratory Pattern Normal 08/28/22 10:39 Blood Pressure 136/80 08/28/22 10:36 Pulse Oximetry 98 08/28/22 10:36 Pain Level 2 08/28/22 10:39
--- NOTE | 2022-08-28 11:00 | DI.RAD_ITS ---
Exam(s) XR CHEST 2V PA LATERAL EXAM: XR CHEST 2V PA LATERAL CLINICAL HISTORY: CP TECHNIQUE: 2D digital imaging was performed. COMPARISON: CR,XR XR PORTABLE CHEST AP from 07/17/2022 FINDINGS: HEART: Normal size. Aorta: PULMONARY VASCULATURE: Normal. LUNGS: Clear. PLEURAL SPACE: No pleural effusion or pneumothorax. BONE:Unremarkable for age. IMPRESSION: No acute abnormality. DATA REPOSITORY: RADIATION DOSE DELIVERED:
[2022-08-28 11:09] LABS: Abs Immature Grans 0.01 10^3/uL (0.0-0.06); Absolute Basophil Count 0.06 10^3/uL (0.0-0.2); Absolute Eosinophil Count 0.12 10^3/uL (0.0-0.7); Absolute Lymphocyte Count 1.73 10^3/uL (1.2-3.4); Absolute Monocyte Count 0.62 10^3/uL (0.1-0.8); Absolute Neutrophil Count 3.99 10^3/uL (1.2-6.7); Basophils % 0.9; Eosinophils % 1.8; HCT 45.8 % (40.0-50.0); HGB 15.6 g/dL (13.5-17.5); Immature Grans % 0.2; Lymphocytes % 26.5; MCH 30.5 pg (27.0-33.0); MCHC 34.1 % (32.0-36.0); MCV 90 fL (80-95); MPV 9.3 fL (8.0-11.0); Monocytes % 9.5; Neutrophils % 61.1; Platelet Count 268 10^3/uL (130-400); RBC 5.12 10^6/uL (4.36-5.78); RDW 11.5 % (11.8-14.1); RDW-SD 37.6 fL; WBC 6.53 10^3/uL (4.4-10.8)
[2022-08-28 11:11] LABS: ESR 1 mm/hr (0-15)
[2022-08-28 11:27] LABS: ALT 29 U/L (16-63); AST 24 U/L (15-37); Albumin 4.4 g/dL (3.4-5.0); Alkaline Phosphatase 84 U/L (46-116); Anion Gap 6.9 mmol/L (3-11); BUN 12 mg/dL (7-18); Bilirubin, Total 1.3 mg/dL (0.2-1.0); C-Reactive Protein 0.14 mg/dL (0.0-0.3); CO2 29.1 mmol/L (21.0-32.0); CREATININE 1.1 mg/dL (0.70-1.30); Calcium 9.3 mg/dL (8.5-10.1); Chloride 104 mmol/L (98-107); Estimated GFR 88.67 (mL/min/1.73m2); Glucose 116 mg/dL (74-106); Magnesium 1.8 mg/dL (1.8-2.4); Potassium 3.6 mmol/L (3.5-5.1); Sodium 140 mmol/L (136-145); Total Protein 7.6 g/dL (6.4-8.2); Troponin I < 50 ng/L (<or=60)
[2022-08-28] MEDS: Acetaminophen 325 MG TAB 650 MG PO (12:54)
[2022-08-28] MEDS: Ibuprofen 600 MG TAB PO (12:55)
== END 2022-08-28 13:00 | disposition home or self-care (01) ==
PROVIDERS: Emergency Provider Physician Assistant; PCP Nurse Practitioner Family
DX: R07.9 Chest pain, unspecified (principal); R06.02 Shortness of breath; F17.210 Nicotine dependence, cigarettes, uncomplicated; J41.0 Simple chronic bronchitis
CPT/HCPCS: 36415; 80053; 85652; 93005; 99284; 71046; 83735; 84484; 85025; 86140; 93010; 99283

== ENCOUNTER 2023-01-25 16:50 | Outpatient (REF) | payer MEDICAID, SELFPAY ==
[2023-01-25 20:13] LABS: Calculated LDL 173 mg/dL (<100); Cholesterol 239 mg/dL (<200); HDL Cholesterol 43 mg/dL (40-60); Triglyceride 117 mg/dL (<150)
[2023-01-30 04:41] LABS: Methylphenidate 15 ng/mL (Cutoff: 10); Ritalinic Acid 2242 ng/mL (Cutoff: 50)
== END 2023-01-25 16:51 | disposition home or self-care (01) ==
LOC: NCHCN 16:50
PROVIDERS: PCP Nurse Practitioner Family; Visit Provider Registered Nurse
DX: F41.8 Other specified anxiety disorders (principal); Z79.899 Other long term (current) drug therapy; Z51.81 Encounter for therapeutic drug level monitoring
CPT/HCPCS: 80061; 80360

== ENCOUNTER 2023-03-22 09:42 | Outpatient (REF) | payer MEDICAID, SELFPAY ==
[2023-03-22 19:10] LABS: HCT 46.6 % (40.0-50.0); HGB 15.9 g/dL (13.5-17.5); MCH 31.1 pg (27.0-33.0); MCHC 34.1 % (32.0-36.0); MCV 91 fL (80-95); MPV 9.2 fL (8.0-11.0); Platelet Count 261 10^3/uL (130-400); RBC 5.11 10^6/uL (4.36-5.78); RDW 11.7 % (11.8-14.1); RDW-SD 39.4 fL; WBC 6.02 10^3/uL (4.4-10.8)
[2023-03-22 19:37] LABS: ALT 31 U/L (16-63); AST 21 U/L (15-37); Albumin 4.5 g/dL (3.4-5.0); Alkaline Phosphatase 78 U/L (46-116); Anion Gap 7.6 mmol/L (3-11); BUN 16 mg/dL (7-18); Bilirubin, Total 0.6 mg/dL (0.2-1.0); CO2 29.4 mmol/L (21.0-32.0); Calcium 9.3 mg/dL (8.5-10.1); Calculated LDL 129 mg/dL (<100); Chloride 105 mmol/L (98-107); Cholesterol 195 mg/dL (<200); Estimated GFR 99.41 (mL/min/1.73m2); Glucose 72 mg/dL (74-106); HDL Cholesterol 41 mg/dL (40-60); Potassium 4.3 mmol/L (3.5-5.1); Sodium 142 mmol/L (136-145); TSH 1.38 uIU/mL (0.36-3.74); Total Protein 7.4 g/dL (6.4-8.2); Triglyceride 126 mg/dL (<150)
[2023-03-22 20:04] LABS: FREE T4 0.94 ng/dL (0.76-1.46)
[2023-03-23 20:12] LABS: T3,Free 4.4 pg/mL (2.8-5.3)
== END 2023-03-22 09:43 | disposition home or self-care (01) ==
LOC: NCHCN 09:42
PROVIDERS: PCP Nurse Practitioner Family; Visit Provider Registered Nurse
DX: Z51.81 Encounter for therapeutic drug level monitoring (principal)
CPT/HCPCS: 80053; 80061; 82306; 85027; 83036; 84439; 84443; 84481

== ENCOUNTER 2023-08-17 16:56 | Emergency (ER) | payer MEDICAID, SELFPAY ==
[2023-08-17] VITALS (10 sets, daily range): BP systolic 116–137; BP diastolic 66–92; PULSE 62–76; RESP 12–28; TEMP 36.7; O2SAT 99
--- NOTE | 2023-08-17 17:00 | RT.EKG_ITS ---
APPROVED REPORT Exam: Resting ECG Reason for Exam: chest pain Patient Location: E HR:73 bpm ECG Measurements Heart Rate 73 AXIS IA 141 P 72 QRSd 94 QRS 67 QT 375 T 37 QTc 413 Conclusion Sinus rhythm...normal P axis, V-rate 60- 99
--- NOTE | 2023-08-17 18:30 | DI.RAD_ITS ---
Exam(s) XR CHEST 2V PA LATERAL EXAM: XR CHEST 2V PA LATERAL CLINICAL HISTORY: chest pain. TECHNIQUE: 2D digital imaging was performed. COMPARISON: CR XR CHEST 2V PA LATERAL from 08/28/2022 FINDINGS: 2 views: Heart size is normal. The mediastinum is not widened. Lungs are clear. No infiltrates nor pleural effusions. IMPRESSION: No acute pulmonary findings. DATA REPOSITORY: RADIATION DOSE DELIVERED:
[2023-08-17 19:20] LABS: Abs Immature Grans 0.02 10^3/uL (0.0-0.06); Absolute Basophil Count 0.06 10^3/uL (0.0-0.2); Absolute Eosinophil Count 0.07 10^3/uL (0.0-0.7); Absolute Lymphocyte Count 1.76 10^3/uL (1.2-3.4); Absolute Monocyte Count 0.47 10^3/uL (0.1-0.8); Absolute Neutrophil Count 5.36 10^3/uL (1.2-6.7); Basophils % 0.8; Carboxyhemoglobin 5.5 %; Eosinophils % 0.9; HCT 43.2 % (40.0-50.0); HGB 15.1 g/dL (13.5-17.5); Immature Grans % 0.3; Lymphocytes % 22.7; MCH 30.5 pg (27.0-33.0); MCV 87 fL (80-95); MPV 8.7 fL (8.0-11.0); Monocytes % 6.1; Neutrophils % 69.2; Platelet Count 278 10^3/uL (130-400); RBC 4.95 10^6/uL (4.36-5.78); RDW 11.6 % (11.8-14.1); RDW-SD 37.5 fL; WBC 7.74 10^3/uL (4.4-10.8)
--- NOTE | 2023-08-17 19:26 | W.ED.GENAD ---
Discharge Plan Disposition Patient Disposition: Home Discharge Details Clinical Impression: Chest pain Primary Care Provider: Leda Briggs ED Provider: Bethany Durham Home Meds and New Rx's Prescriptions: Continued methylphenidate HCl [Ritalin] 5 mg tablet 5 mg PO DAILY melatonin 10 mg capsule 10 mg PO HS PRN omeprazole 40 mg capsule,delayed release(DR/EC) 40 mg PO DAILY Discontinued lorazepam 0.5 mg tablet 0.5 mg PO DAILY PRN aripiprazole 5 mg tablet 5 mg PO DAILY fluconazole [Diflucan] 200 mg tablet 200 mg PO DAILY terbinafine HCl 1 % cream 1 applic topical BID Discharge Instructions Instructions: Chest Pain (ED) Additional Instructions: Please follow-up with primary care physician, if you continue to have intermittent pain you should have an outpatient stress test especially given your family history Your test today are reassuring however we did not repeat your troponin, please do follow-up on Sunday with your doctor and return earlier should you have new or worsening complaints or recurrence of symptoms Referrals: Leda Briggs [Primary Care Provider] - Discharge Data Discharge Date/Time-TO BE ENTERED AT DEPARTURE: 08/17/23 20:34 Medical Decision Making 38-year-old male, presenting with various symptoms that started while he was working in his garage. He reportedly had 5 motorcycles running in the garage door closed. He had perioral paresthesias, palpitations chest discomfort, and bilateral upper extremity and lower extremity paresthesias. He states this came on abruptly. He states his symptoms have since resolved Denies any fever or chills. He was doing light states he feels significantly improved now. Denies any early family history of coronary artery disease. Brother had an AZ at 40 Patient does not tobacco, denies any illicit drug use or alcohol consumption, denies history of hyperlipidemia or hypertension EKG does not show evidence of acute abnormality, troponin negative, diagnostic labs do not show evidence of acute abnormality I have asked to check to carboxyhemoglobin this patient developed symptoms while he was in his garage with exhaust, his carboxyhemoglobin was in the normal range but tobacco user At this time his vitals are stable, he has a negative troponin, the recommendation was that he stay for 3-hour delta troponin, patient has declined as he has to work in the morning, I did offer a work note, of note, patient is alert, oriented, of decisional capacity is encouraged to follow-up with primary care physician for further management He is encouraged to return should he have new or worsening complaints is aware he has not been fully evaluated at this time HPI General Date/Time Provider Initiated Documentation: 08/17/23 18:00. HPI Narrative: This 38-year-old male presents with report of chest pain, paresthesias, bilateral hand and lower extremity numbness. This started after he started all of the motorcycles in his garage with a close door and left thumb running for about 10 minutes. It was an enclosed space without ventilation. He states that he had an EKG initially on arrival since he has been sitting in the emergency department his symptoms have completely abated. He is asymptomatic at time of my assessment. He does admit brother who had an AZ at 38 he reports. Patient does have a history of hyperlipidemia, denies known hypertension history. Denies any illicit drug use. Does smoke tobacco daily. Denies any alcohol use. 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 Denies any calf pain or swelling. Denies recent flights surgeries or long drives. Denies any vision changes or current strength or sensation change. Related Data Home Medications Medication Instructions Recorded Confirmed melatonin 10 mg capsule 10 mg PO HS PRN 02/07/23 08/17/23 methylphenidate HCl 5 mg tablet 5 mg PO DAILY 02/07/23 08/17/23 (Ritalin) omeprazole 40 mg capsule,delayed 40 mg PO DAILY 02/07/23 08/17/23 release Allergies Allergy/AdvReac Type Severity Reaction Status Date / Time aspirin AdvReac Intermediate Unverified 08/17/23 17:02 General Stated Complaint: Chest Pain FABY: 3 PFSH All Active Problems (Updated 08/17/23 @ 20:23 by TATIANA Banegas) Acute appendicitis (Acute) Acute appendicitis (Acute) Finger laceration (Acute) Abdominal pain (Acute) Migraine headache without aura (Acute) Adverse reaction to antidepressant drug (Acute) Chest pain (Acute) Shortness of breath (Acute) Twitching (Acute) Medical History (Updated 08/17/23 @ 20:23 by TATIANA Banegas) History of blood transfusion Glaucoma Migraine headache Depression Allergic reaction Panic attack Thyroid nodule Degenerative disc disease, cervical ADHD Cervical disc disorder with myelopathy Chest wall pain GERD (gastroesophageal reflux disease) Dental infection Tinea corporis Muscle spasm History of depression Tobacco dependence Chronic lower back pain Acute angle-closure glaucoma Surgical History S/P laparoscopic appendectomy (~06/01/21) History of surgery on wrist History of knee surgery History of hernia repair Social History (Updated 02/07/23 @ 14:57 by Chetna Colby) Smoking/Tobacco Use Status: Current every day Tobacco Type: cigarettes Smoking risk assessment performed?: Yes Alcohol Intake: never Drug use: Never Substance use type: does not use Household members: spouse Housing: house Number of Children: 3 Pets and animals: Yes Pets and animals: cat(s), dog(s) and bird(s) What is your relationship status?: Panel score (0-1 are the most socially isolated patients): 1 What type of physical activity do you participate in: walking Seatbelt use: always Do you feel safe at home: Yes Do you feel safe in your relationship?: Yes Course Vital Signs Vital signs: Vital Signs Temperature 36.7 C 08/17/23 17:00 Pulse 76 08/17/23 17:00 Respiratory Rate 15 08/17/23 17:00 Blood Pressure 137/87 08/17/23 17:00 Pulse Oximetry 99 08/17/23 17:00 Temperature 36.7 C 08/17/23 17:00 Temperature Source Temporal Artery Scan 08/17/23 17:00 Pulse 76 08/17/23 17:00 Respiratory Rate 15 08/17/23 17:00 Respiratory Effort Normal 08/17/23 19:18 Respiratory Depth Normal 08/17/23 19:18 Respiratory Pattern Normal 08/17/23 19:18 Blood Pressure 137/87 08/17/23 17:00 Blood Pressure Position Sitting 08/17/23 17:00 Pulse Oximetry 99 08/17/23 17:00 Oxygen Delivery Method Room Air 08/17/23 17:00 Oxygen Flow Rate 0 08/17/23 17:00 Pain Level 2 08/17/23 17:00
--- NOTE | 2023-08-17 19:51 | DI.VRAD_ITS ---
PROCEDURE INFORMATION: Exam: XR Chest Exam date and time: 08/17/2023 7:27 PM Age: 38 years old Clinical indication: Other: Chest pain TECHNIQUE: Imaging protocol: Radiologic exam of the chest. Views: 2 views. COMPARISON: CR XR CHEST 2V PA LATERAL 08/28/2022 12:05 PM FINDINGS: Lungs: No consolidation. Pleural spaces: No pleural effusion. No pneumothorax. Heart/Mediastinum: No cardiomegaly. Bones/joints: No acute fracture. IMPRESSION: No acute cardiopulmonary pathology. Dictated and Authenticated by: Chandni Recio MD. Ordering:VANDANA Sims MD
[2023-08-17 20:02] LABS: ALT 25 U/L (16-63); AST 20 U/L (15-37); Albumin 4.4 g/dL (3.4-5.0); Alkaline Phosphatase 69 U/L (46-116); BUN 16 mg/dL (7-18); Bilirubin, Total 0.7 mg/dL (0.2-1.0); Calcium 9.7 mg/dL (8.5-10.1); Chloride 104 mmol/L (98-107); Glucose 94 mg/dL (74-106); Lipase 66 U/L (16-77); Potassium 3.5 mmol/L (3.5-5.1); Sodium 139 mmol/L (136-145); TSH (W/Ref FT4) 0.98 uIU/mL (0.36-3.74); Total Protein 7.6 g/dL (6.4-8.2)
[2023-08-17 20:06] LABS: Troponin I < 50 ng/L (<or=60)
== END 2023-08-17 20:34 | disposition home or self-care (01) ==
PROVIDERS: Emergency Provider Physician Assistant; PCP Nurse Practitioner Family
DX: R07.89 Other chest pain (principal); R20.2 Paresthesia of skin; R20.0 Anesthesia of skin; E78.5 Hyperlipidemia, unspecified; F17.210 Nicotine dependence, cigarettes, uncomplicated; Z82.49 Family history of ischemic heart disease and other diseases of the circulatory system
CPT/HCPCS: 36415; 80053; 82375; 83690; 93005; 99283; 71046; 83735; 84443; 84484; 85025; 93010

== ENCOUNTER 2023-10-22 20:55 | Emergency (ER) | payer MEDICAID, SELFPAY ==
[2023-10-22 20:57] VITALS: BP 136/85; PULSE 80; RESP 18; TEMP 36.7; O2SAT 100
[2023-10-22] MEDS: Lidocaine/Epinephri/Tetracaine Topical Gel 3 ML TP (21:05)
--- NOTE | 2023-10-22 21:12 | ED.GENADUL_ITS ---
Discharge Plan Disposition Patient Disposition: Home Discharge Details Clinical Impression: Laceration of right hand Primary Care Provider: VIKKI MARIA ED Provider: Moses Bal Home Meds and New Rx's Prescriptions: No Action methylphenidate HCl [Ritalin] 5 mg tablet 5 mg PO DAILY melatonin 10 mg capsule 10 mg PO HS PRN lorazepam 0.5 mg tablet 0.5 mg PO DAILY PRN Patient Comments: TAKE 1 TABLET BY MOUTH ONCE DAILY NEEDED FOR SEVERE ANXIETY cyclobenzaprine 5 mg tablet 5 mg PO DAILY PRN Patient Comments: TAKE 1 TO 2 TABLETS BY MOUTH EVERY NIGHT NEEDED FOR MUSCLE PAIN / TIGHTNESS Discharge Instructions Instructions: Laceration (ED) Additional Instructions: Please keep the area clean and dry. Monitor closely for any redness, drainage or discharge. Please keep the area bandaged. the Dermabond will come off in the next few days f. to avoid any sun to the area for the next year. Apply moisturizer or vitamin E to the area twice daily for the next 12 months for the best chance of wound/scar medication. Please take a daily multivitamin as well as this can help in wound healing. Referrals: VIKKI MARIA, HEATER TENDER [Primary Care Provider] - Medical Decision Making This is a pleasant 38-year-old male with no significant past medical history whose tetanus is up-to-date who is left-hand dominant presents today for laceration to the palm of his right hand. Patient states that he was working with a metal broom when it Slipped off and this subsequently caused the metal part to cut his hand. He immediately came to the ER for further assessment. He denies any numbness or tingling. No other complaints at this time. Exam demonstrates a bit of skin that is shaved off in the center of the palm, with a very small chunk of flesh missing at the base. This is only a few millimeters. We will anesthetize the area with let gel. Will then remove excess skin and suture or Dermabond as indicated. 9:52 PM Removal of the skin reveals no evidence of deep tissue involvement. It appears to be more of a superficial laceration. No wound edges to be reapproximated. Dermabond was placed over the avulsed area, bleeding has stopped. Patient tolerated this well. Patient will be discharged home. Discussed red flags for which to return. I have extensively reviewed the treatment plan and discharge i nstructions with the patient. I have addressed all patient concerns at this time. The patient was made aware of what symptoms to monitor for that would warrant a return to the emergency department. Discussed the plan with the patient, they demonstrate verbal understanding and agreement with our assessment and plan at this time. The documentation in this chart was dictated using [employer] dictation software. Please excuse any dictation errors. HPI General Date/Time Provider Initiated Documentation: 10/22/23 21:01 . HPI Narrative: This is a pleasant 38-year-old male with no significant past medical history whose tetanus is up-to-date who is left-hand dominant presents today for laceration to the palm of his right hand. Patient states that he was working with a metal broom when it Slipped off and this subsequently caused the metal part to cut his hand. He immediately came to the ER for further assessment. He denies any numbness or tingling. No other complaints at this time. Related Data Home Medications Medication Instructions Recorded Confirmed melatonin 10 mg capsule 10 mg PO HS PRN 02/07/23 10/22/23 methylphenidate HCl 5 mg tablet 5 mg PO DAILY 02/07/23 10/22/23 (Ritalin) cyclobenzaprine 5 mg tablet 5 mg PO DAILY PRN 10/22/23 10/22/23 lorazepam 0.5 mg tablet 0.5 mg PO DAILY PRN 10/22/23 10/22/23 Allergies Allergy/AdvReac Type Severity Reaction Status Date / Time aspirin AdvReac Intermediate Unverified 10/22/23 21:04 General Stated Complaint: Laceration FABY: 4 Review of Systems All systems reviewed & are unremarkable except as noted in HPI and below PFSH All Active Problems (Updated 10/22/23 @ 21:18 by Moses Bal DO) Laceration of right hand (Acute) Acute appendicitis (Acute) Acute appendicitis (Acute) Finger laceration (Acute) Abdominal pain (Acute) Migraine headache without aura (Acute) Adverse reaction to antidepressant drug (Acute) Chest pain (Acute) Shortness of breath (Acute) Twitching (Acute) Medical History History of blood transfusion Glaucoma Migraine headache Depression Allergic reaction Panic attack Thyroid nodule Degenerative disc disease, cervical ADHD Cervical disc disorder with myelopathy Chest wall pain GERD (gastroesophageal reflux disease) Dental infection Tinea corporis Muscle spasm History of depression Tobacco dependence Chronic lower back pain Acute angle-closure glaucoma Surgical History S/P laparoscopic appendectomy (~06/01/21) History of surgery on wrist History of knee surgery History of hernia repair Social History Smoking/Tobacco Use Status: Current every day Tobacco Type: cigarettes Smoking risk assessment performed?: Yes Alcohol Intake: never Drug use: Never Substance use type: does not use Household members: spouse Housing: house Number of Children: 3 Pets and animals: Yes Pets and animals: cat(s), dog(s) and bird(s) What is your relationship status?: Panel score (0-1 are the most socially isolated patients): 1 What type of physical activity do you participate in: walking Seatbelt use: always Do you feel safe at home: Yes Do you feel safe in your relationship?: Yes Exam Narrative Exam Narrative: 1.Const: Well-nourished, Well-developed, appearing stated age 2.Eyes: PERRL, no conjunctival injection, and symmetrical lids. 3.ENT: Atraumatic external nose and ears. Moist MM. Neck: Symmetric, trachea midline, No thyromegaly. 4.CVS: +S1/S2, No murmurs or gallops. Peripheral pulses 2+ and equal in all extremities. Brisk capillary refill in all extremities. 5.RESP: Unlabored respiratory effort. Clear to auscultation bilaterally. No wheezes rales or rhonchi 6.GI: Soft, Nontender/Nondistended, No hepatosplenomegaly. No guarding or rebound. 7.MSK: Normocephalic/Atraumatic, Extremities w/o deformity or ttp No cyanosis or clubbing, Normal movement of all extremities 8.Skin: Right hand demonstrates superficial laceration over the mid palmar aspect, most of the skin is just shaved, however there is a very small 3 mm chunk that appears to be missing. No active hemorrhage at this time. Distal exam demonstrates good capillary refill, normal flexion and extension of all fingers. 9.Neuro: computer drafter II-XII grossly intact. Sensation grossly intact, no focal neurologic deficits. 10.Psych: (AAO) x3. Appropriate mood and affect Course Vital Signs Vital signs: Vital Signs Temperature 36.7 C 10/22/23 20:57 Pulse 80 10/22/23 20:57 Respiratory Rate 18 10/22/23 20:57 Blood Pressure 136/85 10/22/23 20:57 Pulse Oximetry 100 10/22/23 20:57 Temperature 36.7 C 10/22/23 20:57 Temperature Source Tympanic 10/22/23 20:57 Pulse 80 10/22/23 20:57 Respiratory Rate 18 10/22/23 20:57 Blood Pressure 136/85 10/22/23 20:57 Blood Pressure Position Sitting 10/22/23 20:57 Pulse Oximetry 100 10/22/23 20:57 Oxygen Delivery Method Room Air 10/22/23 20:57 Oxygen Flow Rate 0 10/22/23 20:57 Pain Level 3 10/22/23 20:57
== END 2023-10-22 22:06 | disposition home or self-care (01) ==
PROVIDERS: Emergency Provider Student in an Organized Health Care Education/Training Program; PCP Nurse Practitioner Family
DX: S61.411A Laceration without foreign body of right hand, initial encounter (principal); W26.8XXA Contact with other sharp object(s), not elsewhere classified, initial encounter
CPT/HCPCS: 99282; 99283; J1100; J1885; J2001; J2250; J2405; J2704

== ENCOUNTER 2023-11-18 18:34 | Emergency (ER) | payer MEDICAID, SELFPAY ==
[2023-11-18 18:37] VITALS: BP 144/81; PULSE 111; TEMP 36.5; O2SAT 99
--- NOTE | 2023-11-18 19:25 | ED.GENADUL_ITS ---
HPI General Mode of arrival: ambulatory . Date/Time Provider Initiated Documentation: 11/18/23 18:56 . Limitations to Documentation: no limitations . Information obtained by: patient . HPI Narrative: 38yo male male with history of chronic low back pain with intermittent flares, here with severe low back pain. Patient notes yesterday he was moving a gun safe and attempting to lift it onto olu and experienced a sudden popping sensation in his lumbar spine. He notes he dropped to the ground with severe pain in his back radiating into his right leg. He notes any movement of his leg causes a lightening bolt sensation. He also notes paresthesias that are mild left back to buttock. Patient's primary care physician started him on prednisone and Flexeril yesterday which she has been taking and have not provided relief. Patient states that typically when he has flares of pain he has a sciatic component affecting his right lower extremity. This current flare seems more persistent and significant. He has no associated bowel or bladder dysfunction. No focal weakness. Related Data Home Medications Medication Instructions Recorded Confirmed lorazepam 0.5 mg tablet 0.5 mg PO DAILY PRN 10/22/23 11/18/23 hydroxyzine HCl 25 mg tablet 50 mg PO HS 11/18/23 11/18/23 lisdexamfetamine 30 mg capsule 30 mg PO DAILY 11/18/23 11/18/23 (Vyvanse) prednisone 20 mg tablet 20 mg PO DAILY 11/18/23 11/18/23 Allergies Allergy/AdvReac Type Severity Reaction Status Date / Time aspirin AdvReac Intermediate Unverified 11/18/23 19:35 General Stated Complaint: Nk/Back Pain FABY: 3 Review of Systems All systems reviewed & are unremarkable except as noted in HPI and below Constitutional Constitutional: Denies fever(s) Musculoskeletal Musculoskeletal: Reports as per HPI Neurologic Neurologic: Reports as per HPI, Denies localized weakness and Reports paresthesias Exam Const General: cooperative and no acute distress HENMT Mouth: moist mucous membranes Eyes Conjunctivae: normal conjunctivae Sclera: normal sclerae Resp Auscultation: clear to auscultation bilaterally, no rales, no rhonchi and no wheezes Cardio Rate: regular rate and not tachycardic Rhythm: regular rhythm Back/Spine/Pelvis Back: No mass, No erythema and No warmth Cervical Spine: No cervical spinal tenderness and No step off deformity Thoracic/Lumbar Spine: paraspinal tenderness (right lumbar), No thoracic spinal tenderness and No lumbar spinal tenderness Skin General skin exam: no rashes or lesions noted Neuro General: patient alert, patient awake, patient oriented x3 and tone normal Extrem General: no edema Course Vital Signs Vital signs: Vital Signs Temperature 36.5 C 11/18/23 18:37 Pulse 111 H 11/18/23 18:37 Blood Pressure 144/81 H 11/18/23 18:37 Pulse Oximetry 99 11/18/23 18:37 Temperature 36.5 C 11/18/23 18:37 Pulse 111 H 11/18/23 18:37 Respiratory Effort Normal, Non-Labored 11/18/23 19:01 Blood Pressure 144/81 H 11/18/23 18:37 Blood Pressure Position Sitting 11/18/23 18:37 Pulse Oximetry 99 11/18/23 18:37 Oxygen Delivery Method Room Air 11/18/23 18:37 Oxygen Flow Rate 0 11/18/23 18:37 Medical Decision Making 38-year-old male with history of chronic lumbar back pain with intermittent sciatica, here with severe exacerbation of right-sided lumbar back pain with paresthesias and right greater than left lower extremity since yesterday when he was moving a heavy object. Patient does have some diminished sensation on right. He has full strength bilateral lower extremities with normal DTRs. No bowel or bladder dysfunction. I discussed with patient that we do not have MRI capability tonight. He is agreeable to pain management and will call his primary care physician first thing in the morning to discuss additional outpatient diagnostic testing. Toradol IM and lidocaine patch were administered. Acetaminophen administered. Patient is driving home tonight I will give him oxycodone and a single Valium. I discussed how this should be administered and he verbalized understanding. Patient verbalized understanding of discharge instructions and need for timely outpatient follow-up. Quality:SDOH Health Related Social Needs: No Data to Display PFSH All Active Problems (Updated 11/18/23 @ 19:28 by Blayne Villalba MD) Severe low back pain (Acute) Bilateral leg paresthesia (Acute) Laceration of right hand (Acute) Acute appendicitis (Acute) Acute appendicitis (Acute) Finger laceration (Acute) Abdominal pain (Acute) Migraine headache without aura (Acute) Adverse reaction to antidepressant drug (Acute) Chest pain (Acute) Shortness of breath (Acute) Twitching (Acute) Medical History History of blood transfusion Glaucoma Migraine headache Depression Allergic reaction Panic attack Thyroid nodule Degenerative disc disease, cervical ADHD Cervical disc disorder with myelopathy Chest wall pain GERD (gastroesophageal reflux disease) Dental infection Tinea corporis Muscle spasm History of depression Tobacco dependence Chronic lower back pain Acute angle-closure glaucoma Surgical History S/P laparoscopic appendectomy (~06/01/21) History of surgery on wrist History of knee surgery History of hernia repair Social History Smoking/Tobacco Use Status: Current every day Tobacco Type: cigarettes Smoking risk assessment performed?: Yes Alcohol Intake: never Drug use: Never Substance use type: does not use Household members: spouse Housing: house Number of Children: 3 Pets and animals: Yes Pets and animals: cat(s), dog(s) and bird(s) What is your relationship status?: Panel score (0-1 are the most socially isolated patients): 1 What type of physical activity do you participate in: walking Seatbelt use: always Do you feel safe at home: Yes Do you feel safe in your relationship?: Yes Discharge Plan Disposition Patient Disposition: Home Condition: Stable Discharge Details Clinical Impression: Bilateral leg paresthesia, Severe low back pain Primary Care Provider: VIKKI MARIA ED Provider: Blayne Villalba Home Meds and New Rx's Prescriptions: Continued lorazepam 0.5 mg tablet 0.5 mg PO DAILY PRN Patient Comments: TAKE 1 TABLET BY MOUTH ONCE DAILY NEEDED FOR SEVERE ANXIETY hydroxyzine HCl 25 mg tablet 50 mg PO HS lisdexamfetamine [Vyvanse] 30 mg capsule 30 mg PO DAILY prednisone 20 mg tablet 20 mg PO DAILY Patient Comments: TAKE TWO TABLETS BY MOUTH EVERY DAY FOR 5 DAYS Discontinued cyclobenzaprine 5 mg tablet 5 mg PO DAILY PRN Patient Comments: TAKE 1 TO 2 TABLETS BY MOUTH EVERY NIGHT NEEDED FOR MUSCLE PAIN / TIGHTNESS Discharge Instructions Instructions: Diazepam (By mouth), Oxycodone, Rapid Release (By mouth), Lumbar Disc Herniation (ED) Additional Instructions: Please take acetaminophen (tylenol) - 650mg every 6 hours by mouth as needed for pain. Please take ibuprofen over the counter. Take 600mg by mouth every 6 hours as needed for pain. Please follow-up with your primary care physician tomorrow. Additional outpatient diagnostic studies including MRI of the lumbar spine may be warranted if symptoms do not improve overnight. Avoid activities that worsen pain. Return to the ER immediately for any worsening or new concerning symptoms. Referrals: VIKKI MARIA NP [Primary Care Provider] - Discharge Data Discharge Date/Time-TO BE ENTERED AT DEPARTURE: 11/18/23 19:55
[2023-11-18] MEDS: diazePAM 2 MG TAB PO (19:42)
[2023-11-18] MEDS: Acetaminophen 325 MG TAB 650 MG PO (19:42)
[2023-11-18] MEDS: Lidocaine 5% Patch 1 PATCH TP (19:43)
[2023-11-18] MEDS: Ketorolac 30 MG/ML VIAL IM (19:50)
== END 2023-11-18 19:55 | disposition home or self-care (01) ==
PROVIDERS: Emergency Provider Student in an Organized Health Care Education/Training Program; PCP Nurse Practitioner Family
DX: M54.50 Low back pain, unspecified (principal); R20.2 Paresthesia of skin; F17.210 Nicotine dependence, cigarettes, uncomplicated
CPT/HCPCS: 96372; 99283; J1885

== ENCOUNTER → 2023-11-28 14:04 | Outpatient (CLI) | payer MEDICAID, SELFPAY ==
--- NOTE | 2023-11-28 | DI.MRI_ITS ---
Exam(s) MR LUMBAR SPINE WO EXAM: MR LUMBAR SPINE WO CLINICAL HISTORY: M54.17 Radiculopathy, lumbosacral region. TECHNIQUE: Multiplanar multisequence MRI of the Lumbar spine was performed. COMPARISON: CT CT ABDOMEN PELVIS W from 05/31/2021 FINDINGS: Bones: The last intervertebral disc space is designated the L5/S1 level for the numbering purpose of this examination. The vertebral body heights are well maintained. Alignment is satisfactory. The si gnal characteristics are unremarkable. Cord: The conus tip ends at the T12 level. It is of normal size and signal intensity. T12-L1: No disc herniations or bulges are present. No central spinal canal or neural foraminal stenos is. L1-2: No disc herniations or bulges are present. No central spinal canal or neural foraminal stenosis . L2-3: No disc herniations or bulges are present. No central spinal canal or neural foraminal stenosis . L3-4: No disc herniations or bulges are present. No central spinal canal or neural foraminal stenosis . L4-5: No disc herniations or bulges are present. No central spinal canal or neural foraminal stenosis . L5-S1: There is a small right sided disc herniation which extends into the right neural foramen. The re is mild narrowing of the right neural foramen. No significant central spinal canal or left neural foraminal stenosis is seen. Soft tissues: The visualized SI joints and sacrum are well maintained. The paraspinal soft tissues ar e unremarkable. IMPRESSION: Small right disc herniation extending into the L5-S1 neural foramen causing mild right neural foramin al stenosis. DATA REPOSITORY:
== END ==
PROVIDERS: PCP Nurse Practitioner Family; Visit Provider Nurse Practitioner Family
DX: M51.37 Other intervertebral disc degeneration, lumbosacral region (principal); M99.63 Osseous and subluxation stenosis of intervertebral foramina of lumbar region
CPT/HCPCS: 72148